=== PATIENT | female | born 1950 | race American Indian/Alaskan Native ===

== ENCOUNTER 2018-02-15 07:20 | Inpatient (IN) | payer MEDICARE, MEDICAID ==
[2018-02-15 07:21] VITALS: BMI 28.5
--- NOTE | 2018-02-15 07:53 | C.PDOC ---
History Of Present Illness 67 y/o female on hemodialysis transferred from [facility] for dialysis become [facility] does not have dialysis service at time time. The patient was found to be febrile and still having shortness of breath. Denies vomiting and diarrhea. Time Seen by Provider: 02/15/18 07:38 Chief Complaint (Nursing): Shortness Of Breath History Per: EMS History/Exam Limitations: clinical condition Onset/Duration Of Symptoms: Hrs Current Symptoms Are (Timing): Still Present Past Medical History Reviewed: Historical Data, Nursing Documentation, Vital Signs Vital Signs: Last Vital Signs Temp 101.6 F H 02/15/18 07:36 Pulse 84 02/15/18 07:36 Resp 24 02/15/18 07:41 BP 155/60 H 02/15/18 07:36 Pulse Ox 96 02/15/18 08:54 - Medical History PMH: CHF, COPD, Dementia, Diabetes, Gall Bladder Disease, HTN, Peripheral Edema , Chronic Kidney Disease, Sleep Apnea Surgical History: Cholecystectomy Denies: Pacemaker - [facility] Procedures ANGIOPLASTY OF OTHER NON-CORONARY VESSEL(S) (04/30/15) CENTRAL VENOUS CATHETER PLACEMENT WITH GUIDANCE (02/20/13) COLONOSCOPY (02/20/13) CONTRAST RENAL ARTERIOGR (04/09/06) CORONAR ARTERIOGR-2 CATH (04/09/06) DX ULTRASOUND-HEART (04/09/06) ESOPHAGOGASTRODUODENOSCOPY [EGD] W/CLOSED BIOPSY (02/20/13) HEMODIALYSIS (10/31/14) INFLUENZA VACCINATION (06/04/13) INJECT/INFUSE NEC (05/11/14) LT HEART ANGIOCARDIOGRAM (04/09/06) NON-INVASIVE MECHANICAL VENTILATION (06/04/13) OTHER ENDOSCOPY OF SM INTEST (06/04/13) PERFORMANCE OF URINARY FILTRATION, MULTIPLE (05/29/15) PROCEDURE ON SINGLE VESSEL (04/30/15) RT/LEFT HEART CARD CATH (04/09/06) Family History: States: No Known Family Hx - Social History Hx Tobacco Use: Yes (Quit years ago) Hx Alcohol Use: No Hx Substance Use: No - Immunization History Hx Tetanus Toxoid Vaccination: No Hx Influenza Vaccination: No Hx Pneumococcal Vaccination: No Review Of Systems Except As Marked, All Systems Reviewed And Found Negative. Physical Exam - Physical Exam Appears: Chronically Ill, Other (obese, bedbound at baseline) Skin: Warm, Dry, No Rash Head: Atraumatic, Normacephalic Eye(s): bilateral: PERRL, EOMI Oral Mucosa: Moist Neck: Normal ROM, Supple Chest: Symmetrical, No Tenderness Cardiovascular: Rhythm Regular, No Friction Rub, No Murmur Respiratory: Rales (scattered), No Rhonchi, No Wheezing Gastrointestinal/Abdominal: Soft, No Tenderness, No Guarding, No Rebound Extremity: No Tenderness, No Swelling Pulses: Left Radial: Normal, Right Radial: Normal Neurological/Psych: Oriented x3, Normal Speech, Other (answers questions appropriately.) ED Course And Treatment - Laboratory Results Result Diagrams: 02/15/18 08:30 O2 Sat by Pulse Oximetry: 96 (RA) Pulse Ox Interpretation: Normal Critical Care Time - Critical Care Note Total Time (in mins): 45 Comments: See Medical decision Making Documented critical care: time excludes all time spent performing seperately billable procedures. Medical Decision Making Medical Decision Making: Old records reviewed, the patient was seen at [facility] earlier today and had normal WBC, CXR reviewed there may be possible pneumonia in the RLL. Progress: D/w Dr. Monserrat Randall (hospitalist) advise to repeat labs and start septic work up. Fluids were not started because the patient is a dialysis and is fluid overloaded. Blood cultures collected. EKG at 0800: NSR at 80, normal axis. The patient does not make urine so not urine cultures collected. The patient was started on Rocephin and Zithromax for CAP as the patient is coming from home , has no recent admission and does not live in the care home. Those medications were canceled and Dr. Monserrat Randall is requesting to switch the medications to Cipro 400mg IV, Zosyn 2.275 and Vanco as the patient has history of drug resistance. Disposition - Disposition Disposition: HOSPITALIZED Disposition Time: 08:39 Condition: GUARDED Forms: [facility] (Burmese) - POA Present On Arrival: None - Clinical Impression Clinical Impression: Pneumonia, Hyperkalemia, Renal failure, Uremia - PA / VISUAL BASIC .NET DEVELOPER / Resident Statement MD/DO has reviewed & agrees with the documentation as recorded. - Scribe Statement The provider has reviewed the documentation as recorded by the Reggieibcaridad Nick All medical record entries made by the Reggieibcaridad were at my direction and personally dictated by me. I have reviewed the chart and agree that the record accurately reflects my personal performance of the history, physical exam, medical decision making, and the department course for this patient. I have also personally directed, reviewed, and agree with the discharge instructions and disposition.
--- NOTE | 2018-02-15 08:30 | RAD ---
HISTORY: Sepsis Patient COMPARISON: No prior. FINDINGS: LUNGS: Diffuse bilateral infiltrates ; findings may represent edema/CHF however bilateral pneumonia not excluded. Bilateral effusions. PLEURA: As above. No pneumothorax apparent. CARDIOVASCULAR: Heart appears enlarged OSSEOUS STRUCTURES: No significant abnormalities. VISUALIZED UPPER ABDOMEN: Normal. OTHER FINDINGS: None. IMPRESSION: Diffuse bilateral infiltrates ; findings may represent edema/CHF however bilateral pneumonia not excluded. Bilateral effusions.
[2018-02-15 08:34] LABS: BASO % 0.2 % (0.0-2.0); LYMPH # 0.7 K/uL (1.0-4.3); LYMPH % 9.1 % (20.0-40.0); MEAN CELL VOLUME 84.1 fL (81.0-99.0); MEAN CORPUSCULAR HEMOGLOBIN 27.3 pg (27.0-31.0); MEAN CORPUSCULAR HGB CONC 32.4 g/dL (33.0-37.0); MEAN PLATELET VOLUME 9.1 fL (7.2-11.7); MONO # 1.2 K/uL (0.0-0.8); MONO % 16.4 % (0.0-10.0); NEUT # 5.6 K/uL (1.8-7.0); NEUT % 74.3 % (50.0-75.0); PLATELET COUNT 164 K/uL (130-400); RED CELL DISTRIBUTION WIDTH 14.5 % (11.5-14.5); WHITE BLOOD COUNT 7.5 K/uL (4.8-10.8)
[2018-02-15] MEDS ORDERED: Acetaminophen 650mg/20.3ml solution UD ONE (08:35)
[2018-02-15] MEDS ORDERED: cefTRIAXone IV 1 gm in Dextros 50 ML IV ONE (08:36)
[2018-02-15] MEDS ORDERED: Azithromycin 500mg/250ML NS 500 MG/250 ML BAG IVPB STA (08:36)
[2018-02-15 08:41] LABS: INR 1.2; PROTHROMBIN TIME 13.3 SECONDS (9.7-12.2)
[2018-02-15 08:42] LABS: VENOUS BLOOD GAS BASE EXCESS 8.5 mmol/L (0.0-2.0); VENOUS BLOOD GAS PCO2 52 mmHg (40-60); VENOUS BLOOD GAS PO2 41 mm/Hg (30-55); VENOUS BLOOD PH 7.43 (7.32-7.43)
[2018-02-15] MEDS ORDERED: cefTRIAXone IV 1 gm in Dextros 50 ML IVPB ONE (08:45)
[2018-02-15] MEDS ORDERED: Vancomycin 1 gm/NS 200 ml 1 GM/200 ML BAG IVPB STA (08:57)
[2018-02-15] MEDS ORDERED: Piperacill/Tazo 2.25gm in Dex 2.25 GM/50 ML BAG IVPB STA (08:58)
[2018-02-15] MEDS ORDERED: Ciprofloxacin 400mg/200ml D5W 400 MG/200 ML BAG IVPB STA (08:59)
[2018-02-15] MEDS ORDERED: Oxycodone/Acetaminophen 5/325 mg Tab ONE (09:06)
[2018-02-15] MEDS ORDERED: Piperacillin/Tazobact 3.375 gm 100 ML IVPB ONE (09:06)
[2018-02-15] MEDS ORDERED: Ciprofloxacin 400mg/200ml D5W 400 MG/200 ML BAG IVPB ONE (09:06)
[2018-02-15 09:07] LABS: LYMPHOCYTE 11 % (20-40); MONOCYTE 17 % (0-10); NEUTROPHIL 72 % (50-75); PLATELET ESTIMATE NORMAL (NORMAL); TOTAL CELLS COUNTED 100
[2018-02-15 09:08] LABS: ANISOCYTOSIS SLIGHT; HYPOCHROMIC SLIGHT; POIKILOCYTOSIS SLIGHT
[2018-02-15 09:13] LABS: ALB/GLOB RATIO 1.1 (1.0-2.1); ALBUMIN 3.8 g/dL (3.5-5.0); CALCIUM 9.7 mg/dl (8.6-10.4)
[2018-02-15] MEDS ORDERED: Oxycodone/Acetaminophen 5/325 mg Tab PO STA (09:18)
--- NOTE | 2018-02-15 10:10 | CP.PCM.HP ---
<Rosalina Herrmann - Last Filed: 02/15/18 16:37> History of Present Illness - History of Present Illness History of Present Illness: CC: SOB HPI: Patient is a 67 year old female with a past medical history of ESRD on hemodialysis (Sunday, Sunday, Sunday), COPD, CHF, diabetes, hypertension, macular degeneration, peripheral neuropathy, hyperlipidemia, and CVA, who presents to the ED with complaints of shortness of breath for two days. She originally went to [facility] ER, and was transferred to [facility] as [facility] does not have dialysis center. Patient is a poor historian due to lethargy secondary to receiving pain medication in the ED. She states she felt short of breath two days ago after getting dialysis, and the dyspnea has persisted. She also reports having nausea, vomiting, and abdominal pain. Review of systems limited due to patient's lethargy secondary to medication given in ED. PMD: Dr. Gonzales Nephrology: Dr. Jacques PMHx: PER EMR- ESRD on hemodialysis (Sunday, Sunday, Sunday), COPD, CHF, diabetes, hypertension, macular degeneration, peripheral neuropathy, hyperlipidemia, and CVA SurgHx: patient denies; per EMR- pacemaker, left arm AV shunt, , right eye corneal surgery, right toe#5 amputation, cardiac cath FamHx: patient denies fam hx SocHx: denies tobacco, alcohol, and drug use; former 2pack per day smoker (did not answer when asked for how many year); lives alone; has a walker for ambulation but does not use. Allergies: NKDA Medications: per EMR- norvasc 10mg po daily, asa 81mg po daily, lipitor 10mg po hs, phoslo 667mg po tid, clonidine 0.1mg po bid, docusate 100mg po bid, pepcid 20mg po daily, gabapentin 100mg po tid, losartan 25mg po daily, metoprolol 25mg po bid, protonix 20mg po daily, renagel 800mg po tid. Present on Admission - Present on Admission Any Indicators Present on Admission: No Review of Systems - Review of Systems Review of Systems: lethargic secondary to medication; limited review of systems. - Constitutional Constitutional: absent: Headache - EENT Eyes: Other Visual Disturbances (blind bilaterally) - Cardiovascular Cardiovascular: Dyspnea. absent: Chest Pain - Respiratory Respiratory: Cough, Dyspnea. absent: Excessive Mucous Production - Gastrointestinal Gastrointestinal: Abdominal Pain, Vomiting. absent: Constipation, Diarrhea, Nausea - Genitourinary Genitourinary: Voiding Freq/Small Amts - Neurological Neurological: absent: Headaches - Endocrine Endocrine: absent: Palpitations Past Patient History - Infectious Disease Hx of Infectious Diseases: None - Tetanus Immunizations Tetanus Immunization: Unknown - Past Social History Smoking Status: Former Smoker - CARDIAC Hx Congestive Heart Failure: Yes Hx Hypertension: Yes Hx Pacemaker: No Hx Peripheral Edema: Yes - PULMONARY Hx Chronic Obstructive Pulmonary Disease (COPD): Yes Hx Sleep Apnea: Yes - NEUROLOGICAL Hx Dementia: Yes - HEENT Hx HEENT Problems: Yes Hx Blind: Yes (legally blind) - RENAL Hx Chronic Kidney Disease: Yes - ENDOCRINE/METABOLIC Hx Endocrine Disorders: Yes Hx Diabetes Mellitus Type 1: Yes Hx Diabetes Mellitus Type 2: Yes - HEMATOLOGICAL/ONCOLOGICAL Hx Blood Disorders: No - INTEGUMENTARY Hx Dermatological Problems: No - MUSCULOSKELETAL/RHEUMATOLOGICAL Hx Musculoskeletal Disorders: No Hx Back Pain: Yes (fell in [employer] 2012) Hx Falls: Yes Hx Unsteady Gait: Yes (walker) - GASTROINTESTINAL Hx Gall Bladder Disease: Yes - GENITOURINARY/GYNECOLOGICAL Hx Genitourinary Disorders: Yes (ANURIA) - PSYCHIATRIC Hx Substance Use: No - SURGICAL HISTORY Hx Cholecystectomy: Yes - ANESTHESIA Hx Anesthesia: Yes Hx Anesthesia Reactions: No Hx Malignant Hyperthermia: No Meds Allergies/Adverse Reactions: Allergies Allergy/AdvReac Type Severity Reaction Status Date / Time No Known Allergies Allergy Verified 10/31/16 19:41 Physical Exam - Constitutional Appears: No Acute Distress, Chronically Ill, Other (lethargic) - Eye Exam Eye Exam: absent: Normal appearance (right eye-cataract) - ENT Exam ENT Exam: Mucous Membranes Dry - Respiratory Exam Respiratory Exam: Decreased Breath Sounds, Rales, Rhonchi, Wheezes. absent: Clear to Auscultation Bilateral, Respiratory Distress - Cardiovascular Exam Cardiovascular Exam: REGULAR RHYTHM, +S1, +S2, Systolic Murmur - GI/Abdominal Exam GI & Abdominal Exam: Normal Bowel Sounds, Soft. absent: Distended, Firm, Tenderness - Extremities Exam Extremities exam: Positive for: pedal edema, pedal pulses present. Negative for : tenderness Additional comments: AV fistula-left arm - Neurological Exam Additional comments: lethargic; UE/LE 5/5 strength, CNII-XII intact - Psychiatric Exam Psychiatric exam: Flat Affect - Skin Skin Exam: Intact, Normal Color, Warm Results - Vital Signs Recent Vital Signs: Last Vital Signs Temp 101.6 F H 02/15/18 07:36 Pulse 84 02/15/18 07:36 Resp 24 02/15/18 07:41 BP 155/60 H 02/15/18 07:36 Pulse Ox 96 02/15/18 09:02 - Labs Result Diagrams: 02/15/18 08:30 02/15/18 08:30 Labs: Laboratory Results - last 24 hr 02/15/18 02/15/18 02/15/18 08:30 08:30 08:30 WBC 7.5 RBC 3.30 L Hgb 9.0 L Hct 27.7 L MCV 84.1 MCH 27.3 MCHC 32.4 L RDW 14.5 Plt Count 164 MPV 9.1 Neut % (Auto) 74.3 Lymph % (Auto) 9.1 L [place] % (Auto) 16.4 H Eos % (Auto) 0.0 Baso % (Auto) 0.2 Neut # (Auto) 5.6 Lymph # (Auto) 0.7 L [place] # (Auto) 1.2 H Eos # (Auto) 0.0 Baso # (Auto) 0.0 Neutrophils % (Manual) 72 Lymphocytes % (Manual) 11 L Monocytes % (Manual) 17 H Platelet Estimate Normal Hypochromasia (manual) Slight Poikilocytosis (manual Slight Anisocytosis (manual) Slight PT 13.3 H INR 1.2 APTT 34 pO2 VBG pH VBG pCO2 VBG HCO3 VBG Total CO2 VBG O2 Sat (Calc) VBG Base Excess VBG Potassium Glucose Lactate Crit Value Called To Crit Value Called By Crit Value Read Back Blood Gas Notified Time Sodium 138 Potassium 6.5 H* Chloride 95 L Carbon Dioxide 34 H Anion Gap 16 BUN 35 H Creatinine 8.9 H* Est GFR ( Amer) 5 Est GFR (Non-Af Amer) 4 Random Glucose 173 H Calcium 9.7 Phosphorus 0.9 L* Magnesium 2.2 Total Bilirubin 0.7 AST 31 ALT 28 Alkaline Phosphatase 61 Total Protein 7.3 Albumin 3.8 Globulin 3.5 Albumin/Globulin Ratio 1.1 Venous Blood Potassium 02/15/18 08:33 WBC RBC Hgb Hct MCV MCH MCHC RDW Plt Count MPV Neut % (Auto) Lymph % (Auto) [place] % (Auto) Eos % (Auto) Baso % (Auto) Neut # (Auto) Lymph # (Auto) [place] # (Auto) Eos # (Auto) Baso # (Auto) Neutrophils % (Manual) Lymphocytes % (Manual) Monocytes % (Manual) Platelet Estimate Hypochromasia (manual) Poikilocytosis (manual Anisocytosis (manual) PT INR APTT pO2 41 VBG pH 7.43 VBG pCO2 52 VBG HCO3 31.0 VBG Total CO2 36.1 H VBG O2 Sat (Calc) 82.0 H VBG Base Excess 8.5 H VBG Potassium 6.3 H* Glucose 188 H Lactate 2.8 H Crit Value Called To Dr lee Crit Value Called By Christo sommer fruit express agent Crit Value Read Back Y Blood Gas Notified Time 842 Sodium 134.0 Potassium Chloride 100.0 Carbon Dioxide Anion Gap BUN Creatinine Est GFR ( Amer) Est GFR (Non-Af Amer) Random Glucose Calcium Phosphorus Magnesium Total Bilirubin AST ALT Alkaline Phosphatase Total Protein Albumin Globulin Albumin/Globulin Ratio Venous Blood Potassium 6.3 H* Assessment & Plan - Assessment and Plan (Free Text) Plan: Bilateral Pneumonia: * Chest xray: diffuse b/l infiltrates; may represent edema/CHF however b/l pneumonia not excluded; b/l effusions * ID consulted, Dr. Cowan, help appreciated; Dr. Cowan already aware * Follow up: legionella, strep pneumo, mycoplasma, influenza * Nasal MRSA: f/u * Lactate: 2.8, repeat was 1.8 * Procalcitonin: 1.02 H * Blood cx: f/u * Urine cx via straight cath: f/u * Induced sputum cx: f/u * Medications: * Zosyn 2.25g IV Q8h at 6pm (active since 02/15/18) * Cipro 400mg IV daily at 10am (active 02/16/18) * Vanco 1gm IV daily at 10am (active 02/16/18) CHF Exacerbation, Diastolic (HFpEF) * Cardiology consulted, Dr. gunn, help appreciated * Echo in 08/19: concentric LVH, EF 65%, grade II diastolic dysfunction * Echo: f/u * Strict I/Os * HOB at 45 degree angle * Daily weights ESRD (MWF) * Nephrology consulted, Dr. Samuel- help appreciated; Dr. Samuel already aware and writtten orders for HD; * Schedule-MWF; dialysis via left arm AV fistula; patient scheduled for dialysis today * Medications: * Phoslo 667mg PO TID * Sevelamir 800mg PO TID DM * Accuchecks ACHS * A1c (2014) 6.1 * A1c: f/u * TSH/Free T4: f/u * Patient is not on any insulin or hypoglycemics * ISS * Hypoglycemic protocol HTN * Continue Norvasc 10mg PO HS, Losartan 25mg PO daily * Continue clonidine 0.1mg PO BID at 8am & 8pm * Hold metoprolol tartrate 25mg PO BID til after HD and reassess patient. * Continue to monitor COPD w/Sleep Apnea w/Bipap * Patient is not on any inhalers at home * Pulmonology consulted, Dr. Moe- help appreciated * Spiriva 18mcg daily * BiPAP 08/08 at FiO2 60% at bedtime HLD * Crestor 5mg PO HS * Lipid panel: f/u CVA affecting left side * PT/OT eval and treat and for TRINIDAD evaluation * Continue aspirin 81mg PO daily and crestor 5mg PO HS PVD, neuropathy * Continue aspirin 81mg PO daily and crestor 5mg PO HS * Continue Gabapentin 100mg PO TID Anemia secondary to CKD * Monitor Hgb/Hct Prophylaxis * Protonix 20mg PO daily * Heparin 5000u sc Q8h * No SCDs due to LE neuropathy * Heart healthy 2gm Na renal low carb diet <Ja Randall - Last Filed: 02/15/18 20:28> Results - Vital Signs Recent Vital Signs: Last Vital Signs Temp 98.3 F 02/15/18 17:10 Pulse 78 02/15/18 18:00 Resp 18 02/15/18 17:10 BP 151/50 H 02/15/18 17:10 Pulse Ox 95 02/15/18 17:10 - Labs Result Diagrams: 02/15/18 08:30 02/15/18 08:30 Labs: Laboratory Results - last 24 hr 02/15/18 02/15/18 02/15/18 08:30 08:30 08:30 WBC 7.5 RBC 3.30 L Hgb 9.0 L Hct 27.7 L MCV 84.1 MCH 27.3 MCHC 32.4 L RDW 14.5 Plt Count 164 MPV 9.1 Neut % (Auto) 74.3 Lymph % (Auto) 9.1 L [place] % (Auto) 16.4 H Eos % (Auto) 0.0 Baso % (Auto) 0.2 Neut # (Auto) 5.6 Lymph # (Auto) 0.7 L [place] # (Auto) 1.2 H Eos # (Auto) 0.0 Baso # (Auto) 0.0 Neutrophils % (Manual) 72 Lymphocytes % (Manual) 11 L Monocytes % (Manual) 17 H Platelet Estimate Normal Hypochromasia (manual) Slight Poikilocytosis (manual Slight Anisocytosis (manual) Slight PT 13.3 H INR 1.2 APTT 34 pO2 VBG pH VBG pCO2 VBG HCO3 VBG Total CO2 VBG O2 Sat (Calc) VBG Base Excess VBG Potassium Glucose Lactate Crit Value Called To Crit Value Called By Crit Value Read Back Blood Gas Notified Time Sodium 138 Potassium 6.5 H* Chloride 95 L Carbon Dioxide 34 H Anion Gap 16 BUN 35 H Creatinine 8.9 H* Est GFR ( Amer) 5 Est GFR (Non-Af Amer) 4 POC Glucose (mg/dL) Random Glucose 173 H Calcium 9.7 Phosphorus 0.9 L* Magnesium 2.2 Total Bilirubin 0.7 AST 31 ALT 28 Alkaline Phosphatase 61 Total Protein 7.3 Albumin 3.8 Globulin 3.5 Albumin/Globulin Ratio 1.1 Procalcitonin Venous Blood Potassium Influenza Typ A,B (EIA) 02/15/18 02/15/18 02/15/18 08:33 11:00 11:05 WBC RBC Hgb Hct MCV MCH MCHC RDW Plt Count MPV Neut % (Auto) Lymph % (Auto) [place] % (Auto) Eos % (Auto) Baso % (Auto) Neut # (Auto) Lymph # (Auto) [place] # (Auto) Eos # (Auto) Baso # (Auto) Neutrophils % (Manual) Lymphocytes % (Manual) Monocytes % (Manual) Platelet Estimate Hypochromasia (manual) Poikilocytosis (manual Anisocytosis (manual) PT INR APTT pO2 41 42 VBG pH 7.43 7.41 VBG pCO2 52 55 VBG HCO3 31.0 31.0 VBG Total CO2 36.1 H 36.6 H VBG O2 Sat (Calc) 82.0 H 83.7 H VBG Base Excess 8.5 H 8.4 H VBG Potassium 6.3 H* 6.8 H* Glucose 188 H 191 H Lactate 2.8 H 1.8 Crit Value Called To Dr jesus hernandez (cruz) Crit Value Called By Christo sommer fruit express agent Alden valderrama,kaitlynn Crit Value Read Back Y Y Blood Gas Notified Time 842 1122 Sodium 134.0 133.0 Potassium Chloride 100.0 100.0 Carbon Dioxide Anion Gap BUN Creatinine Est GFR ( Amer) Est GFR (Non-Af Amer) POC Glucose (mg/dL) Random Glucose Calcium Phosphorus Magnesium Total Bilirubin AST ALT Alkaline Phosphatase Total Protein Albumin Globulin Albumin/Globulin Ratio Procalcitonin 1.02 H Venous Blood Potassium 6.3 H* 6.8 H* Influenza Typ A,B (EIA) 02/15/18 02/15/18 02/15/18 11:26 13:30 16:42 WBC RBC Hgb Hct MCV MCH MCHC RDW Plt Count MPV Neut % (Auto) Lymph % (Auto) [place] % (Auto) Eos % (Auto) Baso % (Auto) Neut # (Auto) Lymph # (Auto) [place] # (Auto) Eos # (Auto) Baso # (Auto) Neutrophils % (Manual) Lymphocytes % (Manual) Monocytes % (Manual) Platelet Estimate Hypochromasia (manual) Poikilocytosis (manual Anisocytosis (manual) PT INR APTT pO2 VBG pH VBG pCO2 VBG HCO3 VBG Total CO2 VBG O2 Sat (Calc) VBG Base Excess VBG Potassium Glucose Lactate Crit Value Called To Crit Value Called By Crit Value Read Back Blood Gas Notified Time Sodium Potassium Chloride Carbon Dioxide Anion Gap BUN Creatinine Est GFR ( Amer) Est GFR (Non-Af Amer) POC Glucose (mg/dL) 184 H 155 H Random Glucose Calcium Phosphorus Magnesium Total Bilirubin AST ALT Alkaline Phosphatase Total Protein Albumin Globulin Albumin/Globulin Ratio Procalcitonin Venous Blood Potassium Influenza Typ A,B (EIA) Negative for flu a/b Attending/Attestation - Attestation I have personally seen and examined this patient.: Yes I have fully participated in the care of the patient.: Yes I have reviewed all pertinent clinical information: Yes
[2018-02-15 11:20] LABS: VENOUS BLOOD GAS BASE EXCESS 8.4 mmol/L (0.0-2.0); VENOUS BLOOD GAS PCO2 55 mmHg (40-60); VENOUS BLOOD GAS PO2 42 mm/Hg (30-55); VENOUS BLOOD PH 7.41 (7.32-7.43)
--- NOTE | 2018-02-15 15:16 | CP.PCM.CON ---
History of Present Illness - History of Present Illness History of Present Illness: Nephrology Consultation Note: Assessment: critical Pneumonia, fluid overload Hyperkalemia Diabetic chronic Kidney Disease (E11.22) Hypertensive Chronic Kidney Disease (I12.0) End stage renal disease (N18.6) dependence on hemodialysis (Z99.2) (MWF) via AVF Anemia (D64.9), Hyperphosphatemia (E83.39), Secondary Hyperparathyroidism (E21.1 ), HTN (I12.0) chronic Hep C Plan: will plan for dialysis today as ordered per MWF schedule. Continue with Nephrovite 1 tab/day. PRBC as needed for anemia. On LOUISA as epogen with HD as last Hb 9 Continue with phos binders home dose check phos level BP control with meds as ordered. continue with home meds. she is on RAAS blockade with losartan, hold due to hyperkalemia. Glycemic control, Dialysis consistent diet Further work up/management as per primary team Dose meds/antibiotics for ESRD status. Avoid fleets enema/magnesium based laxatives Thanks for allowing me to participate in care of your patient. Will follow patient with you. Please call if any Qs. d/w family and team Dr Vic Samuel Office: [phone] Chief Complaint; SOB reason for consult; ESRD HPI: Pt is a 67 F with hx of ESRD on hemodialysis (MWF) via AVF, last dialysis wed x 4 years @ [facility], chronic anemia, hyperphosphatemia, secondary hyperparathyroidism, Diabetes Mellitus, hypertension, chronic Hep C, legally blind, neuropathy presented with complaints of SOB and fever x 1 day and being admitted for pneumonia. renal consult for ESRD management. pt says she felt fine 1 day before. felt cold with chills at home with SOB x 1 day. ROS: She feels better now Denies chest pain, palpitation, better shortness of breath, denies leg swelling. makes small amount of urine has cough. all other negative Physical Examination: General Appearance: Comfortable, in no acute respiratory distress, co-operative . Vitals reviewed and noted as below Head; Atraumatic, normocephalic ENT: no ulcers no thrush. Tongue is midline. Oropharynx: no rash or ulcers. EYES: she is blind Neck; supple no lymphadenopathy, no thyromegaly or bruit Lungs: Normal respiratory rate/effort. Breath sounds bilateral decreased at bases with crackles Heart: Normal rate. s1s2 normal. No rub or gallop. Extremities: no edema. No varicose veins Neurological: Patient is alert, awake and oriented to person, place and time. No focal deficit. Strength bilateral appropriate and equal Skin: Warm and dry. Normal turgor. No rash. Palpitation: Normal elasticity for age Abdomen: Abdomen is soft. Bowel sounds +. There is no abdominal tenderness, no guarding/rigidity or organomegaly Psych: normal insight and normal affect/mood MSK: no joint tenderness or swelling. Digits and nails normal, no deformity : kidney or bladder not palpable Access: AVF LUE with thrill and bruit Labs/imaging reviewed. Past medical history, past surgical history, family history, social history, allergy reviewed and noted as below Family Hx: no hx of CKD. Non contributory normal LV function: echo aug 2017 Past Patient History - Infectious Disease Hx of Infectious Diseases: None - Tetanus Immunizations Tetanus Immunization: Unknown - Past Social History Smoking Status: Former Smoker - CARDIAC Hx Congestive Heart Failure: Yes Hx Hypertension: Yes Hx Pacemaker: No Hx Peripheral Edema: Yes - PULMONARY Hx Chronic Obstructive Pulmonary Disease (COPD): Yes Hx Sleep Apnea: Yes - NEUROLOGICAL Hx Dementia: Yes - HEENT Hx HEENT Problems: Yes Hx Blind: Yes (legally blind) - RENAL Hx Chronic Kidney Disease: Yes - ENDOCRINE/METABOLIC Hx Endocrine Disorders: Yes Hx Diabetes Mellitus Type 1: Yes Hx Diabetes Mellitus Type 2: Yes - HEMATOLOGICAL/ONCOLOGICAL Hx Blood Disorders: No - INTEGUMENTARY Hx Dermatological Problems: No - MUSCULOSKELETAL/RHEUMATOLOGICAL Hx Musculoskeletal Disorders: No Hx Back Pain: Yes (fell in shop [id number]) Hx Falls: Yes Hx Unsteady Gait: Yes (walker) - GASTROINTESTINAL Hx Gall Bladder Disease: Yes - GENITOURINARY/GYNECOLOGICAL Hx Genitourinary Disorders: Yes (ANURIA) - PSYCHIATRIC Hx Substance Use: No - SURGICAL HISTORY Hx Cholecystectomy: Yes - ANESTHESIA Hx Anesthesia: Yes Hx Anesthesia Reactions: No Hx Malignant Hyperthermia: No Meds Allergies/Adverse Reactions: Allergies Allergy/AdvReac Type Severity Reaction Status Date / Time No Known Allergies Allergy Verified 10/31/16 19:41 - Medications Medications: Current Medications Acetylcysteine (Acetylcysteine 20%) 4 ml INH ONCE ONE Stop: 02/16/18 06:31 Albuterol/Ipratropium (Duoneb 3 Mg/0.5 Mg (3 Ml) Ud) 3 ml INH ONCE ONE Stop: 02/16/18 06:31 Heparin Sodium (Porcine) (Heparin) 5,000 units SC Q12 [facility] Heparin Sodium (Porcine) (Heparin) 2,000 units IVP MWF [facility] Insulin Human Regular (Novolin R) 0 unit SC ACHS NISHANT PRN Reason: Protocol Vitamin B Complex/Vit C/Folic Acid (Nephro-Lorena) 1 tab PO 0800 [facility] Results - Vital Signs Recent Vital Signs: Last Vital Signs Temp 98.1 F 02/15/18 13:40 Pulse 66 02/15/18 13:40 Resp 20 02/15/18 13:40 BP 114/54 L 02/15/18 14:10 Pulse Ox 96 02/15/18 13:40 - Labs Result Diagrams: 02/15/18 08:30 02/15/18 08:30 Labs: Laboratory Results - last 24 hr 02/15/18 02/15/18 02/15/18 08:30 08:30 08:30 WBC 7.5 RBC 3.30 L Hgb 9.0 L Hct 27.7 L MCV 84.1 MCH 27.3 MCHC 32.4 L RDW 14.5 Plt Count 164 MPV 9.1 Neut % (Auto) 74.3 Lymph % (Auto) 9.1 L Mcmullen % (Auto) 16.4 H Eos % (Auto) 0.0 Baso % (Auto) 0.2 Neut # (Auto) 5.6 Lymph # (Auto) 0.7 L Mcmullen # (Auto) 1.2 H Eos # (Auto) 0.0 Baso # (Auto) 0.0 Neutrophils % (Manual) 72 Lymphocytes % (Manual) 11 L Monocytes % (Manual) 17 H Platelet Estimate Normal Hypochromasia (manual) Slight Poikilocytosis (manual Slight Anisocytosis (manual) Slight PT 13.3 H INR 1.2 APTT 34 pO2 VBG pH VBG pCO2 VBG HCO3 VBG Total CO2 VBG O2 Sat (Calc) VBG Base Excess VBG Potassium Glucose Lactate Crit Value Called To Crit Value Called By Crit Value Read Back Blood Gas Notified Time Sodium 138 Potassium 6.5 H* Chloride 95 L Carbon Dioxide 34 H Anion Gap 16 BUN 35 H Creatinine 8.9 H* Est GFR ( Amer) 5 Est GFR (Non-Af Amer) 4 POC Glucose (mg/dL) Random Glucose 173 H Calcium 9.7 Phosphorus 0.9 L* Magnesium 2.2 Total Bilirubin 0.7 AST 31 ALT 28 Alkaline Phosphatase 61 Total Protein 7.3 Albumin 3.8 Globulin 3.5 Albumin/Globulin Ratio 1.1 Procalcitonin Venous Blood Potassium 02/15/18 02/15/18 02/15/18 08:33 11:00 11:05 WBC RBC Hgb Hct MCV MCH MCHC RDW Plt Count MPV Neut % (Auto) Lymph % (Auto) Mcmullen % (Auto) Eos % (Auto) Baso % (Auto) Neut # (Auto) Lymph # (Auto) Mcmullen # (Auto) Eos # (Auto) Baso # (Auto) Neutrophils % (Manual) Lymphocytes % (Manual) Monocytes % (Manual) Platelet Estimate Hypochromasia (manual) Poikilocytosis (manual Anisocytosis (manual) PT INR APTT pO2 41 42 VBG pH 7.43 7.41 VBG pCO2 52 55 VBG HCO3 31.0 31.0 VBG Total CO2 36.1 H 36.6 H VBG O2 Sat (Calc) 82.0 H 83.7 H VBG Base Excess 8.5 H 8.4 H VBG Potassium 6.3 H* 6.8 H* Glucose 188 H 191 H Lactate 2.8 H 1.8 Crit Value Called To Dr jesus hernandez ([place]) Crit Value Called By Christo sommer mixer diamond powder Alden valderrama,kaitlynn Crit Value Read Back Y Y Blood Gas Notified Time 842 1122 Sodium 134.0 133.0 Potassium Chloride 100.0 100.0 Carbon Dioxide Anion Gap BUN Creatinine Est GFR ( Amer) Est GFR (Non-Af Amer) POC Glucose (mg/dL) Random Glucose Calcium Phosphorus Magnesium Total Bilirubin AST ALT Alkaline Phosphatase Total Protein Albumin Globulin Albumin/Globulin Ratio Procalcitonin 1.02 H Venous Blood Potassium 6.3 H* 6.8 H* 02/15/18 11:26 WBC RBC Hgb Hct MCV MCH MCHC RDW Plt Count MPV Neut % (Auto) Lymph % (Auto) Mcmullen % (Auto) Eos % (Auto) Baso % (Auto) Neut # (Auto) Lymph # (Auto) Mcmullen # (Auto) Eos # (Auto) Baso # (Auto) Neutrophils % (Manual) Lymphocytes % (Manual) Monocytes % (Manual) Platelet Estimate Hypochromasia (manual) Poikilocytosis (manual Anisocytosis (manual) PT INR APTT pO2 VBG pH VBG pCO2 VBG HCO3 VBG Total CO2 VBG O2 Sat (Calc) VBG Base Excess VBG Potassium Glucose Lactate Crit Value Called To Crit Value Called By Crit Value Read Back Blood Gas Notified Time Sodium Potassium Chloride Carbon Dioxide Anion Gap BUN Creatinine Est GFR ( Amer) Est GFR (Non-Af Amer) POC Glucose (mg/dL) 184 H Random Glucose Calcium Phosphorus Magnesium Total Bilirubin AST ALT Alkaline Phosphatase Total Protein Albumin Globulin Albumin/Globulin Ratio Procalcitonin Venous Blood Potassium
[2018-02-15] MEDS ORDERED: Home Med 1 UNIT (Atorvastatin [Lipitor] 10 MG) PO SCH (17:00)
[2018-02-15] MEDS: (Novolin R) Insulin Human Regular 100 units/ml vial SC SCH ×2 (17:10→21:58)
[2018-02-15] MEDS: Piperacillin/Tazobact 2.25 GM in Sodium Chloride 100 ML IVPB SCH (18:50)
--- NOTE | 2018-02-15 18:52 | CP.PCM.CON ---
History of Present Illness - History of Present Illness History of Present Illness: 67 year old female presents to the ED with complaints of shortness of breath for two days. Referred for ID leonora for antibiotic management of pneumonia Seen at bedside where her is feeding her- she is awake and says less SOB c/o leg pain denies chest pain or abd pain Left arm AV fistula with good bruit PMHx: PER EMR- ESRD on hemodialysis (Sunday, Sunday, Sunday), COPD, CHF, diabetes, hypertension, macular degeneration, peripheral neuropathy, hyperlipidemia, and CVA SurgHx: pacemaker, left arm AV shunt, , right eye corneal surgery, right toe#5 amputation, cardiac cath FamHx: patient denies fam hx SocHx: denies tobacco, alcohol, and drug use; former 2pack per day smoker (did not answer when asked for how many year); lives alone; has a walker for ambulation but does not use. Allergies: NKDA Medications: per EMR- norvasc 10mg po daily, asa 81mg po daily, lipitor 10mg po hs, phoslo 667mg po tid, clonidine 0.1mg po bid, docusate 100mg po bid, pepcid 20mg po daily, gabapentin 100mg po tid, losartan 25mg po daily, metoprolol 25mg po bid, protonix 20mg po daily, renagel 800mg po tid. Review of Systems - Review of Systems Review of Systems: lethargic secondary to medication; limited review of systems. - Constitutional Constitutional: absent: Headache - EENT Eyes: Other Visual Disturbances (blind bilaterally) - Cardiovascular Cardiovascular: Dyspnea. absent: Chest Pain - Respiratory Respiratory: Cough, Dyspnea. absent: Excessive Mucous Production - Gastrointestinal Gastrointestinal: Abdominal Pain, Vomiting. absent: Constipation, Diarrhea, Nausea - Genitourinary Genitourinary: Voiding Freq/Small Amts - Neurological Neurological: absent: Headaches - Endocrine Endocrine: absent: Palpitations Past Patient History - Infectious Disease Hx of Infectious Diseases: None - Tetanus Immunizations Tetanus Immunization: Unknown - Past Medical History & Family History Past Medical History?: Yes - Past Social History Smoking Status: Former Smoker - CARDIAC Hx Congestive Heart Failure: Yes Hx Hypertension: Yes Hx Pacemaker: No Hx Peripheral Edema: Yes - PULMONARY Hx Chronic Obstructive Pulmonary Disease (COPD): Yes Hx Sleep Apnea: Yes - NEUROLOGICAL Hx Dementia: Yes - HEENT Hx HEENT Problems: Yes Hx Blind: Yes (legally blind) - RENAL Hx Chronic Kidney Disease: Yes - ENDOCRINE/METABOLIC Hx Endocrine Disorders: Yes Hx Diabetes Mellitus Type 1: Yes Hx Diabetes Mellitus Type 2: Yes - HEMATOLOGICAL/ONCOLOGICAL Hx Blood Disorders: No - INTEGUMENTARY Hx Dermatological Problems: No - MUSCULOSKELETAL/RHEUMATOLOGICAL Hx Musculoskeletal Disorders: No Hx Back Pain: Yes (fell in shop 2012) Hx Falls: Yes Hx Unsteady Gait: Yes (walker) - GASTROINTESTINAL Hx Gall Bladder Disease: Yes - GENITOURINARY/GYNECOLOGICAL Hx Genitourinary Disorders: Yes (ANURIA) - PSYCHIATRIC Hx Substance Use: No - SURGICAL HISTORY Hx Cholecystectomy: Yes - ANESTHESIA Hx Anesthesia: Yes Hx Anesthesia Reactions: No Hx Malignant Hyperthermia: No Meds Allergies/Adverse Reactions: Allergies Allergy/AdvReac Type Severity Reaction Status Date / Time No Known Allergies Allergy Verified 10/31/16 19:41 - Medications Medications: Current Medications Acetylcysteine (Acetylcysteine 20%) 4 ml INH ONCE ONE Stop: 02/16/18 06:31 Albuterol/Ipratropium (Duoneb 3 Mg/0.5 Mg (3 Ml) Ud) 3 ml INH ONCE ONE Stop: 02/16/18 06:31 Amlodipine Besylate (Norvasc) 10 mg PO DAILY [facility] Aspirin (Ecotrin) 81 mg PO DAILY [facility] Calcium Acetate (Phoslo) 667 mg PO TID [facility] Last Admin: 02/15/18 18:00 Dose: 667 mg Clonidine HCl (Catapres) 0.1 mg PO BID [facility] Docusate Sodium (Colace) 100 mg PO BID [facility] Last Admin: 02/15/18 18:00 Dose: 100 mg Gabapentin (Neurontin) 100 mg PO TID [facility] Last Admin: 02/15/18 18:00 Dose: 100 mg Heparin Sodium (Porcine) (Heparin) 2,000 units IVP MWF [facility] Heparin Sodium (Porcine) (Heparin) 5,000 units SC Q8 [facility] Ciprofloxacin (Cipro 400mg/200ml Dsw) 400 mg in 200 mls @ 133 mls/hr IVPB DAILY [facility] PRN Reason: Protocol Piperacillin Sod/Tazobactam (Sod 2.25 gm/ Sodium Chloride) 100 mls @ 200 mls/ hr IVPB Q8H [facility] PRN Reason: Protocol Vancomycin HCl 1 gm/ Sodium (Chloride) 250 mls @ 166.7 mls/hr IVPB Q24H [facility] PRN Reason: Protocol Insulin Human Regular (Novolin R) 0 unit SC ACHS [facility] PRN Reason: Protocol Last Admin: 02/15/18 17:10 Dose: Not Given Losartan Potassium (Cozaar) 25 mg PO DAILY [facility] Pantoprazole Sodium (Protonix Ec Tab) 20 mg PO DAILY [facility] Rosuvastatin Calcium (Crestor) 5 mg PO HS [facility] Rosuvastatin Calcium (Crestor) 5 mg PO HS [facility] Sevelamer Carbonate (Renvela) 800 mg PO TID [facility] Last Admin: 02/15/18 18:00 Dose: 800 mg Tiotropium [place] (Spiriva) 18 mcg INH RQ24 [facility] Vitamin B Complex/Vit C/Folic Acid (Nephro-Lorena) 1 tab PO 0800 [facility] Physical Exam - Constitutional Appears: Non-toxic, No Acute Distress, Chronically Ill - Head Exam Head Exam: ATRAUMATIC, NORMAL INSPECTION, NORMOCEPHALIC - Eye Exam Eye Exam: absent: Scleral icterus Additional comments: opaque right cornea - ENT Exam ENT Exam: Normal External Ear Exam - Neck Exam Neck exam: Negative for: Lymphadenopathy - Respiratory Exam Respiratory Exam: Decreased Breath Sounds, Rhonchi - Cardiovascular Exam Cardiovascular Exam: REGULAR RHYTHM, +S1, +S2 - GI/Abdominal Exam GI & Abdominal Exam: Diminished Bowel Sounds, Distended, Soft. absent: Guarding , Rebound, Rigid, Tenderness - Rectal Exam Rectal Exam: Deferred - Exam Exam: NORMAL INSPECTION - Extremities Exam Extremities exam: Positive for: pedal edema, pedal pulses present. Negative for : calf tenderness, tenderness - Back Exam Back exam: absent: CVA tenderness (L), CVA tenderness (R), paraspinal tenderness - Neurological Exam Neurological exam: Alert, CN II-XII Intact, Motor Sensory Deficit, Oriented x3 - Psychiatric Exam Psychiatric exam: Depressed - Skin Skin Exam: Dry, Intact Results - Vital Signs Recent Vital Signs: Last Vital Signs Temp 98.3 F 02/15/18 17:10 Pulse 78 02/15/18 18:00 Resp 18 02/15/18 17:10 BP 151/50 H 02/15/18 17:10 Pulse Ox 95 02/15/18 17:10 - Labs Result Diagrams: 02/15/18 08:30 02/15/18 08:30 Labs: Laboratory Results - last 24 hr 02/15/18 02/15/18 02/15/18 08:30 08:30 08:30 WBC 7.5 RBC 3.30 L Hgb 9.0 L Hct 27.7 L MCV 84.1 MCH 27.3 MCHC 32.4 L RDW 14.5 Plt Count 164 MPV 9.1 Neut % (Auto) 74.3 Lymph % (Auto) 9.1 L [place] % (Auto) 16.4 H Eos % (Auto) 0.0 Baso % (Auto) 0.2 Neut # (Auto) 5.6 Lymph # (Auto) 0.7 L [place] # (Auto) 1.2 H Eos # (Auto) 0.0 Baso # (Auto) 0.0 Neutrophils % (Manual) 72 Lymphocytes % (Manual) 11 L Monocytes % (Manual) 17 H Platelet Estimate Normal Hypochromasia (manual) Slight Poikilocytosis (manual Slight Anisocytosis (manual) Slight PT 13.3 H INR 1.2 APTT 34 pO2 VBG pH VBG pCO2 VBG HCO3 VBG Total CO2 VBG O2 Sat (Calc) VBG Base Excess VBG Potassium Glucose Lactate Crit Value Called To Crit Value Called By Crit Value Read Back Blood Gas Notified Time Sodium 138 Potassium 6.5 H* Chloride 95 L Carbon Dioxide 34 H Anion Gap 16 BUN 35 H Creatinine 8.9 H* Est GFR ( Amer) 5 Est GFR (Non-Af Amer) 4 POC Glucose (mg/dL) Random Glucose 173 H Calcium 9.7 Phosphorus 0.9 L* Magnesium 2.2 Total Bilirubin 0.7 AST 31 ALT 28 Alkaline Phosphatase 61 Total Protein 7.3 Albumin 3.8 Globulin 3.5 Albumin/Globulin Ratio 1.1 Procalcitonin Venous Blood Potassium Influenza Typ A,B (EIA) 02/15/18 02/15/18 02/15/18 08:33 11:00 11:05 WBC RBC Hgb Hct MCV MCH MCHC RDW Plt Count MPV Neut % (Auto) Lymph % (Auto) [place] % (Auto) Eos % (Auto) Baso % (Auto) Neut # (Auto) Lymph # (Auto) [place] # (Auto) Eos # (Auto) Baso # (Auto) Neutrophils % (Manual) Lymphocytes % (Manual) Monocytes % (Manual) Platelet Estimate Hypochromasia (manual) Poikilocytosis (manual Anisocytosis (manual) PT INR APTT pO2 41 42 VBG pH 7.43 7.41 VBG pCO2 52 55 VBG HCO3 31.0 31.0 VBG Total CO2 36.1 H 36.6 H VBG O2 Sat (Calc) 82.0 H 83.7 H VBG Base Excess 8.5 H 8.4 H VBG Potassium 6.3 H* 6.8 H* Glucose 188 H 191 H Lactate 2.8 H 1.8 Crit Value Called To Dr jesus hernandez (cruz) Crit Value Called By Christo sommer alley worker Alden valderrama,alley worker Crit Value Read Back Y Y Blood Gas Notified Time 842 1122 Sodium 134.0 133.0 Potassium Chloride 100.0 100.0 Carbon Dioxide Anion Gap BUN Creatinine Est GFR ( Amer) Est GFR (Non-Af Amer) POC Glucose (mg/dL) Random Glucose Calcium Phosphorus Magnesium Total Bilirubin AST ALT Alkaline Phosphatase Total Protein Albumin Globulin Albumin/Globulin Ratio Procalcitonin 1.02 H Venous Blood Potassium 6.3 H* 6.8 H* Influenza Typ A,B (EIA) 02/15/18 02/15/18 02/15/18 11:26 13:30 16:42 WBC RBC Hgb Hct MCV MCH MCHC RDW Plt Count MPV Neut % (Auto) Lymph % (Auto) [place] % (Auto) Eos % (Auto) Baso % (Auto) Neut # (Auto) Lymph # (Auto) [place] # (Auto) Eos # (Auto) Baso # (Auto) Neutrophils % (Manual) Lymphocytes % (Manual) Monocytes % (Manual) Platelet Estimate Hypochromasia (manual) Poikilocytosis (manual Anisocytosis (manual) PT INR APTT pO2 VBG pH VBG pCO2 VBG HCO3 VBG Total CO2 VBG O2 Sat (Calc) VBG Base Excess VBG Potassium Glucose Lactate Crit Value Called To Crit Value Called By Crit Value Read Back Blood Gas Notified Time Sodium Potassium Chloride Carbon Dioxide Anion Gap BUN Creatinine Est GFR ( Amer) Est GFR (Non-Af Amer) POC Glucose (mg/dL) 184 H 155 H Random Glucose Calcium Phosphorus Magnesium Total Bilirubin AST ALT Alkaline Phosphatase Total Protein Albumin Globulin Albumin/Globulin Ratio Procalcitonin Venous Blood Potassium Influenza Typ A,B (EIA) Negative for flu a/b Assessment & Plan (1) Pneumonia Status: Acute (2) Renal failure Status: Acute (3) CHF (congestive heart failure) Status: Acute (4) CKD (chronic kidney disease) requiring chronic dialysis Status: Acute (5) ESRD (end stage renal disease) Status: Acute - Assessment and Plan (Free Text) Assessment: cont vanco zosyn pending cultures of blood and sputum agree with broad spectrum rx de-escalate once isolates available- preferably monotherapy
--- NOTE | 2018-02-15 21:08 | CP.PCM.CON ---
History of Present Illness - History of Present Illness History of Present Illness: CC: SOB HPI: Patient is a 67 year old female with a past medical history of ESRD on hemodialysis (Sunday, Sunday, Sunday), COPD, CHF, diabetes, hypertension, macular degeneration, peripheral neuropathy, hyperlipidemia, and CVA, who presents to the ED with complaints of shortness of breath for two days. She originally went to [facility], and was transferred to [facility] as [facility] [place] not [place] center. Patient is a poor historian due to lethargy secondary to receiving pain medication in the ED. She states she felt short of breath two days ago after getting dialysis, and the dyspnea has persisted. She also reports having nausea, vomiting, and abdominal pain. Review of systems limited due to patient's lethargy secondary to medication given in ED. PMD: Dr. Gonzales Nephrology: Dr. Jacques PMHx: PER EMR- ESRD on hemodialysis (Sunday, Sunday, Sunday), COPD, CHF, diabetes, hypertension, macular degeneration, peripheral neuropathy, hyperlipidemia, and CVA SurgHx: patient denies; per EMR- pacemaker, left arm AV shunt, , right eye corneal surgery, right toe#5 amputation, cardiac cath FamHx: patient denies fam hx SocHx: denies tobacco, alcohol, and drug use; former 2pack per day smoker (did not answer when asked for how many year); lives alone; has a walker for ambulation but does not use. Allergies: NKDA Medications: per EMR- norvasc 10mg po daily, asa 81mg po daily, lipitor 10mg po hs, phoslo 667mg po tid, clonidine 0.1mg po bid, docusate 100mg po bid, pepcid 20mg po daily, gabapentin 100mg po tid, losartan 25mg po daily, metoprolol 25mg po bid, protonix 20mg po daily, renagel 800mg po tid. Present on Admission - Present on Admission Any Indicators Present on Admission: No Review of Systems - Review of Systems Review of Systems: lethargic secondary to medication; limited review of systems. - Constitutional Constitutional: absent: Headache - EENT Eyes: Other Visual Disturbances (blind bilaterally) - Cardiovascular Cardiovascular: Dyspnea. absent: Chest Pain - Respiratory Respiratory: Cough, Dyspnea. absent: Excessive Mucous Production - Gastrointestinal Gastrointestinal: Abdominal Pain, Vomiting. absent: Constipation, Diarrhea, Nausea - Genitourinary Genitourinary: Voiding Freq/Small Amts - Neurological Neurological: absent: Headaches - Endocrine Endocrine: absent: Palpitations Physical Exam - Constitutional Appears: No Acute Distress, Chronically Ill, Other (lethargic) - Eye Exam Eye Exam: absent: Normal appearance (right eye-cataract) - ENT Exam ENT Exam: Mucous Membranes Dry - Respiratory Exam Respiratory Exam: Decreased Breath Sounds, Rales, Rhonchi, Wheezes. absent: Clear to Auscultation Bilateral, Respiratory Distress - Cardiovascular Exam Cardiovascular Exam: REGULAR RHYTHM, +S1, +S2, Systolic Murmur - GI/Abdominal Exam GI & Abdominal Exam: Normal Bowel Sounds, Soft. absent: Distended, Firm, Tenderness - Extremities Exam Extremities exam: Positive for: pedal edema, pedal pulses present. Negative for : tenderness Additional comments: AV fistula-left arm - Neurological Exam Additional comments: lethargic; UE/LE 5/5 strength, CNII-XII intact - Psychiatric Exam Psychiatric exam: Flat Affect - Skin Skin Exam: Intact, Normal Color, Warm Past Patient History - Infectious Disease Hx of Infectious Diseases: None - Tetanus Immunizations Tetanus Immunization: Unknown - Past Medical History & Family History Past Medical History?: Yes - Past Social History Smoking Status: Former Smoker - CARDIAC Hx Congestive Heart Failure: Yes Hx Hypertension: Yes Hx Pacemaker: No Hx Peripheral Edema: Yes - PULMONARY Hx Chronic Obstructive Pulmonary Disease (COPD): Yes Hx Sleep Apnea: Yes - NEUROLOGICAL Hx Dementia: Yes - HEENT Hx HEENT Problems: Yes Hx Blind: Yes (legally blind) - RENAL Hx Chronic Kidney Disease: Yes - ENDOCRINE/METABOLIC Hx Endocrine Disorders: Yes Hx Diabetes Mellitus Type 1: Yes Hx Diabetes Mellitus Type 2: Yes - HEMATOLOGICAL/ONCOLOGICAL Hx Blood Disorders: No - INTEGUMENTARY Hx Dermatological Problems: No - MUSCULOSKELETAL/RHEUMATOLOGICAL Hx Musculoskeletal Disorders: No Hx Back Pain: Yes (fell in shop 2012) Hx Falls: Yes Hx Unsteady Gait: Yes (walker) - GASTROINTESTINAL Hx Gall Bladder Disease: Yes - GENITOURINARY/GYNECOLOGICAL Hx Genitourinary Disorders: Yes (ANURIA) - PSYCHIATRIC Hx Substance Use: No - SURGICAL HISTORY Hx Cholecystectomy: Yes - ANESTHESIA Hx Anesthesia: Yes Hx Anesthesia Reactions: No Hx Malignant Hyperthermia: No Meds Allergies/Adverse Reactions: Allergies Allergy/AdvReac Type Severity Reaction Status Date / Time No Known Allergies Allergy Verified 10/31/16 19:41 - Medications Medications: Current Medications Acetylcysteine (Acetylcysteine 20%) 4 ml INH ONCE ONE Stop: 02/16/18 06:31 Albuterol/Ipratropium (Duoneb 3 Mg/0.5 Mg (3 Ml) Ud) 3 ml INH ONCE ONE Stop: 02/16/18 06:31 Amlodipine Besylate (Norvasc) 10 mg PO DAILY [facility] Aspirin (Ecotrin) 81 mg PO DAILY [facility] Calcium Acetate (Phoslo) 667 mg PO TID [facility] Last Admin: 02/15/18 18:00 Dose: 667 mg Clonidine HCl (Catapres) 0.1 mg PO BID [facility] Docusate Sodium (Colace) 100 mg PO BID [facility] Last Admin: 02/15/18 18:00 Dose: 100 mg Gabapentin (Neurontin) 100 mg PO TID [facility] Last Admin: 02/15/18 18:00 Dose: 100 mg Heparin Sodium (Porcine) (Heparin) 2,000 units IVP MWF [facility] Heparin Sodium (Porcine) (Heparin) 5,000 units SC Q8 [facility] Ciprofloxacin (Cipro 400mg/200ml Dsw) 400 mg in 200 mls @ 133 mls/hr IVPB DAILY [facility] PRN Reason: Protocol Piperacillin Sod/Tazobactam (Sod 2.25 gm/ Sodium Chloride) 100 mls @ 200 mls/ hr IVPB Q8H [facility] PRN Reason: Protocol Last Admin: 02/15/18 18:50 Dose: 200 mls/hr Vancomycin HCl 1 gm/ Sodium (Chloride) 250 mls @ 166.7 mls/hr IVPB Q24H [facility] PRN Reason: Protocol Insulin Human Regular (Novolin R) 0 unit SC ACHS [facility] PRN Reason: Protocol Last Admin: 02/15/18 17:10 Dose: Not Given Losartan Potassium (Cozaar) 25 mg PO DAILY [facility] Pantoprazole Sodium (Protonix Ec Tab) 20 mg PO DAILY [facility] Rosuvastatin Calcium (Crestor) 5 mg PO HS [facility] Rosuvastatin Calcium (Crestor) 5 mg PO HS [facility] Sevelamer Carbonate (Renvela) 800 mg PO TID [facility] Last Admin: 02/15/18 18:00 Dose: 800 mg Tiotropium [place] (Spiriva) 18 mcg INH RQ24 [facility] Vitamin B Complex/Vit C/Folic Acid (Nephro-Lorena) 1 tab PO 0800 [facility] Results - Vital Signs Recent Vital Signs: Last Vital Signs Temp 98.3 F 02/15/18 17:10 Pulse 78 02/15/18 18:00 Resp 18 02/15/18 17:10 BP 151/50 H 02/15/18 17:10 Pulse Ox 95 02/15/18 17:10 - Labs Result Diagrams: 02/15/18 08:30 02/15/18 08:30 Labs: Laboratory Results - last 24 hr 02/15/18 02/15/18 02/15/18 08:30 08:30 08:30 WBC 7.5 RBC 3.30 L Hgb 9.0 L Hct 27.7 L MCV 84.1 MCH 27.3 MCHC 32.4 L RDW 14.5 Plt Count 164 MPV 9.1 Neut % (Auto) 74.3 Lymph % (Auto) 9.1 L [place] % (Auto) 16.4 H Eos % (Auto) 0.0 Baso % (Auto) 0.2 Neut # (Auto) 5.6 Lymph # (Auto) 0.7 L [place] # (Auto) 1.2 H Eos # (Auto) 0.0 Baso # (Auto) 0.0 Neutrophils % (Manual) 72 Lymphocytes % (Manual) 11 L Monocytes % (Manual) 17 H Platelet Estimate Normal Hypochromasia (manual) Slight Poikilocytosis (manual Slight Anisocytosis (manual) Slight PT 13.3 H INR 1.2 APTT 34 pO2 VBG pH VBG pCO2 VBG HCO3 VBG Total CO2 VBG O2 Sat (Calc) VBG Base Excess VBG Potassium Glucose Lactate Crit Value Called To Crit Value Called By Crit Value Read Back Blood Gas Notified Time Sodium 138 Potassium 6.5 H* Chloride 95 L Carbon Dioxide 34 H Anion Gap 16 BUN 35 H Creatinine 8.9 H* Est GFR ( Amer) 5 Est GFR (Non-Af Amer) 4 POC Glucose (mg/dL) Random Glucose 173 H Calcium 9.7 Phosphorus 0.9 L* Magnesium 2.2 Total Bilirubin 0.7 AST 31 ALT 28 Alkaline Phosphatase 61 Total Protein 7.3 Albumin 3.8 Globulin 3.5 Albumin/Globulin Ratio 1.1 Procalcitonin Venous Blood Potassium Influenza Typ A,B (EIA) 02/15/18 02/15/18 02/15/18 08:33 11:00 11:05 WBC RBC Hgb Hct MCV MCH MCHC RDW Plt Count MPV Neut % (Auto) Lymph % (Auto) [place] % (Auto) Eos % (Auto) Baso % (Auto) Neut # (Auto) Lymph # (Auto) [place] # (Auto) Eos # (Auto) Baso # (Auto) Neutrophils % (Manual) Lymphocytes % (Manual) Monocytes % (Manual) Platelet Estimate Hypochromasia (manual) Poikilocytosis (manual Anisocytosis (manual) PT INR APTT pO2 41 42 VBG pH 7.43 7.41 VBG pCO2 52 55 VBG HCO3 31.0 31.0 VBG Total CO2 36.1 H 36.6 H VBG O2 Sat (Calc) 82.0 H 83.7 H VBG Base Excess 8.5 H 8.4 H VBG Potassium 6.3 H* 6.8 H* Glucose 188 H 191 H Lactate 2.8 H 1.8 Crit Value Called To Dr jesus hernandez ([place]) Crit Value Called By Christo sommer laser set up operator Alden valderrama,kaitlynn Crit Value Read Back Y Y Blood Gas Notified Time 842 1122 Sodium 134.0 133.0 Potassium Chloride 100.0 100.0 Carbon Dioxide Anion Gap BUN Creatinine Est GFR ( Amer) Est GFR (Non-Af Amer) POC Glucose (mg/dL) Random Glucose Calcium Phosphorus Magnesium Total Bilirubin AST ALT Alkaline Phosphatase Total Protein Albumin Globulin Albumin/Globulin Ratio Procalcitonin 1.02 H Venous Blood Potassium 6.3 H* 6.8 H* Influenza Typ A,B (EIA) 02/15/18 02/15/18 02/15/18 11:26 13:30 16:42 WBC RBC Hgb Hct MCV MCH MCHC RDW Plt Count MPV Neut % (Auto) Lymph % (Auto) [place] % (Auto) Eos % (Auto) Baso % (Auto) Neut # (Auto) Lymph # (Auto) [place] # (Auto) Eos # (Auto) Baso # (Auto) Neutrophils % (Manual) Lymphocytes % (Manual) Monocytes % (Manual) Platelet Estimate Hypochromasia (manual) Poikilocytosis (manual Anisocytosis (manual) PT INR APTT pO2 VBG pH VBG pCO2 VBG HCO3 VBG Total CO2 VBG O2 Sat (Calc) VBG Base Excess VBG Potassium Glucose Lactate Crit Value Called To Crit Value Called By Crit Value Read Back Blood Gas Notified Time Sodium Potassium Chloride Carbon Dioxide Anion Gap BUN Creatinine Est GFR ( Amer) Est GFR (Non-Af Amer) POC Glucose (mg/dL) 184 H 155 H Random Glucose Calcium Phosphorus Magnesium Total Bilirubin AST ALT Alkaline Phosphatase Total Protein Albumin Globulin Albumin/Globulin Ratio Procalcitonin Venous Blood Potassium Influenza Typ A,B (EIA) Negative for flu a/b Assessment & Plan - Assessment and Plan (Free Text) Assessment: Bilateral Pneumonia: * Chest xray: diffuse b/l infiltrates; may represent edema/CHF however b/l pneumonia not excluded; b/l effusions * ID consulted, Dr. Cowan, help appreciated; Dr. Cowan already aware * Follow up: legionella, strep pneumo, mycoplasma, influenza * Nasal MRSA: f/u * Lactate: 2.8, repeat was 1.8 * Procalcitonin: 1.02 H * Blood cx: f/u * Urine cx via straight cath: f/u * Induced sputum cx: f/u * Medications: * Zosyn 2.25g IV Q8h at 6pm (active since 02/15/18) * Cipro 400mg IV daily at 10am (active 02/16/18) * Vanco 1gm IV daily at 10am (active 02/16/18) CHF Exacerbation, Diastolic (HFpEF) * Diastolic CHF * Echo in 08/19: concentric LVH, EF 65%, grade II diastolic dysfunction * Echo: f/u * Strict I/Os * HOB at 45 degree angle * Daily weights ESRD (MWF) * Nephrology consulted, Dr. Samuel- help appreciated; Dr. Samuel already aware and writtten orders for HD; * Schedule-MWF; dialysis via left arm AV fistula; patient scheduled for dialysis today * Medications: * Phoslo 667mg PO TID * Sevelamir 800mg PO TID DM * Accuchecks ACHS * A1c (2014) 6.1 * A1c: f/u * TSH/Free T4: f/u * Patient is not on any insulin or hypoglycemics * ISS * Hypoglycemic protocol HTN * Continue Norvasc 10mg PO HS, Losartan 25mg PO daily * Continue clonidine 0.1mg PO BID at 8am & 8pm * Hold metoprolol tartrate 25mg PO BID til after HD and reassess patient. * Continue to monitor COPD w/Sleep Apnea w/Bipap * Patient is not on any inhalers at home * Pulmonology consulted, Dr. Moe- help appreciated * Spiriva 18mcg daily * BiPAP 12/6 at FiO2 60% at bedtime HLD * Crestor 5mg PO HS * Lipid panel: f/u CVA affecting left side * PT/OT eval and treat and for [facility] evaluation * Continue aspirin 81mg PO daily and crestor 5mg PO HS PVD, neuropathy * Continue aspirin 81mg PO daily and crestor 5mg PO HS * Continue Gabapentin 100mg PO TID Anemia secondary to CKD * Monitor Hgb/Hct Prophylaxis * Protonix 20mg PO daily * Heparin 5000u sc Q8h * No SCDs due to LE neuropathy * Heart healthy 2gm Na renal low carb diet
[2018-02-16] MEDS: Piperacillin/Tazobact 2.25 GM in Sodium Chloride 100 ML IVPB SCH (02:24)
[2018-02-16] MEDS ORDERED: Acetylcysteine 20% Inhal Soln (4ml) INH ONE (06:30)
[2018-02-16] MEDS ORDERED: Albuterol-Ipratrop 3 mg / 0.5 (3 ml) UD INH ONE (06:30)
[2018-02-16] MEDS: (Novolin R) Insulin Human Regular 100 units/ml vial SC SCH ×4 (07:38→22:33)
[2018-02-16 07:46] LABS: BASO % 0.3 % (0.0-2.0); EOS # 0.1 K/uL (0.0-0.7); EOS % 1.8 % (0.0-4.0); HEMOGLOBIN 8.5 g/dL (11.0-16.0); LYMPH % 20.9 % (20.0-40.0); MEAN CELL VOLUME 84.6 fL (81.0-99.0); MEAN CORPUSCULAR HEMOGLOBIN 27.7 pg (27.0-31.0); MEAN CORPUSCULAR HGB CONC 32.8 g/dL (33.0-37.0); MEAN PLATELET VOLUME 9.5 fL (7.2-11.7); MONO # 0.7 K/uL (0.0-0.8); MONO % 13.7 % (0.0-10.0); NEUT # 3.2 K/uL (1.8-7.0); NEUT % 63.3 % (50.0-75.0); RBC 3.08 Mil/uL (3.80-5.20); RED CELL DISTRIBUTION WIDTH 14.6 % (11.5-14.5)
[2018-02-16 07:50] LABS: ALBUMIN 3.5 g/dL (3.5-5.0); ALT/SGPT 27 U/L (9-52); AST/SGOT 23 U/L (14-36); BLOOD UREA NITROGEN 25 mg/dL (7-17); CALCIUM 8.7 mg/dl (8.6-10.4); GFR AFRICAN-AMERICAN 8; GFR NON-AFRICAN AMERICAN 7; HDL CHOLESTEROL 33 mg/dL (30-70)
[2018-02-16 08:04] LABS: LDL CHOLESTEROL < 30 mg/dL (0-129)
--- NOTE | 2018-02-16 08:06 | CP.PCM.CON ---
Past Patient History - Infectious Disease Hx of Infectious Diseases: None - Tetanus Immunizations Tetanus Immunization: Unknown - Past Medical History & Family History Past Medical History?: Yes - Past Social History Smoking Status: Former Smoker - CARDIAC Hx Congestive Heart Failure: Yes Hx Hypertension: Yes Hx Pacemaker: No Hx Peripheral Edema: Yes - PULMONARY Hx Chronic Obstructive Pulmonary Disease (COPD): Yes Hx Sleep Apnea: Yes - NEUROLOGICAL Hx Dementia: Yes - HEENT Hx HEENT Problems: Yes Hx Blind: Yes (legally blind) - RENAL Hx Chronic Kidney Disease: Yes - ENDOCRINE/METABOLIC Hx Endocrine Disorders: Yes Hx Diabetes Mellitus Type 1: Yes Hx Diabetes Mellitus Type 2: Yes - HEMATOLOGICAL/ONCOLOGICAL Hx Blood Disorders: No - INTEGUMENTARY Hx Dermatological Problems: No - MUSCULOSKELETAL/RHEUMATOLOGICAL Hx Musculoskeletal Disorders: No Hx Back Pain: Yes (fell in shop rit2012) Hx Falls: Yes Hx Unsteady Gait: Yes (walker) - GASTROINTESTINAL Hx Gall Bladder Disease: Yes - GENITOURINARY/GYNECOLOGICAL Hx Genitourinary Disorders: Yes (ANURIA) - PSYCHIATRIC Hx Substance Use: No - SURGICAL HISTORY Hx Cholecystectomy: Yes - ANESTHESIA Hx Anesthesia: Yes Hx Anesthesia Reactions: No Hx Malignant Hyperthermia: No Meds Allergies/Adverse Reactions: Allergies Allergy/AdvReac Type Severity Reaction Status Date / Time No Known Allergies Allergy Verified 10/31/16 19:41 - Medications Medications: Current Medications Amlodipine Besylate (Norvasc) 10 mg PO DAILY [facility] Aspirin (Ecotrin) 81 mg PO DAILY [facility] Calcium Acetate (Phoslo) 667 mg PO TID [facility] Last Admin: 02/15/18 18:00 Dose: 667 mg Clonidine HCl (Catapres) 0.1 mg PO BID [facility] Last Admin: 02/15/18 21:28 Dose: 0.1 mg Docusate Sodium (Colace) 100 mg PO BID [facility] Last Admin: 02/15/18 18:00 Dose: 100 mg Epoetin Ricardo (Procrit) 4,000 unit IV [facility] Gabapentin (Neurontin) 100 mg PO TID [facility] Last Admin: 02/15/18 18:00 Dose: 100 mg Heparin Sodium (Porcine) (Heparin) 2,000 units IVP MWF [facility] Heparin Sodium (Porcine) (Heparin) 5,000 units SC Q8 [facility] Last Admin: 02/16/18 06:17 Dose: Not Given Ciprofloxacin (Cipro 400mg/200ml Dsw) 400 mg in 200 mls @ 133 mls/hr IVPB DAILY [facility] PRN Reason: Protocol Vancomycin HCl 1 gm/ Sodium (Chloride) 200 mls @ 166.7 mls/hr IVPB Q24H [facility] PRN Reason: Protocol Piperacillin Sod/Tazobactam (Sod 2.25 gm/ Dextrose) 50 mls @ 200 mls/hr IVPB Q8H [facility] PRN Reason: Protocol Insulin Human Regular (Novolin R) 0 unit SC ACHS [facility] PRN Reason: Protocol Last Admin: 02/16/18 07:38 Dose: Not Given Losartan Potassium (Cozaar) 25 mg PO DAILY [facility] Pantoprazole Sodium (Protonix Ec Tab) 20 mg PO DAILY [facility] Rosuvastatin Calcium (Crestor) 5 mg PO HS [facility] Last Admin: 02/15/18 21:28 Dose: 5 mg Sevelamer Carbonate (Renvela) 800 mg PO TID [facility] Last Admin: 02/15/18 18:00 Dose: 800 mg Tiotropium [place] (Spiriva) 18 mcg INH RQ24 [facility] Vitamin B Complex/Vit C/Folic Acid (Nephro-Lorena) 1 tab PO 0800 [facility] Results - Vital Signs Recent Vital Signs: Last Vital Signs Temp 99.4 F 02/16/18 07:37 Pulse 68 02/16/18 07:37 Resp 20 02/16/18 07:37 BP 152/69 H 02/16/18 07:37 Pulse Ox 100 02/16/18 07:37 - Labs Result Diagrams: 02/16/18 07:21 02/16/18 07:21 Labs: Laboratory Results - last 24 hr 02/15/18 02/15/18 02/15/18 08:30 08:30 08:30 WBC 7.5 RBC 3.30 L Hgb 9.0 L Hct 27.7 L MCV 84.1 MCH 27.3 MCHC 32.4 L RDW 14.5 Plt Count 164 MPV 9.1 Neut % (Auto) 74.3 Lymph % (Auto) 9.1 L [place] % (Auto) 16.4 H Eos % (Auto) 0.0 Baso % (Auto) 0.2 Neut # (Auto) 5.6 Lymph # (Auto) 0.7 L [place] # (Auto) 1.2 H Eos # (Auto) 0.0 Baso # (Auto) 0.0 Neutrophils % (Manual) 72 Lymphocytes % (Manual) 11 L Monocytes % (Manual) 17 H Platelet Estimate Normal Hypochromasia (manual) Slight Poikilocytosis (manual Slight Anisocytosis (manual) Slight PT 13.3 H INR 1.2 APTT 34 pO2 VBG pH VBG pCO2 VBG HCO3 VBG Total CO2 VBG O2 Sat (Calc) VBG Base Excess VBG Potassium Glucose Lactate Crit Value Called To Crit Value Called By Crit Value Read Back Blood Gas Notified Time Sodium 138 Potassium 6.5 H* Chloride 95 L Carbon Dioxide 34 H Anion Gap 16 BUN 35 H Creatinine 8.9 H* Est GFR ( Amer) 5 Est GFR (Non-Af Amer) 4 POC Glucose (mg/dL) Random Glucose 173 H Calcium 9.7 Phosphorus 0.9 L* Magnesium 2.2 Total Bilirubin 0.7 AST 31 ALT 28 Alkaline Phosphatase 61 Total Protein 7.3 Albumin 3.8 Globulin 3.5 Albumin/Globulin Ratio 1.1 Triglycerides Cholesterol LDL Cholesterol Direct HDL Cholesterol Procalcitonin Venous Blood Potassium Influenza Typ A,B (EIA) 02/15/18 02/15/18 02/15/18 08:33 11:00 11:05 WBC RBC Hgb Hct MCV MCH MCHC RDW Plt Count MPV Neut % (Auto) Lymph % (Auto) [place] % (Auto) Eos % (Auto) Baso % (Auto) Neut # (Auto) Lymph # (Auto) [place] # (Auto) Eos # (Auto) Baso # (Auto) Neutrophils % (Manual) Lymphocytes % (Manual) Monocytes % (Manual) Platelet Estimate Hypochromasia (manual) Poikilocytosis (manual Anisocytosis (manual) PT INR APTT pO2 41 42 VBG pH 7.43 7.41 VBG pCO2 52 55 VBG HCO3 31.0 31.0 VBG Total CO2 36.1 H 36.6 H VBG O2 Sat (Calc) 82.0 H 83.7 H VBG Base Excess 8.5 H 8.4 H VBG Potassium 6.3 H* 6.8 H* Glucose 188 H 191 H Lactate 2.8 H 1.8 Crit Value Called To Dr jesus hernandez ([place]) Crit Value Called By Christo [facility] manager Alden valderrama,kaitlynn Crit Value Read Back Y Y Blood Gas Notified Time 842 1122 Sodium 134.0 133.0 Potassium Chloride 100.0 100.0 Carbon Dioxide Anion Gap BUN Creatinine Est GFR ( Amer) Est GFR (Non-Af Amer) POC Glucose (mg/dL) Random Glucose Calcium Phosphorus Magnesium Total Bilirubin AST ALT Alkaline Phosphatase Total Protein Albumin Globulin Albumin/Globulin Ratio Triglycerides Cholesterol LDL Cholesterol Direct HDL Cholesterol Procalcitonin 1.02 H Venous Blood Potassium 6.3 H* 6.8 H* Influenza Typ A,B (EIA) 02/15/18 02/15/18 02/15/18 11:26 13:30 16:42 WBC RBC Hgb Hct MCV MCH MCHC RDW Plt Count MPV Neut % (Auto) Lymph % (Auto) [place] % (Auto) Eos % (Auto) Baso % (Auto) Neut # (Auto) Lymph # (Auto) [place] # (Auto) Eos # (Auto) Baso # (Auto) Neutrophils % (Manual) Lymphocytes % (Manual) Monocytes % (Manual) Platelet Estimate Hypochromasia (manual) Poikilocytosis (manual Anisocytosis (manual) PT INR APTT pO2 VBG pH VBG pCO2 VBG HCO3 VBG Total CO2 VBG O2 Sat (Calc) VBG Base Excess VBG Potassium Glucose Lactate Crit Value Called To Crit Value Called By Crit Value Read Back Blood Gas Notified Time Sodium Potassium Chloride Carbon Dioxide Anion Gap BUN Creatinine Est GFR ( Amer) Est GFR (Non-Af Amer) POC Glucose (mg/dL) 184 H 155 H Random Glucose Calcium Phosphorus Magnesium Total Bilirubin AST ALT Alkaline Phosphatase Total Protein Albumin Globulin Albumin/Globulin Ratio Triglycerides Cholesterol LDL Cholesterol Direct HDL Cholesterol Procalcitonin Venous Blood Potassium Influenza Typ A,B (EIA) Negative for flu a/b 02/15/18 02/16/18 02/16/18 21:44 06:48 07:21 WBC 5.0 RBC 3.08 L Hgb 8.5 L Hct 26.0 L MCV 84.6 MCH 27.7 MCHC 32.8 L RDW 14.6 H Plt Count 142 MPV 9.5 Neut % (Auto) 63.3 Lymph % (Auto) 20.9 [place] % (Auto) 13.7 H Eos % (Auto) 1.8 Baso % (Auto) 0.3 Neut # (Auto) 3.2 Lymph # (Auto) 1.0 [place] # (Auto) 0.7 Eos # (Auto) 0.1 Baso # (Auto) 0.0 Neutrophils % (Manual) Lymphocytes % (Manual) Monocytes % (Manual) Platelet Estimate Hypochromasia (manual) Poikilocytosis (manual Anisocytosis (manual) PT INR APTT pO2 VBG pH VBG pCO2 VBG HCO3 VBG Total CO2 VBG O2 Sat (Calc) VBG Base Excess VBG Potassium Glucose Lactate Crit Value Called To Crit Value Called By Crit Value Read Back Blood Gas Notified Time Sodium Potassium Chloride Carbon Dioxide Anion Gap BUN Creatinine Est GFR ( Amer) Est GFR (Non-Af Amer) POC Glucose (mg/dL) 161 H 132 H Random Glucose Calcium Phosphorus Magnesium Total Bilirubin AST ALT Alkaline Phosphatase Total Protein Albumin Globulin Albumin/Globulin Ratio Triglycerides Cholesterol LDL Cholesterol Direct HDL Cholesterol Procalcitonin Venous Blood Potassium Influenza Typ A,B (EIA) 02/16/18 07:21 WBC RBC Hgb Hct MCV MCH MCHC RDW Plt Count MPV Neut % (Auto) Lymph % (Auto) [place] % (Auto) Eos % (Auto) Baso % (Auto) Neut # (Auto) Lymph # (Auto) [place] # (Auto) Eos # (Auto) Baso # (Auto) Neutrophils % (Manual) Lymphocytes % (Manual) Monocytes % (Manual) Platelet Estimate Hypochromasia (manual) Poikilocytosis (manual Anisocytosis (manual) PT INR APTT pO2 VBG pH VBG pCO2 VBG HCO3 VBG Total CO2 VBG O2 Sat (Calc) VBG Base Excess VBG Potassium Glucose Lactate Crit Value Called To Crit Value Called By Crit Value Read Back Blood Gas Notified Time Sodium 138 Potassium 6.0 H Chloride 96 L Carbon Dioxide 36 H Anion Gap 13 BUN 25 H Creatinine 6.2 H Est GFR ( Amer) 8 Est GFR (Non-Af Amer) 7 POC Glucose (mg/dL) Random Glucose 129 H Calcium 8.7 Phosphorus Magnesium Total Bilirubin 0.7 AST 23 ALT 27 Alkaline Phosphatase 55 Total Protein 7.0 Albumin 3.5 Globulin 3.6 Albumin/Globulin Ratio 1.0 Triglycerides 59 Cholesterol 87 LDL Cholesterol Direct < 30 HDL Cholesterol 33 Procalcitonin Venous Blood Potassium Influenza Typ A,B (EIA)
[2018-02-16 08:09] LABS: T4 5.54 ug/dL (5.5-11.0)
[2018-02-16] MEDS: Tiotropium 18 mcg Cap For Inhalation INH SCH (08:09)
[2018-02-16] MEDS: Pantoprazole 20 mg EC Tab PO SCH (08:11)
--- NOTE | 2018-02-16 08:38 | CP.PCM.PN ---
<Polo Odonnell - Last Filed: 02/16/18 20:01> Subjective - Date & Time of Evaluation Date of Evaluation: 02/16/18 Time of Evaluation: 08:30 - Subjective Subjective: PGY-[address] Randall's service: Pt seen and examined at bedside. Nursing reports no acute events overnight. Patient found at hemodialysis unit. Reports she is "breathing better today" and denies cough overnight. No chest pain, palpitations, abd pain, N/V. Objective - Vital Signs/Intake and Output Vital Signs (last 24 hours): Temp Pulse Resp BP Pulse Ox 99.4 F 64 20 152/69 H 100 02/16/18 07:37 02/16/18 08:00 02/16/18 07:37 02/16/18 07:37 02/16/18 07:37 - Medications Medications: Current Medications Amlodipine Besylate (Norvasc) 10 mg PO DAILY [facility] Aspirin (Ecotrin) 81 mg PO DAILY [facility] Calcium Acetate (Phoslo) 667 mg PO TID [facility] Last Admin: 02/15/18 18:00 Dose: 667 mg Clonidine HCl (Catapres) 0.1 mg PO BID [facility] Last Admin: 02/15/18 21:28 Dose: 0.1 mg Docusate Sodium (Colace) 100 mg PO BID [facility] Last Admin: 02/15/18 18:00 Dose: 100 mg Epoetin Ricardo (Procrit) 4,000 unit IV [facility] Gabapentin (Neurontin) 100 mg PO TID [facility] Last Admin: 02/15/18 18:00 Dose: 100 mg Heparin Sodium (Porcine) (Heparin) 2,000 units IVP [facility] Heparin Sodium (Porcine) (Heparin) 5,000 units SC Q8 [facility] Last Admin: 02/16/18 06:17 Dose: Not Given Ciprofloxacin (Cipro 400mg/200ml Dsw) 400 mg in 200 mls @ 133 mls/hr IVPB DAILY [facility] PRN Reason: Protocol Vancomycin HCl 1 gm/ Sodium (Chloride) 200 mls @ 166.7 mls/hr IVPB Q24H [facility] PRN Reason: Protocol Piperacillin Sod/Tazobactam (Sod 2.25 gm/ Dextrose) 50 mls @ 200 mls/hr IVPB Q8H [facility] PRN Reason: Protocol Insulin Human Regular (Novolin R) 0 unit SC ACHS [facility] PRN Reason: Protocol Last Admin: 02/16/18 07:38 Dose: Not Given Losartan Potassium (Cozaar) 25 mg PO DAILY [facility] Pantoprazole Sodium (Protonix Ec Tab) 20 mg PO DAILY [facility] Rosuvastatin Calcium (Crestor) 5 mg PO HS [facility] Last Admin: 02/15/18 21:28 Dose: 5 mg Sevelamer Carbonate (Renvela) 800 mg PO TID [facility] Last Admin: 02/15/18 18:00 Dose: 800 mg Tiotropium [place] (Spiriva) 18 mcg INH RQ24 [facility] Last Admin: 02/16/18 08:09 Dose: 18 mcg Vitamin B Complex/Vit C/Folic Acid (Nephro-Lorena) 1 tab PO 0800 [facility] - Labs Labs: 02/16/18 07:21 02/16/18 07:21 PT 13.3 SECONDS (9.7-12.2) H 02/15/18 08:30 INR 1.2 02/15/18 08:30 APTT 34 SECONDS (21-34) 02/15/18 08:30 - Additional Findings Additional findings: - Constitutional Appears: No Acute Distress, Chronically Ill, Other (lethargic) - Eye Exam Eye Exam: absent: Normal appearance (right eye-cataract) - ENT Exam ENT Exam: Mucous Membranes Dry - Respiratory Exam Respiratory Exam: Decreased Breath Sounds, Inspiratory Rales, Rhonchi, Wheezes. absent: Clear to Auscultation Bilateral, Respiratory Distress - Cardiovascular Exam Cardiovascular Exam: REGULAR RHYTHM, +S1, +S2, Systolic Murmur - GI/Abdominal Exam GI & Abdominal Exam: Normal Bowel Sounds, Soft. absent: Distended, Firm, Tenderness - Extremities Exam Extremities exam: Positive for: pedal edema, pedal pulses present. Negative for : tenderness Additional comments: AV fistula-left arm; + thrill - Neurological Exam Additional comments: lethargic; UE/LE 5/5 strength, CNII-XII intact - Psychiatric Exam Psychiatric exam: Flat Affect - Skin Skin Exam: Intact, Normal Color, Warm Assessment and Plan - Assessment and Plan (Free Text) Plan: Sepsis, Severe Resolved Source: ? Pneumonia Criteria Lactate: 2.8, repeat was 1.8 Elevated Procalcitonin 1.0 see below for Meds Bilateral Pneumonia: * Chest xray: diffuse b/l infiltrates; may represent edema/CHF however b/l pneumonia not excluded; b/l effusions * ID consulted, Dr. Cowan, help appreciated * Follow up: legionella, strep pneumo, mycoplasma, influenza * Nasal MRSA: f/u * Lactate: 2.8, repeat was 1.8 * Procalcitonin: 1.02 H * Blood cx: f/u * Urine cx via straight cath: f/u * Induced sputum cx: f/u * Medications: * Zosyn 2.25g IV Q8h at 6pm (active since 02/15/18) * Cipro 400mg IV daily at 10am (active 02/16/18) * Vanco 1gm IV daily at 10am (active 02/16/18) CHF Exacerbation, Diastolic (HFpEF) * Cardiology consulted, Dr. gunn, help appreciated * Echo in 08/19: concentric LVH, EF 65%, grade II diastolic dysfunction * Echo: f/u * Strict I/Os * HOB at 45 degree angle * Daily weights ESRD (MWF) * Nephrology consulted, Dr. Samuel- help appreciated; Dr. Samuel already aware and writtten orders for HD; * Schedule-MWF; dialysis via left arm AV fistula; patient scheduled for dialysis today * Medications: * Phoslo 667mg PO TID * Sevelamir 800mg PO TID DM * Accuchecks ACHS * A1c (2014) 6.1 * A1c: f/u * TSH/Free T4: WNL * Patient is not on any insulin or hypoglycemics * ISS * Hypoglycemic protocol HTN * Continue Norvasc 10mg PO HS, Losartan 25mg PO daily * Continue clonidine 0.1mg PO BID at 8am & 8pm * Hold metoprolol tartrate 25mg PO BID til after HD and reassess patient. * Continue to monitor COPD w/Sleep Apnea w/Bipap * Patient is not on any inhalers at home * Pulmonology consulted, Dr. Moe- help appreciated * Spiriva 18mcg daily * BiPAP / at FiO2 60% at bedtime HLD * Crestor 5mg PO HS * Lipid panel: T chol 87, LDL < 30, HDL 33, TG 59 CVA affecting left side * PT/OT eval and treat and for [facility] evaluation * Continue aspirin 81mg PO daily and crestor 5mg PO HS PVD, neuropathy * Continue aspirin 81mg PO daily and crestor 5mg PO HS * Continue Gabapentin 100mg PO TID Anemia of chronic disease Etiology: Secondary to CKD Hgb stable Monitor Hyperkalemia K 6.0 on AM labs - No chest pain, EKG changes Pt for dialysis today, f/u AM labs Hypophosphotemia Phos 0.9 on admission Pt on phos-lo f/u Dr. Samuel reccs Hx Legally blind Prophylaxis * Protonix 20mg PO daily * Heparin 5000u sc Q8h * No SCDs due to LE neuropathy * Heart healthy 2gm Na renal low carb diet Polo Odonnell PGY-2 D/w Dr. Randall <Ja Randall - Last Filed: 02/17/18 18:09> Objective - Vital Signs/Intake and Output Vital Signs (last 24 hours): Temp Pulse Resp BP Pulse Ox 98.2 F 58 L 18 159/69 H 99 02/17/18 15:55 02/17/18 15:55 02/17/18 15:55 02/17/18 17:48 02/17/18 15:55 Intake and Output: 02/17/18 02/17/18 06:59 18:59 Intake Total 675 480 Output Total 50 Balance 675 430 - Medications Medications: Current Medications Amlodipine Besylate (Norvasc) 10 mg PO DAILY [facility] Last Admin: 02/17/18 09:39 Dose: 10 mg Aspirin (Ecotrin) 81 mg PO DAILY [facility] Last Admin: 02/17/18 09:39 Dose: 81 mg Calcium Acetate (Phoslo) 667 mg PO TID [facility] Last Admin: 02/17/18 18:02 Dose: 667 mg Clonidine HCl (Catapres) 0.1 mg PO BID [facility] Last Admin: 02/17/18 17:48 Dose: 0.1 mg Dextrose (Dextrose 50% Inj) 0 ml IV STAT PRN; Protocol PRN Reason: Hypoglycemia Protocol Dextrose (Glutose 15) 0 gm PO ONCE PRN; Protocol PRN Reason: Hypoglycemia Protocol Docusate Sodium (Colace) 100 mg PO BID [facility] Last Admin: 02/17/18 17:48 Dose: 100 mg Epoetin Ricardo (Procrit) 8,000 unit IV MWF [facility] Gabapentin (Neurontin) 100 mg PO TID [facility] Last Admin: 02/17/18 17:48 Dose: 100 mg Glimepiride (Amaryl) 2 mg PO DAILY [facility] Glucagon (Glucagen Diagnostic Kit) 0 mg IM STAT PRN; Protocol PRN Reason: Hypoglycemia Protocol Heparin Sodium (Porcine) (Heparin) 2,000 units IVP MWF [facility] Ciprofloxacin (Cipro 400mg/200ml Dsw) 400 mg in 200 mls @ 133 mls/hr IVPB DAILY [facility] PRN Reason: Protocol Last Admin: 02/17/18 09:37 Dose: 133 mls/hr Vancomycin HCl 1 gm/ Sodium (Chloride) 200 mls @ 166.7 mls/hr IVPB Q24H [facility] PRN Reason: Protocol Last Admin: 02/17/18 11:27 Dose: 166.7 mls/hr Piperacillin Sod/Tazobactam (Sod 2.25 gm/ Dextrose) 50 mls @ 200 mls/hr IVPB Q8H [facility] PRN Reason: Protocol Last Admin: 02/17/18 17:49 Dose: 200 mls/hr Dextrose (Dextrose 5% In Water 1000 Ml) 1,000 mls @ 0 mls/hr IV .Q0M PRN; Protocol; Per Protocol PRN Reason: Hypoglycemia Protocol Insulin Human Regular (Novolin R) 0 unit SC ACHS [facility] PRN Reason: Protocol Last Admin: 02/17/18 17:57 Dose: Not Given Metoprolol Tartrate (Lopressor) 25 mg PO BID [facility] Last Admin: 02/17/18 17:48 Dose: 25 mg Pantoprazole Sodium (Protonix Ec Tab) 20 mg PO DAILY [facility] Last Admin: 02/17/18 09:39 Dose: 20 mg Rosuvastatin Calcium (Crestor) 5 mg PO HS [facility] Last Admin: 02/16/18 21:39 Dose: 5 mg Saccharomyces Boulardii (Florastor) 250 mg PO BID [facility] Last Admin: 02/17/18 17:48 Dose: 250 mg Sevelamer Carbonate (Renvela) 800 mg PO TID [facility] Last Admin: 02/17/18 17:48 Dose: 800 mg Tiotropium [place] (Spiriva) 18 mcg INH RQ24 [facility] Last Admin: 02/17/18 07:38 Dose: 18 mcg Vitamin B Complex/Vit C/Folic Acid (Nephro-Lorena) 1 tab PO 0800 [facility] Last Admin: 02/17/18 08:11 Dose: 1 tab - Labs Labs: 02/17/18 05:48 02/17/18 05:48 PT 13.3 SECONDS (9.7-12.2) H 02/15/18 08:30 INR 1.2 02/15/18 08:30 APTT 34 SECONDS (21-34) 02/15/18 08:30 Attending/Attestation - Attestation I have personally seen and examined this patient.: Yes I have fully participated in the care of the patient.: Yes I have reviewed all pertinent clinical information, including history, physical exam and plan: Yes
--- NOTE | 2018-02-16 09:18 | CP.PCM.PN ---
Subjective - Date & Time of Evaluation Date of Evaluation: 02/16/18 Time of Evaluation: 09:18 - Subjective Subjective: Nephrology Consultation Note: Assessment: stable Pneumonia, fluid overload Hyperkalemia Diabetic chronic Kidney Disease (E11.22) Hypertensive Chronic Kidney Disease (I12.0) End stage renal disease (N18.6) dependence on hemodialysis (Z99.2) (MWF) via AVF Anemia (D64.9), Hyperphosphatemia (E83.39), Secondary Hyperparathyroidism (E21.1 ), HTN (I12.0) chronic Hep C Plan: will plan for dialysis today extra as ordered then next HD per MWF schedule. Continue with Nephrovite 1 tab/day. PRBC as needed for anemia. On LOUISA as epogen with HD as last Hb 9 Continue with phos binders home dose check phos level BP control with meds as ordered. continue with home meds. she is on RAAS blockade with losartan, hold due to hyperkalemia. Glycemic control, Dialysis consistent diet Further work up/management as per primary team Dose meds/antibiotics for ESRD status. Avoid fleets enema/magnesium based laxatives Thanks for allowing me to participate in care of your patient. Will follow patient with you. Please call if any Qs. d/w family and team Dr Vic Samuel Office: [phone] Chief Complaint; SOB reason for consult; ESRD HPI: Pt is a 67 F with hx of ESRD on hemodialysis (MWF) via AVF, last dialysis wed x 4 years @ [place], chronic anemia, hyperphosphatemia, secondary hyperparathyroidism, Diabetes Mellitus, hypertension, chronic Hep C, legally blind, neuropathy presented with complaints of SOB and fever x 1 day and being admitted for pneumonia. renal consult for ESRD management. pt says she felt fine 1 day before. felt cold with chills at home with SOB x 1 day. ROS: She feels better now Denies chest pain, palpitation, better shortness of breath, denies leg swelling. makes small amount of urine has cough. all other negative Physical Examination: General Appearance: Comfortable, in no acute respiratory distress, co-operative . Vitals reviewed and noted as below Head; Atraumatic, normocephalic ENT: no ulcers no thrush. Tongue is midline. Oropharynx: no rash or ulcers. EYES: she is blind Neck; supple no lymphadenopathy, no thyromegaly or bruit Lungs: Normal respiratory rate/effort. Breath sounds bilateral decreased at bases with crackles Heart: Normal rate. s1s2 normal. No rub or gallop. Extremities: no edema. No varicose veins Neurological: Patient is alert, awake and oriented to person, place and time. No focal deficit. Strength bilateral appropriate and equal Skin: Warm and dry. Normal turgor. No rash. Palpitation: Normal elasticity for age Abdomen: Abdomen is soft. Bowel sounds +. There is no abdominal tenderness, no guarding/rigidity or organomegaly Psych: normal insight and normal affect/mood MSK: no joint tenderness or swelling. Digits and nails normal, no deformity : kidney or bladder not palpable Access: AVF LUE with thrill and bruit Labs/imaging reviewed. Past medical history, past surgical history, family history, social history, allergy reviewed and noted as below Family Hx: no hx of CKD. Non contributory normal LV function: echo aug 2017 Objective - Vital Signs/Intake and Output Vital Signs (last 24 hours): Temp Pulse Resp BP Pulse Ox 99.4 F 64 20 152/69 H 100 02/16/18 07:37 02/16/18 08:00 02/16/18 07:37 02/16/18 07:37 02/16/18 07:37 - Medications Medications: Current Medications Amlodipine Besylate (Norvasc) 10 mg PO DAILY [facility] Aspirin (Ecotrin) 81 mg PO DAILY [facility] Calcium Acetate (Phoslo) 667 mg PO TID [facility] Last Admin: 02/15/18 18:00 Dose: 667 mg Clonidine HCl (Catapres) 0.1 mg PO BID [facility] Last Admin: 02/15/18 21:28 Dose: 0.1 mg Docusate Sodium (Colace) 100 mg PO BID [facility] Last Admin: 02/15/18 18:00 Dose: 100 mg Epoetin Ricardo (Procrit) 4,000 unit IV [facility] Epoetin Ricardo (Procrit) 4,000 unit IV ONCE ONE Stop: 02/16/18 09:17 Gabapentin (Neurontin) 100 mg PO TID [facility] Last Admin: 02/15/18 18:00 Dose: 100 mg Heparin Sodium (Porcine) (Heparin) 2,000 units IVP [facility] Heparin Sodium (Porcine) (Heparin) 5,000 units SC Q8 [facility] Last Admin: 02/16/18 06:17 Dose: Not Given Heparin Sodium (Porcine) (Heparin) 2,000 units IVP ONCE ONE Stop: 02/16/18 09:18 Ciprofloxacin (Cipro 400mg/200ml Dsw) 400 mg in 200 mls @ 133 mls/hr IVPB DAILY [facility] PRN Reason: Protocol Vancomycin HCl 1 gm/ Sodium (Chloride) 200 mls @ 166.7 mls/hr IVPB Q24H [facility] PRN Reason: Protocol Piperacillin Sod/Tazobactam (Sod 2.25 gm/ Dextrose) 50 mls @ 200 mls/hr IVPB Q8H [facility] PRN Reason: Protocol Insulin Human Regular (Novolin R) 0 unit SC ACHS [facility] PRN Reason: Protocol Last Admin: 02/16/18 07:38 Dose: Not Given Losartan Potassium (Cozaar) 25 mg PO DAILY [facility] Pantoprazole Sodium (Protonix Ec Tab) 20 mg PO DAILY [facility] Rosuvastatin Calcium (Crestor) 5 mg PO HS [facility] Last Admin: 02/15/18 21:28 Dose: 5 mg Sevelamer Carbonate (Renvela) 800 mg PO TID [facility] Last Admin: 02/15/18 18:00 Dose: 800 mg Tiotropium [place] (Spiriva) 18 mcg INH RQ24 [facility] Last Admin: 02/16/18 08:09 Dose: 18 mcg Vitamin B Complex/Vit C/Folic Acid (Nephro-Lorena) 1 tab PO 0800 [facility] - Labs Labs: 02/16/18 07:21 02/16/18 07:21 PT 13.3 SECONDS (9.7-12.2) H 02/15/18 08:30 INR 1.2 02/15/18 08:30 APTT 34 SECONDS (21-34) 02/15/18 08:30
[2018-02-16] MEDS: Multivitamin Vitamin B Complex (Nephro-Vite) Tab PO SCH ×2 (09:24→10:44)
[2018-02-16] MEDS ORDERED: Epoetin Alfa Dialysis 2000 U/ML Inj IV ONE ×2 (09:30→16:00)
[2018-02-16] MEDS: WATER IVPB SCH ×2 (10:00→20:14)
[2018-02-16] MEDS: DEXTROSE 5% IVPB SCH ×2 (10:00→20:14)
[2018-02-16] MEDS: TAZOBACT IVPB SCH ×2 (10:00→20:14)
[2018-02-16] MEDS: PIPERACILLIN IVPB SCH ×2 (10:00→20:14)
[2018-02-16] MEDS ORDERED: Epoetin Alfa Dialysis 40000 UNIT/ml Inj IV ONE (10:00)
[2018-02-16] MEDS: Ciprofloxacin 400mg/200ml D5W 400 MG/200 ML BAG IVPB SCH (10:45)
[2018-02-16] MEDS: Vancomycin 1 GM in Sodium Chloride 0.9% 200 ML IVPB SCH ×2 (12:46→18:41)
--- NOTE | 2018-02-16 19:28 | CARD ---
APPROVED REPORT EXAM: Two-dimensional and M-mode echocardiogram with Doppler and color Doppler. Other Information Quality : FairRhythm : NSR INDICATION Dyspnea Congestive Heart Failure COPD TDS,PT ON BED,NOT ABLE TO TURN RISK FACTORS Obesity M-Mode DIMENSIONS RVDd2.93 (2.1-3.2cm)Left Atrium (MM)4.40 (2.5-4.0cm) IVSd1.13 (0.7-1.1cm)Aortic Root3.15 (2.2-3.7cm) LVDd5.62 (4.0-5.6cm)Aortic Cusp Exc.2.13 (1.5-2.0cm) PWd1.09 (0.7-1.1cm)FS (%) 53 % LVDs2.62 (2.0-3.8cm)LVEF (%)84 (>50%) Mitral Valve MV E Yasggywj32.5cm/sMV A Zzfeivqf62.9cm/sE/A ratio0.9 TDI E/Lateral E'0.0E/Medial E'0.0 Tricuspid Valve TR Peak [id number]/sTR Peak Gr.[id number] LEFT VENTRICLE The left ventricle is upper normal size. There is borderline concentric left ventricular hypertrophy. The Ejection Fraction is 65-70%. There is normal LV segmental wall motion. The left ventricular diastolic function is normal. RIGHT VENTRICLE The right ventricle is normal size. ATRIA The left atrium is mildly dilated. The right atrium size is normal. The interatrial septum is intact with no evidence for an atrial septal defect. AORTIC VALVE The aortic valve is trileaflet. The aortic valve is mildly sclerotic. There is trace aortic regurgitation. MITRAL VALVE The mitral valve is normal in structure. There is no mitral valve regurgitation noted. TRICUSPID VALVE The tricuspid valve is normal in structure. There is trace to mild tricuspid regurgitation. Right ventricular systolic pressure is estimated at 55 mmHg. There is moderate pulmonary hypertension. PULMONIC VALVE The pulmonary valve is normal in structure. There is mild pulmonic valvular regurgitation. GREAT VESSELS The aortic root is normal size. The aortic root displays mild sclerocalcific changes of the aortic root. ivc appears mildly dilated. PERICARDIAL EFFUSION There is no pericardial effusion. <Conclusion> poor window. tds. The left ventricle is upper normal size. There is borderline concentric left ventricular hypertrophy. The Ejection Fraction is 65-70%. The left ventricular diastolic function is normal. The left atrium is mildly dilated. There is trace to mild tricuspid regurgitation. Right ventricular systolic pressure is estimated at 55 mmHg. There is moderate pulmonary hypertension. The aortic root is normal size. The aortic root displays mild sclerocalcific changes of the aortic root. ivc appears mildly dilated.
--- NOTE | 2018-02-16 19:44 | CARD ---
APPROVED REPORT EKG Measurement Heart [id number] <Conclusion> Normal sinus rhythm Normal ECG
[2018-02-17] MEDS: TAZOBACT IVPB SCH ×3 (03:00→17:49)
[2018-02-17] MEDS: DEXTROSE 5% IVPB SCH ×3 (03:00→17:49)
[2018-02-17] MEDS: WATER IVPB SCH ×3 (03:00→17:49)
[2018-02-17] MEDS: PIPERACILLIN IVPB SCH ×3 (03:00→17:49)
[2018-02-17 05:51] LABS: BASO % 0.3 % (0.0-2.0); EOS # 0.2 K/uL (0.0-0.7); HEMOGLOBIN 8.9 g/dL (11.0-16.0); LYMPH # 0.8 K/uL (1.0-4.3); LYMPH % 18.1 % (20.0-40.0); MEAN CELL VOLUME 84.2 fL (81.0-99.0); MEAN CORPUSCULAR HEMOGLOBIN 27.6 pg (27.0-31.0); MEAN CORPUSCULAR HGB CONC 32.7 g/dL (33.0-37.0); MEAN PLATELET VOLUME 9.4 fL (7.2-11.7); MONO # 0.5 K/uL (0.0-0.8); MONO % 12.2 % (0.0-10.0); NEUT # 2.6 K/uL (1.8-7.0); NEUT % 63.4 % (50.0-75.0); NRBC % 0.1 % (0.0-2.0); RBC 3.25 Mil/uL (3.80-5.20); RED CELL DISTRIBUTION WIDTH 14.3 % (11.5-14.5); WHITE BLOOD COUNT 4.2 K/uL (4.8-10.8)
[2018-02-17 06:29] LABS: ALB/GLOB RATIO 0.9 (1.0-2.1); ALBUMIN 3.5 g/dL (3.5-5.0); CALCIUM 8.8 mg/dl (8.6-10.4)
[2018-02-17] MEDS: Tiotropium 18 mcg Cap For Inhalation INH SCH (07:38)
--- NOTE | 2018-02-17 07:47 | CP.PCM.PN ---
Subjective - Date & Time of Evaluation Date of Evaluation: 02/17/18 Time of Evaluation: 07:47 Objective - Vital Signs/Intake and Output Vital Signs (last 24 hours): Temp Pulse Resp BP Pulse Ox 98.7 F 70 20 159/71 H 97 02/17/18 04:05 02/17/18 04:05 02/17/18 04:05 02/17/18 04:05 02/16/18 23:15 Intake and Output: 02/17/18 02/17/18 06:59 18:59 Intake Total 675 Balance 675 - Medications Medications: Current Medications Amlodipine Besylate (Norvasc) 10 mg PO DAILY [facility] Last Admin: 02/16/18 09:19 Dose: 10 mg Aspirin (Ecotrin) 81 mg PO DAILY [facility] Last Admin: 02/16/18 09:19 Dose: 81 mg Calcium Acetate (Phoslo) 667 mg PO TID [facility] Last Admin: 02/16/18 18:42 Dose: 667 mg Clonidine HCl (Catapres) 0.1 mg PO BID [facility] Last Admin: 02/16/18 18:42 Dose: 0.1 mg Docusate Sodium (Colace) 100 mg PO BID [facility] Last Admin: 02/16/18 18:42 Dose: 100 mg Epoetin Ricardo (Procrit) 4,000 u IV [facility] [place] Gabapentin (Neurontin) 100 mg PO TID [facility] Last Admin: 02/16/18 18:42 Dose: 100 mg Heparin Sodium (Porcine) (Heparin) 2,000 units IVP [facility] [place] Heparin Sodium (Porcine) (Heparin) 5,000 units SC Q8 [facility] Last Admin: 02/17/18 05:29 Dose: Not Given Ciprofloxacin (Cipro 400mg/200ml Dsw) 400 mg in 200 mls @ 133 mls/hr IVPB DAILY [facility] PRN Reason: Protocol Last Admin: 02/16/18 10:45 Dose: 133 mls/hr Vancomycin HCl 1 gm/ Sodium (Chloride) 200 mls @ 166.7 mls/hr IVPB Q24H [facility] PRN Reason: Protocol Last Admin: 02/16/18 18:41 Dose: 166.7 mls/hr Piperacillin Sod/Tazobactam (Sod 2.25 gm/ Dextrose) 50 mls @ 200 mls/hr IVPB Q8H [facility] PRN Reason: Protocol Last Admin: 02/17/18 03:00 Dose: 200 mls/hr Insulin Human Regular (Novolin R) 0 unit SC ACHS [facility] PRN Reason: Protocol Last Admin: 02/16/18 22:33 Dose: Not Given Pantoprazole Sodium (Protonix Ec Tab) 20 mg PO DAILY [facility] Rosuvastatin Calcium (Crestor) 5 mg PO HS [facility] Last Admin: 02/16/18 21:39 Dose: 5 mg Sevelamer Carbonate (Renvela) 800 mg PO TID [facility] Last Admin: 02/16/18 18:42 Dose: 800 mg Tiotropium [place] (Spiriva) 18 mcg INH RQ24 [facility] Last Admin: 02/16/18 08:09 Dose: 18 mcg Vitamin B Complex/Vit C/Folic Acid (Nephro-Lorena) 1 tab PO 0800 [facility] Last Admin: 02/16/18 10:44 Dose: 1 tab - Labs Labs: 02/17/18 05:48 02/17/18 05:48 PT 13.3 SECONDS (9.7-12.2) H 02/15/18 08:30 INR 1.2 02/15/18 08:30 APTT 34 SECONDS (21-34) 02/15/18 08:30
[2018-02-17] MEDS: (Novolin R) Insulin Human Regular 100 units/ml vial SC SCH ×4 (08:10→22:38)
[2018-02-17] MEDS: Multivitamin Vitamin B Complex (Nephro-Vite) Tab PO SCH (08:11)
--- NOTE | 2018-02-17 09:24 | CP.PCM.PN ---
<Polo Odonnell - Last Filed: 02/17/18 16:06> Subjective - Date & Time of Evaluation Date of Evaluation: 02/17/18 Time of Evaluation: 09:21 - Subjective Subjective: PGY-[address] Randall's service: Pt seen and examined at bedside. Nursing reports no acute events overnight. Patient found eating breakfast with at bedside. She reports breathing better today after dialysis yesterday. Admits occasional cough that is dry. Denies fever, chills, SOB at rest, abd pain, N/v. Objective - Vital Signs/Intake and Output Vital Signs (last 24 hours): Temp Pulse Resp BP Pulse Ox 98.4 F 64 20 157/77 H 100 02/17/18 07:00 02/17/18 08:00 02/17/18 07:00 02/17/18 07:00 02/17/18 07:00 Intake and Output: 02/17/18 02/17/18 06:59 18:59 Intake Total 675 Balance 675 - Medications Medications: Current Medications Amlodipine Besylate (Norvasc) 10 mg PO DAILY [facility] Last Admin: 02/16/18 09:19 Dose: 10 mg Aspirin (Ecotrin) 81 mg PO DAILY [facility] Last Admin: 02/16/18 09:19 Dose: 81 mg Calcium Acetate (Phoslo) 667 mg PO TID [facility] Last Admin: 02/16/18 18:42 Dose: 667 mg Clonidine HCl (Catapres) 0.1 mg PO BID [facility] Last Admin: 02/16/18 18:42 Dose: 0.1 mg Docusate Sodium (Colace) 100 mg PO BID [facility] Last Admin: 02/16/18 18:42 Dose: 100 mg Epoetin Ricardo (Procrit) 4,000 u IV [facility] Gabapentin (Neurontin) 100 mg PO TID [facility] Last Admin: 02/16/18 18:42 Dose: 100 mg Heparin Sodium (Porcine) (Heparin) 2,000 units IVP [facility] Heparin Sodium (Porcine) (Heparin) 5,000 units SC Q8 [facility] Last Admin: 02/17/18 05:29 Dose: Not Given Ciprofloxacin (Cipro 400mg/200ml Dsw) 400 mg in 200 mls @ 133 mls/hr IVPB DAILY [facility] PRN Reason: Protocol Last Admin: 02/16/18 10:45 Dose: 133 mls/hr Vancomycin HCl 1 gm/ Sodium (Chloride) 200 mls @ 166.7 mls/hr IVPB Q24H [facility] PRN Reason: Protocol Last Admin: 02/16/18 18:41 Dose: 166.7 mls/hr Piperacillin Sod/Tazobactam (Sod 2.25 gm/ Dextrose) 50 mls @ 200 mls/hr IVPB Q8H [facility] PRN Reason: Protocol Last Admin: 02/17/18 03:00 Dose: 200 mls/hr Insulin Human Regular (Novolin R) 0 unit SC ACHS [facility] PRN Reason: Protocol Last Admin: 02/17/18 08:10 Dose: 2 unit Pantoprazole Sodium (Protonix Ec Tab) 20 mg PO DAILY [facility] Last Admin: 02/16/18 08:11 Dose: 20 mg Rosuvastatin Calcium (Crestor) 5 mg PO HS [facility] Last Admin: 02/16/18 21:39 Dose: 5 mg Sevelamer Carbonate (Renvela) 800 mg PO TID [facility] Last Admin: 02/16/18 18:42 Dose: 800 mg Tiotropium [place] (Spiriva) 18 mcg INH RQ24 [facility] Last Admin: 02/17/18 07:38 Dose: 18 mcg Vitamin B Complex/Vit C/Folic Acid (Nephro-Lorena) 1 tab PO 0800 [facility] Last Admin: 02/17/18 08:11 Dose: 1 tab - Labs Labs: 02/17/18 05:48 02/17/18 05:48 PT 13.3 SECONDS (9.7-12.2) H 02/15/18 08:30 INR 1.2 02/15/18 08:30 APTT 34 SECONDS (21-34) 02/15/18 08:30 - Additional Findings Additional findings: - Constitutional Appears: No Acute Distress, Chronically Ill, Other (lethargic) - Eye Exam Eye Exam: absent: Normal appearance (right eye-cataract) - ENT Exam ENT Exam: Mucous Membranes Dry - Respiratory Exam Respiratory Exam: Decreased Breath Sounds, Inspiratory Rales, Rhonchi, Wheezes. absent: Clear to Auscultation Bilateral, Respiratory Distress - Cardiovascular Exam Cardiovascular Exam: REGULAR RHYTHM, +S1, +S2, Systolic Murmur - GI/Abdominal Exam GI & Abdominal Exam: Normal Bowel Sounds, Soft. absent: Distended, Firm, Tenderness - Extremities Exam Extremities exam: Positive for: pedal edema, pedal pulses present. Negative for : tenderness Additional comments: AV fistula-left arm; + thrill - Neurological Exam Additional comments: CNII-XII intact, AAOx3 - Skin Skin Exam: Intact, Normal Color, Warm Assessment and Plan - Assessment and Plan (Free Text) Plan: Bilateral Pneumonia: * Chest xray: diffuse b/l infiltrates; may represent edema/CHF however b/l pneumonia not excluded; b/l effusions * repeat (02/17/18): Improving bibasilar infiltrates but persistent RUL opacity. * ID consulted, Dr. Cowan, help appreciated * Follow up: legionella, strep pneumo, mycoplasma, influenza * Nasal MRSA: f/u * Lactate: 2.8, repeat was 1.8 * Procalcitonin: 1.02 H * Blood cx: f/u * Urine cx via straight cath: pt refused * Induced sputum cx: f/u * Medications: * Zosyn 2.25g IV Q8h at 6pm (active since 02/15/18) * Cipro 400mg IV daily at 10am (active 02/16/18) * Vanco 1gm IV daily at 10am (active 02/16/18) CHF Exacerbation, Diastolic (HFpEF) * Cardiology consulted, Dr. zurita, help appreciated * Echo in 08/19: concentric LVH, EF 65%, grade II diastolic dysfunction * Echo (02/17/18): LV upper limit of normal. Borderline concentric LVH. EF 65-70% . LV diastolic function normal. Left atrium mildly dilated. Trace to mild Tricuspid regurgitation. Moderate pulmonary HTN. * Strict I/Os * HOB at 45 degree angle * Daily weights Pulmonary HTN Etiology: Likely JORGE Echo (02/17/18): LV upper limit of normal. Borderline concentric LVH. EF 65-70%. LV diastolic function normal. Left atrium mildly dilated. Trace to mild Tricuspid regurgitation. Moderate pulmonary HTN. f/u Dr. Moe recommendations ESRD (MWF) * Nephrology consulted, Dr. Samuel- help appreciated; Dr. Samuel already aware and writtten orders for HD; * Schedule-MWF; dialysis via left arm AV fistula; patient scheduled for dialysis today * Medications: * Phoslo 667mg PO TID * Sevelamir 800mg PO TID Sepsis, Severe Resolved Source: ? Pneumonia Criteria Lactate: 2.8, repeat was 1.8 Elevated Procalcitonin 1.0 see below for Meds f/u blood culture pt refusing urine culture Thrombocytopenia, r/o HIT Platelet count: 119 today Stop heparin VTE prophylaxis, continue small doses ordered for dialysis f/u HIT AB Monitor DM * Accuchecks ACHS * A1c (2015) 6.1 * A1c (02/16/2018): 6.1 * Start Glimepiride 2mg PO Daily * Consider Januvia if affordable for patient, superior outcomes for T2DM pts ( EMPAREG/CANVAS trials) * TSH/Free T4: WNL * Patient is not on any home insulin or hypoglycemics * ISS * Hypoglycemia protocol HTN * Continue Norvasc 10mg PO HS, Losartan 25mg PO daily * Continue clonidine 0.1mg PO BID at 8am & 8pm * Hold metoprolol tartrate 25mg PO BID til after HD and reassess patient. * Continue to monitor COPD w/Sleep Apnea w/Bipap * Patient is not on any inhalers at home * Pulmonology consulted, Dr. Moe- help appreciated * Spiriva 18mcg daily * BiPAP 12/6 at FiO2 60% at bedtime HLD * Crestor 5mg PO HS * Lipid panel: T chol 87, LDL < 30, HDL 33, TG 59 CVA affecting left side * PT/OT eval and treat and for TRINIDAD evaluation * Continue aspirin 81mg PO daily and crestor 5mg PO HS PVD, neuropathy * Continue aspirin 81mg PO daily and crestor 5mg PO HS * Continue Gabapentin 100mg PO TID Anemia of chronic disease Etiology: Secondary to CKD Hgb stable Monitor Hyperkalemia Resolved Hypophosphotemia Phos 0.9 on admission Pt on phos-lo f/u Dr. Jimmie dillon Hx Legally blind Prophylaxis * Protonix 20mg PO daily * Heparin 5000u sc Q8h * No SCDs due to LE neuropathy * Heart healthy 2gm Na renal low carb diet Disposition: F/u Dr. Payal dillon for pulm HTN. F/u if Januvia affordable for patient at discharge, if not continue glimepiride. Clinically improving pneumonia. Polo Odonnell PGY-2 D/w Dr. Randall <Randall,Ja J - Last Filed: 02/17/18 18:09> Objective - Vital Signs/Intake and Output Vital Signs (last 24 hours): Temp Pulse Resp BP Pulse Ox 98.2 F 58 L 18 159/69 H 99 02/17/18 15:55 02/17/18 15:55 02/17/18 15:55 02/17/18 15:55 02/17/18 15:55 Intake and Output: 02/17/18 02/17/18 06:59 18:59 Intake Total 675 480 Output Total 50 Balance 675 430 - Medications Medications: Current Medications Amlodipine Besylate (Norvasc) 10 mg PO DAILY [facility] Last Admin: 02/17/18 09:39 Dose: 10 mg Aspirin (Ecotrin) 81 mg PO DAILY [facility] Last Admin: 02/17/18 09:39 Dose: 81 mg Calcium Acetate (Phoslo) 667 mg PO TID [facility] Last Admin: 02/17/18 13:42 Dose: 667 mg Clonidine HCl (Catapres) 0.1 mg PO BID [facility] Last Admin: 02/17/18 09:39 Dose: 0.1 mg Dextrose (Dextrose 50% Inj) 0 ml IV STAT PRN; Protocol PRN Reason: Hypoglycemia Protocol Dextrose (Glutose 15) 0 gm PO ONCE PRN; Protocol PRN Reason: Hypoglycemia Protocol Docusate Sodium (Colace) 100 mg PO BID [facility] Last Admin: 02/17/18 09:39 Dose: 100 mg Epoetin Ricardo (Procrit) 8,000 unit IV MWF [facility] Gabapentin (Neurontin) 100 mg PO TID [facility] Last Admin: 02/17/18 13:42 Dose: 100 mg Glimepiride (Amaryl) 2 mg PO DAILY [facility] Glucagon (Glucagen Diagnostic Kit) 0 mg IM STAT PRN; Protocol PRN Reason: Hypoglycemia Protocol Heparin Sodium (Porcine) (Heparin) 2,000 units IVP MWF [facility] Ciprofloxacin (Cipro 400mg/200ml Dsw) 400 mg in 200 mls @ 133 mls/hr IVPB DAILY [facility] PRN Reason: Protocol Last Admin: 02/17/18 09:37 Dose: 133 mls/hr Vancomycin HCl 1 gm/ Sodium (Chloride) 200 mls @ 166.7 mls/hr IVPB Q24H [facility] PRN Reason: Protocol Last Admin: 02/17/18 11:27 Dose: 166.7 mls/hr Piperacillin Sod/Tazobactam (Sod 2.25 gm/ Dextrose) 50 mls @ 200 mls/hr IVPB Q8H [facility] PRN Reason: Protocol Last Admin: 02/17/18 09:37 Dose: 200 mls/hr Dextrose (Dextrose 5% In Water 1000 Ml) 1,000 mls @ 0 mls/hr IV .Q0M PRN; Protocol; Per Protocol PRN Reason: Hypoglycemia Protocol Insulin Human Regular (Novolin R) 0 unit SC ACHS [facility] PRN Reason: Protocol Last Admin: 02/17/18 12:28 Dose: 3 unit Metoprolol Tartrate (Lopressor) 25 mg PO BID [facility] Last Admin: 02/17/18 11:36 Dose: 25 mg Pantoprazole Sodium (Protonix Ec Tab) 20 mg PO DAILY [facility] Last Admin: 02/17/18 09:39 Dose: 20 mg Rosuvastatin Calcium (Crestor) 5 mg PO HS [facility] Last Admin: 02/16/18 21:39 Dose: 5 mg Saccharomyces Boulardii (Florastor) 250 mg PO BID [facility] Sevelamer Carbonate (Renvela) 800 mg PO TID [facility] Last Admin: 02/17/18 13:42 Dose: 800 mg Tiotropium [place] (Spiriva) 18 mcg INH RQ24 [facility] Last Admin: 02/17/18 07:38 Dose: 18 mcg Vitamin B Complex/Vit C/Folic Acid (Nephro-Lorena) 1 tab PO 0800 [facility] Last Admin: 02/17/18 08:11 Dose: 1 tab - Labs Labs: 02/17/18 05:48 02/17/18 05:48 PT 13.3 SECONDS (9.7-12.2) H 02/15/18 08:30 INR 1.2 02/15/18 08:30 APTT 34 SECONDS (21-34) 02/15/18 08:30 Attending/Attestation - Attestation I have personally seen and examined this patient.: Yes I have fully participated in the care of the patient.: Yes I have reviewed all pertinent clinical information, including history, physical exam and plan: Yes Notes (Text): 02/17/18 17:48 Patient was seen and examined at 11:00 AM Exam, assessment and plan were gone over with Resident Dr. Chanel Odonnell. Also on ROS: Breathing has improved much since admission two days ago: "my chest does not feel heavy" Has not moved bowels yet since 02/15/18 but typically has one in the afternoons every other day so she is due later today NO other complaints upon FULL ROS Also on Exam: Right Eye Cataract with pupil not visible Left Eye Pupil is round and reactive to light Patient not able to follow pen light as she is blind in both eyes Diffuse inspiratory rales however they have decreased in intensity and there is no longer any expiratory wheezing Bilateral edema of the legs has resolved Left Arm AV Fistula + Thrill Full body skin exam done and there are NO ulcers noted Bilateral Pneumonia: sputum never done as ordered however NO WBC and vitals are stable and she has improved clinicallly. F/U Blood Culture. F/U Vanco trough 9: 30 AM 02/18/18. Continue the Vanco, Cipro, and Zosyn to treat HCAP with risk for MDR and MRSA Pneumonia Diastolic HF: please see report for Echocardiogram done on this admission ESRD on HD MWF via Left Arm AV Fistula Questionable DM 2: NO medications at home and currently on RISS. However, blood glucose has been elevated at times in the high 200s. Considering the ESRD can not use Metformin. Have started Glimepiride 2 mg PO with breakfast starting 02/18 HTN: On Norvasc and Clonidine. The Cozaar was held due to the elevated Potassium. The Metoprolol Tartrate has been restarted at 25 mg PO 2x/day starting 02/17/18 as her HF symptoms have clinically improved. Hopefully this will help to control her blood pressure better COPD: not on medications at home. Added Spiriva upon admission. Moderate Pulmonary HTN: as seen on Echocardiogram done on this admission. Medicine Team please speak with [place] Lead Dr. Moe for recommendations Declining Platelets: they have declined significantly since admission. Therefore Heparin for DVT prophylaxis has been discontinued and Medicine Team please follow up Heparin Induced Platelet Abs which was ordered. Bilateral SCDs for DVT prophylaxis for now. May continue the Heparin being given at time of HD for now. HLD CVA Affecting Left Side: ASA, Crestor PVD/Neuropathy: ASA, Crestor, Gabapentin Anemia Secondary to ESRD: Procrit ID: Dr. Cowan Cardiology: Dr. Zurita Nephrology: Dr. Samuel Disposition: As long as patient is fever free for at least 48 hours, pending blood culture ( which was not done at time of admission as ordered) comes back negative, then we can likely discharge patient Patient will likely need TRINIDAD vs Home PT depending upon her wishes which at this time is return to home. F/U PT/OT recommendations Ja Randall D.O.
[2018-02-17] MEDS: Ciprofloxacin 400mg/200ml D5W 400 MG/200 ML BAG IVPB SCH (09:37)
[2018-02-17] MEDS: Pantoprazole 20 mg EC Tab PO SCH (09:39)
[2018-02-17] MEDS: Vancomycin 1 GM in Sodium Chloride 0.9% 200 ML IVPB SCH (11:27)
--- NOTE | 2018-02-17 13:08 | RAD ---
HISTORY: Hx CHF and Bilateral Pnuemonia COMPARISON: 02/15/2018 FINDINGS: LUNGS: Improving right basilar infiltrate. Improving left basilar infiltrate. Persistent right upper lobe opacity. PLEURA: No significant pleural effusion identified, no pneumothorax apparent. CARDIOVASCULAR: Normal heart size. Right internal jugular central venous catheter. OSSEOUS STRUCTURES: No significant abnormalities. VISUALIZED UPPER ABDOMEN: Normal. OTHER FINDINGS: None. IMPRESSION: Improving bibasilar infiltrates but persistent right upper lobe opacity.
--- NOTE | 2018-02-17 14:30 | CP.PCM.PN ---
Subjective - Date & Time of Evaluation Date of Evaluation: 02/17/18 Time of Evaluation: 14:30 - Subjective Subjective: Nephrology Consultation Note: Assessment: stable Pneumonia, fluid overload Hyperkalemia Diabetic chronic Kidney Disease (E11.22) Hypertensive Chronic Kidney Disease (I12.0) End stage renal disease (N18.6) dependence on hemodialysis (Z99.2) (MWF) via AVF Anemia (D64.9), Hyperphosphatemia (E83.39), Secondary Hyperparathyroidism (E21.1 ), HTN (I12.0) chronic Hep C Plan: will plan for next dialysis per MWF schedule. Continue with Nephrovite 1 tab/ day. PRBC as needed for anemia. On LOUISA as epogen with HD as last Hb 9 Continue with phos binders home dose check phos level BP control with meds as ordered. continue with home meds. she is on RAAS blockade with losartan, hold due to hyperkalemia. Glycemic control, Dialysis consistent diet Further work up/management as per primary team Dose meds/antibiotics for ESRD status. Avoid fleets enema/magnesium based laxatives CXR 02/01&: improvement noted Thanks for allowing me to participate in care of your patient. Will follow patient with you. Please call if any Qs. d/w family and team Dr Vic Samuel Office: [phone] Chief Complaint; SOB reason for consult; ESRD HPI: Pt is a 67 F with hx of ESRD on hemodialysis (MWF) via AVF, last dialysis wed x 4 years @ [place], chronic anemia, hyperphosphatemia, secondary hyperparathyroidism, Diabetes Mellitus, hypertension, chronic Hep C, legally blind, neuropathy presented with complaints of SOB and fever x 1 day and being admitted for pneumonia. renal consult for ESRD management. pt says she felt fine 1 day before. felt cold with chills at home with SOB x 1 day. ROS: She feels better now Denies chest pain, palpitation, better shortness of breath, denies leg swelling. makes small amount of urine has cough. all other negative Physical Examination: General Appearance: Comfortable, in no acute respiratory distress, co-operative . Vitals reviewed and noted as below Head; Atraumatic, normocephalic ENT: no ulcers no thrush. Tongue is midline. Oropharynx: no rash or ulcers. EYES: she is blind Neck; supple no lymphadenopathy, no thyromegaly or bruit Lungs: Normal respiratory rate/effort. Breath sounds bilateral improved, has few crackles Heart: Normal rate. s1s2 normal. No rub or gallop. Extremities: no edema. No varicose veins Neurological: Patient is alert, awake and oriented to person, place and time. No focal deficit. Strength bilateral appropriate and equal Skin: Warm and dry. Normal turgor. No rash. Palpitation: Normal elasticity for age Abdomen: Abdomen is soft. Bowel sounds +. There is no abdominal tenderness, no guarding/rigidity or organomegaly Psych: normal insight and normal affect/mood MSK: no joint tenderness or swelling. Digits and nails normal, no deformity : kidney or bladder not palpable Access: AVF LUE with thrill and bruit Labs/imaging reviewed. Past medical history, past surgical history, family history, social history, allergy reviewed and noted as below Family Hx: no hx of CKD. Non contributory normal LV function: echo aug 2017 Objective - Vital Signs/Intake and Output Vital Signs (last 24 hours): Temp Pulse Resp BP Pulse Ox 98.4 F 64 20 135/70 100 02/17/18 07:00 02/17/18 08:00 02/17/18 07:00 02/17/18 11:36 02/17/18 07:00 Intake and Output: 02/17/18 02/17/18 06:59 18:59 Intake Total 675 Balance 675 - Medications Medications: Current Medications Amlodipine Besylate (Norvasc) 10 mg PO DAILY [facility] Last Admin: 02/17/18 09:39 Dose: 10 mg Aspirin (Ecotrin) 81 mg PO DAILY [facility] Last Admin: 02/17/18 09:39 Dose: 81 mg Calcium Acetate (Phoslo) 667 mg PO TID [facility] Last Admin: 02/17/18 13:42 Dose: 667 mg Clonidine HCl (Catapres) 0.1 mg PO BID [facility] Last Admin: 02/17/18 09:39 Dose: 0.1 mg Docusate Sodium (Colace) 100 mg PO BID [facility] Last Admin: 02/17/18 09:39 Dose: 100 mg Epoetin Ricardo (Procrit) 8,[address] [facility] Gabapentin (Neurontin) 100 mg PO TID [facility] Last Admin: 02/17/18 13:42 Dose: 100 mg Heparin Sodium (Porcine) (Heparin) 2,000 units IVP MWF [facility] Heparin Sodium (Porcine) (Heparin) 5,000 units SC Q8 [facility] Last Admin: 02/17/18 13:36 Dose: Not Given Ciprofloxacin (Cipro 400mg/200ml Dsw) 400 mg in 200 mls @ 133 mls/hr IVPB DAILY [facility] PRN Reason: Protocol Last Admin: 02/17/18 09:37 Dose: 133 mls/hr Vancomycin HCl 1 gm/ Sodium (Chloride) 200 mls @ 166.7 mls/hr IVPB Q24H [facility] PRN Reason: Protocol Last Admin: 02/17/18 11:27 Dose: 166.7 mls/hr Piperacillin Sod/Tazobactam (Sod 2.25 gm/ Dextrose) 50 mls @ 200 mls/hr IVPB Q8H [facility] PRN Reason: Protocol Last Admin: 02/17/18 09:37 Dose: 200 mls/hr Insulin Human Regular (Novolin R) 0 unit SC ACHS [facility] PRN Reason: Protocol Last Admin: 02/17/18 12:28 Dose: 3 unit Metoprolol Tartrate (Lopressor) 25 mg PO BID [facility] Last Admin: 02/17/18 11:36 Dose: 25 mg Pantoprazole Sodium (Protonix Ec Tab) 20 mg PO DAILY [facility] Last Admin: 02/17/18 09:39 Dose: 20 mg Rosuvastatin Calcium (Crestor) 5 mg PO HS [facility] Last Admin: 02/16/18 21:39 Dose: 5 mg Saccharomyces Boulardii (Florastor) 250 mg PO BID [facility] Sevelamer Carbonate (Renvela) 800 mg PO TID [facility] Last Admin: 02/17/18 13:42 Dose: 800 mg Tiotropium [place] (Spiriva) 18 mcg INH RQ24 [facility] Last Admin: 02/17/18 07:38 Dose: 18 mcg Vitamin B Complex/Vit C/Folic Acid (Nephro-Lorena) 1 tab PO 0800 [facility] Last Admin: 02/17/18 08:11 Dose: 1 tab - Labs Labs: 02/17/18 05:48 02/17/18 05:48 PT 13.3 SECONDS (9.7-12.2) H 02/15/18 08:30 INR 1.2 02/15/18 08:30 APTT 34 SECONDS (21-34) 02/15/18 08:30
[2018-02-17] MEDS ORDERED: Dextrose 50% SYRINGE Inj (50 ml) IV PRN (14:47)
[2018-02-17] MEDS ORDERED: Glucagon Recombinant 1 mg Inj IM PRN (14:47)
--- NOTE | 2018-02-17 15:16 | CP.PCM.PN ---
Subjective - Date & Time of Evaluation Date of Evaluation: 02/17/18 Time of Evaluation: 08:00 - Subjective Subjective: APPEARS MORE COMFORTAB;E AWAKE ALERT NAD AT BEDSIDE Objective - Vital Signs/Intake and Output Vital Signs (last 24 hours): Temp Pulse Resp BP Pulse Ox 98.4 F 58 L 20 135/70 100 02/17/18 07:00 02/17/18 13:50 02/17/18 07:00 02/17/18 11:36 02/17/18 07:00 Intake and Output: 02/17/18 02/17/18 06:59 18:59 Intake Total 675 Balance 675 - Medications Medications: Current Medications Amlodipine Besylate (Norvasc) 10 mg PO DAILY [facility] Last Admin: 02/17/18 09:39 Dose: 10 mg Aspirin (Ecotrin) 81 mg PO DAILY [facility] Last Admin: 02/17/18 09:39 Dose: 81 mg Calcium Acetate (Phoslo) 667 mg PO TID [facility] Last Admin: 02/17/18 13:42 Dose: 667 mg Clonidine HCl (Catapres) 0.1 mg PO BID [facility] Last Admin: 02/17/18 09:39 Dose: 0.1 mg Dextrose (Dextrose 50% Inj) 0 ml IV STAT PRN; Protocol PRN Reason: Hypoglycemia Protocol Dextrose (Glutose 15) 0 gm PO ONCE PRN; Protocol PRN Reason: Hypoglycemia Protocol Docusate Sodium (Colace) 100 mg PO BID [facility] Last Admin: 02/17/18 09:39 Dose: 100 mg Epoetin Ricardo (Procrit) 8,000 unit IV [facility] [place] Gabapentin (Neurontin) 100 mg PO TID [facility] Last Admin: 02/17/18 13:42 Dose: 100 mg Glimepiride (Amaryl) 2 mg PO DAILY [facility] Glucagon (Glucagen Diagnostic Kit) 0 mg IM STAT PRN; Protocol PRN Reason: Hypoglycemia Protocol Heparin Sodium (Porcine) (Heparin) 2,000 units IVP MWF [facility] Ciprofloxacin (Cipro 400mg/200ml Dsw) 400 mg in 200 mls @ 133 mls/hr IVPB DAILY [facility] PRN Reason: Protocol Last Admin: 02/17/18 09:37 Dose: 133 mls/hr Vancomycin HCl 1 gm/ Sodium (Chloride) 200 mls @ 166.7 mls/hr IVPB Q24H [facility] PRN Reason: Protocol Last Admin: 02/17/18 11:27 Dose: 166.7 mls/hr Piperacillin Sod/Tazobactam (Sod 2.25 gm/ Dextrose) 50 mls @ 200 mls/hr IVPB Q8H [facility] PRN Reason: Protocol Last Admin: 02/17/18 09:37 Dose: 200 mls/hr Dextrose (Dextrose 5% In Water 1000 Ml) 1,000 mls @ 0 mls/hr IV .Q0M PRN; Protocol; Per Protocol PRN Reason: Hypoglycemia Protocol Insulin Human Regular (Novolin R) 0 unit SC ACHS [facility] PRN Reason: Protocol Last Admin: 02/17/18 12:28 Dose: 3 unit Metoprolol Tartrate (Lopressor) 25 mg PO BID [facility] Last Admin: 02/17/18 11:36 Dose: 25 mg Pantoprazole Sodium (Protonix Ec Tab) 20 mg PO DAILY [facility] Last Admin: 02/17/18 09:39 Dose: 20 mg Rosuvastatin Calcium (Crestor) 5 mg PO HS [facility] Last Admin: 02/16/18 21:39 Dose: 5 mg Saccharomyces Boulardii (Florastor) 250 mg PO BID [facility] Sevelamer Carbonate (Renvela) 800 mg PO TID [facility] Last Admin: 02/17/18 13:42 Dose: 800 mg Tiotropium [place] (Spiriva) 18 mcg INH RQ24 [facility] Last Admin: 02/17/18 07:38 Dose: 18 mcg Vitamin B Complex/Vit C/Folic Acid (Nephro-Lorena) 1 tab PO 0800 [facility] Last Admin: 02/17/18 08:11 Dose: 1 tab - Labs Labs: 02/17/18 05:48 02/17/18 05:48 PT 13.3 SECONDS (9.7-12.2) H 02/15/18 08:30 INR 1.2 02/15/18 08:30 APTT 34 SECONDS (21-34) 02/15/18 08:30 - Constitutional Appears: Non-toxic, Chronically Ill - Head Exam Head Exam: NORMOCEPHALIC - Eye Exam Eye Exam: absent: Scleral icterus Additional comments: CORNEAL OPACITY OD - ENT Exam ENT Exam: Normal Exam - Neck Exam Neck Exam: absent: Lymphadenopathy - Respiratory Exam Respiratory Exam: Decreased Breath Sounds - Cardiovascular Exam Cardiovascular Exam: REGULAR RHYTHM - GI/Abdominal Exam GI & Abdominal Exam: Distended, Soft - Rectal Exam Rectal Exam: Deferred - Exam Exam: NORMAL INSPECTION - Extremities Exam Extremities Exam: absent: Pedal Edema - Back Exam Back Exam: absent: CVA tenderness (L), CVA tenderness (R) - Neurological Exam Neurological Exam: Alert, Awake, Oriented x3 Neuro motor strength exam: Left Upper Extremity: 3, Right Upper Extremity: 3, Left Lower Extremity: 3, Right Lower Extremity: 3 - Psychiatric Exam Psychiatric exam: Normal Mood - Skin Skin Exam: Dry Assessment and Plan (1) Pneumonia Status: Acute (2) Renal failure Status: Acute (3) CHF (congestive heart failure) Status: Inactive (4) CKD (chronic kidney disease) requiring chronic dialysis Status: Acute (5) ESRD (end stage renal disease) Status: Inactive - Assessment and Plan (Free Text) Assessment: CONT IV RX AWAIT CULTURES
[2018-02-17] MEDS: Saccharomyces Boulardi 250 mg Cap PO SCH (17:48)
[2018-02-18] MEDS: PIPERACILLIN IVPB SCH ×3 (01:31→17:42)
[2018-02-18] MEDS: DEXTROSE 5% IVPB SCH ×3 (01:31→17:42)
[2018-02-18] MEDS: TAZOBACT IVPB SCH ×3 (01:31→17:42)
[2018-02-18] MEDS: WATER IVPB SCH ×3 (01:31→17:42)
[2018-02-18 05:44] LABS: BASO % 0.7 % (0.0-2.0); EOS # 0.3 K/uL (0.0-0.7); EOS % 7.2 % (0.0-4.0); HEMOGLOBIN 8.9 g/dL (11.0-16.0); LYMPH # 0.6 K/uL (1.0-4.3); LYMPH % 16.1 % (20.0-40.0); MEAN CELL VOLUME 83.7 fL (81.0-99.0); MEAN CORPUSCULAR HEMOGLOBIN 27.4 pg (27.0-31.0); MEAN CORPUSCULAR HGB CONC 32.7 g/dL (33.0-37.0); MEAN PLATELET VOLUME 9.4 fL (7.2-11.7); MONO # 0.4 K/uL (0.0-0.8); MONO % 11.7 % (0.0-10.0); NEUT # 2.3 K/uL (1.8-7.0); NEUT % 64.3 % (50.0-75.0); RBC 3.24 Mil/uL (3.80-5.20); RED CELL DISTRIBUTION WIDTH 14.1 % (11.5-14.5); WHITE BLOOD COUNT 3.6 K/uL (4.8-10.8)
[2018-02-18 06:17] LABS: ALB/GLOB RATIO 0.9 (1.0-2.1); ALBUMIN 3.4 g/dL (3.5-5.0)
[2018-02-18] MEDS: Tiotropium 18 mcg Cap For Inhalation INH SCH (07:55)
[2018-02-18] MEDS ORDERED: Epoetin Alfa Dialysis 40000 UNIT/ml Inj IV SCH (09:00)
[2018-02-18] MEDS ORDERED: Epoetin Alfa Dialysis 2000 U/ML Inj IV SCH (09:00)
[2018-02-18] MEDS ORDERED: EPOETIN ALFA 4,000 UNIT/ML ML Dialysis IV SCH (09:00)
[2018-02-18 11:17] LABS: N MENINGITIS ACY/W135 NEGATIVE (NEGATIVE); N MENINGITIS B/ECOLI K1 NEGATIVE (NEGATIVE); STREP PNEUMONIAE NEGATIVE (NEGATIVE); STREPTOCOCCUS B NEGATIVE (NEGATIVE)
[2018-02-18] MEDS: Ciprofloxacin 400mg/200ml D5W 400 MG/200 ML BAG IVPB SCH ×2 (11:19→13:20)
[2018-02-18] MEDS: Saccharomyces Boulardi 250 mg Cap PO SCH ×2 (11:20→17:42)
[2018-02-18] MEDS: Multivitamin Vitamin B Complex (Nephro-Vite) Tab PO SCH (11:20)
[2018-02-18] MEDS: Pantoprazole 20 mg EC Tab PO SCH (11:21)
[2018-02-18] MEDS: (Novolin R) Insulin Human Regular 100 units/ml vial SC SCH ×5 (11:21→21:29)
[2018-02-18] MEDS: Vancomycin 1 GM in Sodium Chloride 0.9% 200 ML IVPB SCH (11:21)
--- NOTE | 2018-02-18 11:52 | CP.PCM.PN ---
Subjective - Date & Time of Evaluation Date of Evaluation: 02/18/18 Time of Evaluation: 08:00 - Subjective Subjective: improving vanco held for now Objective - Vital Signs/Intake and Output Vital Signs (last 24 hours): Temp Pulse Resp BP Pulse Ox 98.2 F 76 20 142/62 96 02/18/18 09:08 02/18/18 09:08 02/18/18 09:08 02/18/18 10:50 02/18/18 09:08 Intake and Output: 02/18/18 02/18/18 06:59 18:59 Intake Total 50 Balance 50 - Medications Medications: Current Medications Amlodipine Besylate (Norvasc) 10 mg PO DAILY [facility] Last Admin: 02/18/18 11:21 Dose: Not Given Aspirin (Ecotrin) 81 mg PO DAILY [facility] Last Admin: 02/18/18 11:20 Dose: Not Given Calcium Acetate (Phoslo) 667 mg PO TID [facility] Last Admin: 02/18/18 11:21 Dose: Not Given Clonidine HCl (Catapres) 0.1 mg PO BID [facility] Last Admin: 02/18/18 11:19 Dose: Not Given Dextrose (Dextrose 50% Inj) 0 ml IV STAT PRN; Protocol PRN Reason: Hypoglycemia Protocol Dextrose (Glutose 15) 0 gm PO ONCE PRN; Protocol PRN Reason: Hypoglycemia Protocol Docusate Sodium (Colace) 100 mg PO BID [facility] Last Admin: 02/18/18 11:20 Dose: Not Given Epoetin Ricardo (Procrit) 8,000 unit IV [facility] Gabapentin (Neurontin) 100 mg PO TID [facility] Last Admin: 02/18/18 11:20 Dose: Not Given Glimepiride (Amaryl) 2 mg PO DAILY [facility] Last Admin: 02/18/18 11:19 Dose: Not Given Glucagon (Glucagen Diagnostic Kit) 0 mg IM STAT PRN; Protocol PRN Reason: Hypoglycemia Protocol Heparin Sodium (Porcine) (Heparin) 2,000 units IVP [facility] Last Admin: 02/18/18 11:17 Dose: Not Given Ciprofloxacin (Cipro 400mg/200ml Dsw) 400 mg in 200 mls @ 133 mls/hr IVPB DAILY [facility] PRN Reason: Protocol Last Admin: 02/18/18 11:19 Dose: Not Given Piperacillin Sod/Tazobactam (Sod 2.25 gm/ Dextrose) 50 mls @ 200 mls/hr IVPB Q8H [facility] PRN Reason: Protocol Last Admin: 02/18/18 11:21 Dose: Not Given Dextrose (Dextrose 5% In Water 1000 Ml) 1,000 mls @ 0 mls/hr IV .Q0M PRN; Protocol; Per Protocol PRN Reason: Hypoglycemia Protocol Vancomycin HCl 1 gm/ Sodium (Chloride) 200 mls @ 166.7 mls/hr IVPB MWF [facility] PRN Reason: Protocol Insulin Human Regular (Novolin R) 0 unit SC ACHS [facility] PRN Reason: Protocol Last Admin: 02/18/18 11:21 Dose: Not Given Metoprolol Tartrate (Lopressor) 25 mg PO BID [facility] Last Admin: 02/18/18 11:20 Dose: Not Given Pantoprazole Sodium (Protonix Ec Tab) 20 mg PO DAILY [facility] Last Admin: 02/18/18 11:21 Dose: Not Given Rosuvastatin Calcium (Crestor) 5 mg PO HS [facility] Last Admin: 02/17/18 21:26 Dose: 5 mg Saccharomyces Boulardii (Florastor) 250 mg PO BID [facility] Last Admin: 02/18/18 11:20 Dose: Not Given Sevelamer Carbonate (Renvela) 800 mg PO TID [facility] Last Admin: 02/18/18 11:21 Dose: Not Given Tiotropium [place] (Spiriva) 18 mcg INH RQ24 [facility] Last Admin: 02/17/18 07:38 Dose: 18 mcg Vitamin B Complex/Vit C/Folic Acid (Nephro-Lorena) 1 tab PO 0800 [facility] Last Admin: 02/18/18 11:20 Dose: Not Given - Labs Labs: 02/18/18 05:26 02/18/18 05:26 PT 13.3 SECONDS (9.7-12.2) H 02/15/18 08:30 INR 1.2 02/15/18 08:30 APTT 34 SECONDS (21-34) 02/15/18 08:30 - Constitutional Appears: Non-toxic - Head Exam Head Exam: NORMOCEPHALIC - Eye Exam Eye Exam: PERRL - ENT Exam ENT Exam: Mucous Membranes Dry - Neck Exam Neck Exam: absent: Lymphadenopathy - Respiratory Exam Respiratory Exam: Decreased Breath Sounds - Cardiovascular Exam Cardiovascular Exam: REGULAR RHYTHM - GI/Abdominal Exam GI & Abdominal Exam: Distended - Rectal Exam Rectal Exam: Deferred - Exam Exam: NORMAL INSPECTION Assessment and Plan (1) Pneumonia Status: Acute (2) Renal failure Status: Acute (3) CHF (congestive heart failure) Status: Inactive (4) CKD (chronic kidney disease) requiring chronic dialysis Status: Acute (5) ESRD (end stage renal disease) Status: Inactive
--- NOTE | 2018-02-18 11:54 | CP.PCM.PN ---
<Joana Ochoa - Last Filed: 02/18/18 13:13> Subjective - Date & Time of Evaluation Date of Evaluation: 02/18/18 Time of Evaluation: 07:00 - Subjective Subjective: PGY1- Medicine Note Patient seen and examined at bedside and in no acute distress. Patient has no complaints. Patient is very eager to go home. Patient denies any chest pain, shortness of breath, abdominal pain, nausea, vomiting, constipation, or diarrhea. Objective - Vital Signs/Intake and Output Vital Signs (last 24 hours): Temp Pulse Resp BP Pulse Ox 98.2 F 76 20 142/62 96 02/18/18 09:08 02/18/18 09:08 02/18/18 09:08 02/18/18 10:50 02/18/18 09:08 Intake and Output: 02/18/18 02/18/18 06:59 18:59 Intake Total 50 Balance 50 - Medications Medications: Current Medications Amlodipine Besylate (Norvasc) 10 mg PO DAILY [facility] Last Admin: 02/18/18 11:21 Dose: Not Given Aspirin (Ecotrin) 81 mg PO DAILY [facility] Last Admin: 02/18/18 11:20 Dose: Not Given Calcium Acetate (Phoslo) 667 mg PO TID [facility] Last Admin: 02/18/18 11:21 Dose: Not Given Clonidine HCl (Catapres) 0.1 mg PO BID [facility] Last Admin: 02/18/18 11:19 Dose: Not Given Dextrose (Dextrose 50% Inj) 0 ml IV STAT PRN; Protocol PRN Reason: Hypoglycemia Protocol Dextrose (Glutose 15) 0 gm PO ONCE PRN; Protocol PRN Reason: Hypoglycemia Protocol Docusate Sodium (Colace) 100 mg PO BID [facility] Last Admin: 02/18/18 11:20 Dose: Not Given Epoetin Ricardo (Procrit) 8,000 unit IV [facility] Gabapentin (Neurontin) 100 mg PO TID [facility] Last Admin: 02/18/18 11:20 Dose: Not Given Glimepiride (Amaryl) 2 mg PO DAILY [facility] Last Admin: 02/18/18 11:19 Dose: Not Given Glucagon (Glucagen Diagnostic Kit) 0 mg IM STAT PRN; Protocol PRN Reason: Hypoglycemia Protocol Heparin Sodium (Porcine) (Heparin) 2,000 units IVP [facility] Last Admin: 02/18/18 11:17 Dose: Not Given Ciprofloxacin (Cipro 400mg/200ml Dsw) 400 mg in 200 mls @ 133 mls/hr IVPB DAILY [facility] PRN Reason: Protocol Last Admin: 02/18/18 11:19 Dose: Not Given Piperacillin Sod/Tazobactam (Sod 2.25 gm/ Dextrose) 50 mls @ 200 mls/hr IVPB Q8H [facility] PRN Reason: Protocol Last Admin: 02/18/18 11:21 Dose: Not Given Dextrose (Dextrose 5% In Water 1000 Ml) 1,000 mls @ 0 mls/hr IV .Q0M PRN; Protocol; Per Protocol PRN Reason: Hypoglycemia Protocol Vancomycin HCl 1 gm/ Sodium (Chloride) 200 mls @ 166.7 mls/hr IVPB MWF [facility] PRN Reason: Protocol Insulin Human Regular (Novolin R) 0 unit SC ACHS [facility] PRN Reason: Protocol Last Admin: 02/18/18 11:21 Dose: Not Given Metoprolol Tartrate (Lopressor) 25 mg PO BID [facility] Last Admin: 02/18/18 11:20 Dose: Not Given Pantoprazole Sodium (Protonix Ec Tab) 20 mg PO DAILY [facility] Last Admin: 02/18/18 11:21 Dose: Not Given Rosuvastatin Calcium (Crestor) 5 mg PO HS [facility] Last Admin: 02/17/18 21:26 Dose: 5 mg Saccharomyces Boulardii (Florastor) 250 mg PO BID [facility] Last Admin: 02/18/18 11:20 Dose: Not Given Sevelamer Carbonate (Renvela) 800 mg PO TID [facility] Last Admin: 02/18/18 11:21 Dose: Not Given Tiotropium [place] (Spiriva) 18 mcg INH RQ24 [facility] Last Admin: 02/17/18 07:38 Dose: 18 mcg Vitamin B Complex/Vit C/Folic Acid (Nephro-Hugo) 1 tab PO 0800 [facility] Last Admin: 02/18/18 11:20 Dose: Not Given - Labs Labs: 02/18/18 05:26 02/18/18 05:26 PT 13.3 SECONDS (9.7-12.2) H 02/15/18 08:30 INR 1.2 02/15/18 08:30 APTT 34 SECONDS (21-34) 02/15/18 08:30 - Additional Findings Additional findings: - Constitutional Appears: No Acute Distress, Chronically Ill, Other (lethargic) - Eye Exam Eye Exam: absent: Normal appearance (right eye-cataract) - ENT Exam ENT Exam: Mucous Membranes Dry - Respiratory Exam Respiratory Exam: Decreased Breath Sounds, Inspiratory Rales, Rhonchi, Wheezes. absent: Clear to Auscultation Bilateral, Respiratory Distress - Cardiovascular Exam Cardiovascular Exam: REGULAR RHYTHM, +S1, +S2, Systolic Murmur - GI/Abdominal Exam GI & Abdominal Exam: Normal Bowel Sounds, Soft. absent: Distended, Firm, Tenderness - Extremities Exam Extremities exam: Positive for: pedal edema, pedal pulses present. Negative for : tenderness Additional comments: AV fistula-left arm; + thrill - Neurological Exam Additional comments: CNII-XII intact, AAOx3 - Skin Skin Exam: Intact, Normal Color, Warm Assessment and Plan - Assessment and Plan (Free Text) Assessment: Bilateral Pneumonia: * Chest xray: diffuse b/l infiltrates; may represent edema/CHF however b/l pneumonia not excluded; b/l effusions * repeat (02/17/18): Improving bibasilar infiltrates but persistent RUL opacity. * ID consulted, Dr. Cowan, help appreciated * Follow up: legionella, strep pneumo, mycoplasma, influenza * Nasal MRSA: f/u * Lactate: 2.8, repeat was 1.8 * Procalcitonin: 1.02 H * Blood cx: f/u * Urine cx via straight cath: pt refused * Induced sputum cx: f/u * Medications: * Zosyn 2.25g IV Q8h at 6pm (active since 02/15/18) * Cipro 400mg IV daily at 10am (active 02/16/18) * Vanco 1gm IV daily at 10am (active 02/16/18), held on 02/18 due to elevated trough (25.4) CHF Exacerbation, Diastolic * Cardiology consulted, Dr. gunn, help appreciated * Echo in 08/19: concentric LVH, EF 65%, grade II diastolic dysfunction * Echo (02/17/18): LV upper limit of normal. Borderline concentric LVH. EF 65-70% . LV diastolic function normal. Left atrium mildly dilated. Trace to mild Tricuspid regurgitation. Moderate pulmonary HTN. * Strict I/Os * HOB at 45 degree angle * Daily weights Pulmonary HTN Etiology: Likely JORGE Echo (02/17/18): LV upper limit of normal. Borderline concentric LVH. EF 65-70%. LV diastolic function normal. Left atrium mildly dilated. Trace to mild Tricuspid regurgitation. Moderate pulmonary HTN. As per Dr. Moe, patient will need pulmonary f/u as an outpatient ESRD (MWF) * Nephrology consulted, Dr. Samuel- help appreciated; Dr. Samuel already aware and writtten orders for HD; * Schedule-MWF; dialysis via left arm AV fistula; patient scheduled for dialysis today * Medications: * Phoslo 667mg PO TID * Sevelamir 800mg PO TID Sepsis, Severe Resolved Source: ? Pneumonia Criteria Lactate: 2.8, repeat was 1.8 Elevated Procalcitonin 1.0 see below for Meds blood cultures negative for 24 hours pt refusing urine culture Thrombocytopenia, r/o HIT Platelet count: 124 (02/18) no heparin VTE prophylaxis, continue small doses ordered for dialysis f/u HIT AB and serotonin release assay Monitor DMII * Accuchecks ACHS * A1c (2014) 6.1 * A1c (02/16/2018): 6.1 * Start Glimepiride 2mg PO Daily * Consider Januvia if affordable for patient, superior outcomes for T2DM pts ( EMPAREG/CANVAS trials) * TSH/Free T4: WNL * Patient is not on any home insulin or hypoglycemics * ISS * Hypoglycemia protocol HTN * Continue Norvasc 10mg PO HS, Losartan 25mg PO daily * Continue clonidine 0.1mg PO BID at 8am & 8pm * Metoprolol tartrate 25mg PO BID * Continue to monitor COPD w/Sleep Apnea w/Bipap * Patient is not on any inhalers at home * Pulmonology consulted, Dr. Moe- help appreciated * Spiriva 18mcg daily * BiPAP /6 at FiO2 60% at bedtime HLD * Crestor 5mg PO HS * Lipid panel: T chol 87, LDL < 30, HDL 33, TG 59 CVA affecting left side * PT/OT eval and treat and for TRINIDAD evaluation * Continue aspirin 81mg PO daily and crestor 5mg PO HS PVD, neuropathy * Continue aspirin 81mg PO daily and crestor 5mg PO HS * Continue Gabapentin 100mg PO TID Anemia of chronic disease Etiology: Secondary to CKD Hgb stable Monitor Hyperkalemia, resolved Hypophosphotemia, resolved Phos 0.9 on admission Pt on phos-lo Hx Legally blind Prophylaxis * Protonix 20mg PO daily * Heparin 5000u sc Q8h * No SCDs due to LE neuropathy * Heart healthy 2gm Na renal low carb diet <Sherly Golden V - Last Filed: 02/18/18 20:53> Objective - Vital Signs/Intake and Output Vital Signs (last 24 hours): Temp Pulse Resp BP Pulse Ox 98.5 F 68 20 156/72 H 94 L 02/18/18 15:12 02/18/18 15:12 02/18/18 15:12 02/18/18 17:41 02/18/18 15:12 - Medications Medications: Current Medications Amlodipine Besylate (Norvasc) 10 mg PO DAILY [facility] Last Admin: 02/18/18 13:20 Dose: 10 mg Aspirin (Ecotrin) 81 mg PO DAILY [facility] Last Admin: 02/18/18 13:22 Dose: 81 mg Calcium Acetate (Phoslo) 667 mg PO TID [facility] Last Admin: 02/18/18 17:42 Dose: 667 mg Clonidine HCl (Catapres) 0.1 mg PO BID [facility] Last Admin: 02/18/18 17:41 Dose: 0.1 mg Dextrose (Dextrose 50% Inj) 0 ml IV STAT PRN; Protocol PRN Reason: Hypoglycemia Protocol Dextrose (Glutose 15) 0 gm PO ONCE PRN; Protocol PRN Reason: Hypoglycemia Protocol Docusate Sodium (Colace) 100 mg PO BID [facility] Last Admin: 02/18/18 17:42 Dose: 100 mg Epoetin Ricardo (Procrit) 8,000 unit IV [facility] Last Admin: 02/18/18 12:08 Dose: 8,000 unit Gabapentin (Neurontin) 100 mg PO TID [facility] Last Admin: 02/18/18 17:42 Dose: 100 mg Glimepiride (Amaryl) 2 mg PO DAILY [facility] Last Admin: 02/18/18 11:19 Dose: Not Given Glucagon (Glucagen Diagnostic Kit) 0 mg IM STAT PRN; Protocol PRN Reason: Hypoglycemia Protocol Heparin Sodium (Porcine) (Heparin) 2,000 units IVP [facility] Last Admin: 02/18/18 11:17 Dose: Not Given Ciprofloxacin (Cipro 400mg/200ml Dsw) 400 mg in 200 mls @ 133 mls/hr IVPB DAILY [facility] PRN Reason: Protocol Last Admin: 02/18/18 13:20 Dose: 133 mls/hr Piperacillin Sod/Tazobactam (Sod 2.25 gm/ Dextrose) 50 mls @ 200 mls/hr IVPB Q8H [facility] PRN Reason: Protocol Last Admin: 02/18/18 17:42 Dose: 200 mls/hr Dextrose (Dextrose 5% In Water 1000 Ml) 1,000 mls @ 0 mls/hr IV .Q0M PRN; Protocol; Per Protocol PRN Reason: Hypoglycemia Protocol Vancomycin HCl 1 gm/ Sodium (Chloride) 200 mls @ 133.333 mls/hr IVPB MWF [facility] PRN Reason: Protocol Insulin Human Regular (Novolin R) 0 unit SC ACHS [facility] PRN Reason: Protocol Last Admin: 02/18/18 17:43 Dose: 2 unit Metoprolol Tartrate (Lopressor) 25 mg PO BID [facility] Last Admin: 02/18/18 17:41 Dose: 25 mg Pantoprazole Sodium (Protonix Ec Tab) 20 mg PO DAILY [facility] Last Admin: 02/18/18 11:21 Dose: Not Given Rosuvastatin Calcium (Crestor) 5 mg PO HS [facility] Last Admin: 02/17/18 21:26 Dose: 5 mg Saccharomyces Boulardii (Florastor) 250 mg PO BID [facility] Last Admin: 02/18/18 17:42 Dose: 250 mg Sevelamer Carbonate (Renvela) 800 mg PO TID [facility] Last Admin: 02/18/18 17:41 Dose: 800 mg Tiotropium [place] (Spiriva) 18 mcg INH RQ24 [facility] Last Admin: 02/17/18 07:38 Dose: 18 mcg Vitamin B Complex/Vit C/Folic Acid (Nephro-Hugo) 1 tab PO 0800 [facility] Last Admin: 02/18/18 11:20 Dose: Not Given - Labs Labs: 02/18/18 05:26 02/18/18 05:26 PT 13.3 SECONDS (9.7-12.2) H 02/15/18 08:30 INR 1.2 02/15/18 08:30 APTT 34 SECONDS (21-34) 02/15/18 08:30 Attending/Attestation - Attestation I have personally seen and examined this patient.: Yes I have fully participated in the care of the patient.: Yes I have reviewed all pertinent clinical information, including history, physical exam and plan: Yes Notes (Text): Patient seen, examined and case discussed with day-time resident. Patient seen during dialysis. Patient is legally blind but very spry lady. Patient reports her goal is to go home from hospitalization. She does not want to go to rehab and wants antibiotics by mouth. I have spoken with infectious disease-->we will wait until the blood cultures are negative for another day, patient is afebrile since 02/15/18, vancomycin held since it was elevated, possible will need vancomycin x1 week and PO antibiotic. Updated assessment and plan as noted below: 1) Sepsis Bilateral Pneumonia Fluid Overload Assessment/Plan * SIRS: fever, tachypneic; suspected source: pneumonia lactate >2.0 * Chest xray: diffuse b/l infiltrates; may represent edema/CHF however b/l pneumonia not excluded; b/l effusions * sputum never done as ordered however NO WBC and vitals are stable and she has improved clinicallly. * Infectious Disease (Dr. Cowan) on board-->help appreciated * Ciprofloxacin 400mg IVPB Q daily (active since 02/16/18) * Vancomycin 1gm IVPB MWF (active since 02/20/18) adjusted by ID * Zosyn 2.25g IVPB Q8H (active since 02/16/18) * Continue the Vanco, Cipro, and Zosyn to treat HCAP with risk for MDR and MRSA Pneumonia * Florastor 250mg PO BID * Procalcitonin: 1.02 (elevated on 02/15/18) not can be elevated in light of kidney disease * Will repeat procalcitonin * Lactate acid: 2.8-->1.8 * Blood culture (02/16/18): no growth after 48 hours 2) Chronic Diastolic HF Assessment/Plan: please see report for Echocardiogram done on this admission * Aspirin 81mg PO daily * Crestor 5mg POqHS * Norvasc 10mg PO daily * Lopressor 25mg PO BID * Echocardiogram: left ventricle upper normal size. Borderline concentric left ventricular hypertrophy, ef:65-70%, left ventricular diastolic function is normal, left atrium is mildly dilated (further findings per official report) 3) ESRD on HD MWF via Left Arm AV Fistula Assessment/Plan: * Dr. Samuel (nephrology) on case-->help appreciated * Epocrit 8000 unit IV MWF * Heparin 2000 unit IVP MWF * Renvela 800mg PO TID * Neprho-hugo 1tab PO daily * Phoslo 667mg PO TID 4) Impaired Glucose Tolerance Assessment/Plan: * NO medications at home and currently on RISS. However, blood glucose has been elevated at times in the high 200s. Considering the ESRD can not use Metformin. Have started Glimepiride 2 mg PO with breakfast starting 02/18/18 * hgba1c: 6.1 * Hypoglycemic protocol 5) Hypertension Assessment/Plan: * ESRD on MWF * Norvasc 10mg PO daily * Lopressor 25mg PO BID 6) History of COPD Pulmonary Hypertension: Assessment/Plan: * Pulmonary (Dr. Yun) on the case-->help appreciated * not on medications at home. Added Spiriva upon admission. * Resident has spoken with Dr. Moe: no additional recommendations * Spiriva 18mcg inhaled qdaily 7) Thrombocytopenia Assessment/Plan: * ordered for HIT and OCTAVIO * patient is receiving Heparin with dialysis 8) History of CVA Assessment/Plan: * Aspirin 81mg PO daily * Crestor 5mg POqHS 9) History of Peripheral vascular disease Assessment/Plan: * Aspirin 81mg PO daily * Crestor 5mg POqHS 10) Anemia of Chronic Disease Assessment/Plan: * secondary to ESRD * Patient is receiving Procrit with dialysis 11) Prophylactic measure Assessment/Plan: * Chemical anticoagulation contraindication secondary to thrombocytopenia * Protonix 20mg PO daily * Florastor 250mg PO BID Disposition: pending blood cultures; will f/u with ID to determine antibiotic on discharge. Patient placed is for home. She refuses TRINIDAD.
--- NOTE | 2018-02-18 13:20 | CP.PCM.PN ---
Subjective - Date & Time of Evaluation Date of Evaluation: 02/18/18 Time of Evaluation: 13:17 - Subjective Subjective: Nephrology Consultation Note: Assessment: stable Pneumonia, fluid overload Hyperkalemia Diabetic chronic Kidney Disease (E11.22) Hypertensive Chronic Kidney Disease (I12.0) End stage renal disease (N18.6) dependence on hemodialysis (Z99.2) (MWF) via AVF Anemia (D64.9), Hyperphosphatemia (E83.39), Secondary Hyperparathyroidism (E21.1 ), HTN (I12.0) chronic Hep C Plan: plan for next dialysis today as per MWF schedule. Continue with Nephrovite 1 tab /day. PRBC as needed for anemia. On LOUISA as epogen with HD as last Hb 8.9 Continue with phos binders home dose check phos level BP control with meds as ordered. continue with home meds. she is on RAAS blockade with losartan, hold due to hyperkalemia. Glycemic control, Dialysis consistent diet Further work up/management as per primary team Dose meds/antibiotics for ESRD status. Avoid fleets enema/magnesium based laxatives CXR 02/18: improvement noted Thanks for allowing me to participate in care of your patient. Will follow patient with you. Please call if any Qs. had d/w family and team Dr Vic Samuel Office: [phone] reason for consult; ESRD HPI: Pt is a 67 F with hx of ESRD on hemodialysis (MWF) via AVF, last dialysis wed x 4 years @ [facility], chronic anemia, hyperphosphatemia, secondary hyperparathyroidism, Diabetes Mellitus, hypertension, chronic Hep C, legally blind, neuropathy presented with complaints of SOB and fever x 1 day and being admitted for pneumonia. renal consult for ESRD management. pt says she felt fine 1 day before. felt cold with chills at home with SOB x 1 day. ROS: She feels better now Denies chest pain, palpitation, better shortness of breath, denies leg swelling. makes small amount of urine has cough. all other negative upset about extra HD done on sat Physical Examination: seen on HD General Appearance: Comfortable, in no acute respiratory distress, co-operative . Vitals reviewed and noted as below Head; Atraumatic, normocephalic ENT: no ulcers no thrush. Tongue is midline. Oropharynx: no rash or ulcers. EYES: she is blind Neck; supple no lymphadenopathy, no thyromegaly or bruit Lungs: Normal respiratory rate/effort. Breath sounds bilateral improved, has few crackles Heart: Normal rate. s1s2 normal. No rub or gallop. Extremities: no edema. No varicose veins Neurological: Patient is alert, awake and oriented to person, place and time. No focal deficit. Strength bilateral appropriate and equal Skin: Warm and dry. Normal turgor. No rash. Palpitation: Normal elasticity for age Abdomen: Abdomen is soft. Bowel sounds +. There is no abdominal tenderness, no guarding/rigidity or organomegaly Psych: normal insight and normal affect/mood MSK: no joint tenderness or swelling. Digits and nails normal, no deformity : kidney or bladder not palpable Access: AVF LUE with thrill and bruit Labs/imaging reviewed. Past medical history, past surgical history, family history, social history, allergy reviewed and noted as below Family Hx: no hx of CKD. Non contributory normal LV function: echo aug 2017 Objective - Vital Signs/Intake and Output Vital Signs (last 24 hours): Temp Pulse Resp BP Pulse Ox 98 F 64 16 144/71 98 02/18/18 12:34 02/18/18 12:34 02/18/18 12:34 02/18/18 12:34 02/18/18 12:34 Intake and Output: 02/18/18 02/18/18 06:59 18:59 Intake Total 50 Balance 50 - Medications Medications: Current Medications Amlodipine Besylate (Norvasc) 10 mg PO DAILY [facility] Last Admin: 02/18/18 11:21 Dose: Not Given Aspirin (Ecotrin) 81 mg PO DAILY [facility] Last Admin: 02/18/18 11:20 Dose: Not Given Calcium Acetate (Phoslo) 667 mg PO TID [facility] Last Admin: 02/18/18 11:21 Dose: Not Given Clonidine HCl (Catapres) 0.1 mg PO BID [facility] Last Admin: 02/18/18 11:19 Dose: Not Given Dextrose (Dextrose 50% Inj) 0 ml IV STAT PRN; Protocol PRN Reason: Hypoglycemia Protocol Dextrose (Glutose 15) 0 gm PO ONCE PRN; Protocol PRN Reason: Hypoglycemia Protocol Docusate Sodium (Colace) 100 mg PO BID [facility] Last Admin: 02/18/18 11:20 Dose: Not Given Epoetin Ricardo (Procrit) 8,000 unit IV [facility] Last Admin: 02/18/18 12:08 Dose: 8,000 unit Gabapentin (Neurontin) 100 mg PO TID [facility] Last Admin: 02/18/18 11:20 Dose: Not Given Glimepiride (Amaryl) 2 mg PO DAILY [facility] Last Admin: 02/18/18 11:19 Dose: Not Given Glucagon (Glucagen Diagnostic Kit) 0 mg IM STAT PRN; Protocol PRN Reason: Hypoglycemia Protocol Heparin Sodium (Porcine) (Heparin) 2,000 units IVP [facility] Last Admin: 02/18/18 11:17 Dose: Not Given Ciprofloxacin (Cipro 400mg/200ml Dsw) 400 mg in 200 mls @ 133 mls/hr IVPB DAILY [facility] PRN Reason: Protocol Last Admin: 02/18/18 11:19 Dose: Not Given Piperacillin Sod/Tazobactam (Sod 2.25 gm/ Dextrose) 50 mls @ 200 mls/hr IVPB Q8H [facility] PRN Reason: Protocol Last Admin: 02/18/18 11:21 Dose: Not Given Dextrose (Dextrose 5% In Water 1000 Ml) 1,000 mls @ 0 mls/hr IV .Q0M PRN; Protocol; Per Protocol PRN Reason: Hypoglycemia Protocol Vancomycin HCl 1 gm/ Sodium (Chloride) 200 mls @ 133.333 mls/hr IVPB [facility] PRN Reason: Protocol Insulin Human Regular (Novolin R) 0 unit SC [facility] PRN Reason: Protocol Last Admin: 02/18/18 12:30 Dose: Not Given Metoprolol Tartrate (Lopressor) 25 mg PO BID [facility] Last Admin: 02/18/18 11:20 Dose: Not Given Pantoprazole Sodium (Protonix Ec Tab) 20 mg PO DAILY [facility] Last Admin: 02/18/18 11:21 Dose: Not Given Rosuvastatin Calcium (Crestor) 5 mg PO [facility] Last Admin: 02/17/18 21:26 Dose: 5 mg Saccharomyces Boulardii (Florastor) 250 mg PO BID [facility] Last Admin: 02/18/18 11:20 Dose: Not Given Sevelamer Carbonate (Renvela) 800 mg PO TID [facility] Last Admin: 02/18/18 11:21 Dose: Not Given Tiotropium [place] (Spiriva) 18 mcg INH RQ24 [facility] Last Admin: 02/17/18 07:38 Dose: 18 mcg Vitamin B Complex/Vit C/Folic Acid (Nephro-Lorena) 1 tab PO 0800 [facility] Last Admin: 02/18/18 11:20 Dose: Not Given - Labs Labs: 02/18/18 05:26 02/18/18 05:26 PT 13.3 SECONDS (9.7-12.2) H 02/15/18 08:30 INR 1.2 02/15/18 08:30 APTT 34 SECONDS (21-34) 02/15/18 08:30
[2018-02-18 16:13] VITALS: RESP 20
[2018-02-19] MEDS: PIPERACILLIN IVPB SCH ×2 (01:04→09:30)
[2018-02-19] MEDS: DEXTROSE 5% IVPB SCH ×2 (01:04→09:30)
[2018-02-19] MEDS: WATER IVPB SCH ×2 (01:04→09:30)
[2018-02-19] MEDS: TAZOBACT IVPB SCH ×2 (01:04→09:30)
[2018-02-19] MEDS: Tiotropium 18 mcg Cap For Inhalation INH SCH (07:54)
[2018-02-19 08:07] LABS: BASO % 0.6 % (0.0-2.0); EOS # 0.2 K/uL (0.0-0.7); EOS % 5.1 % (0.0-4.0); HEMOGLOBIN 9.1 g/dL (11.0-16.0); LYMPH # 0.7 K/uL (1.0-4.3); LYMPH % 22.6 % (20.0-40.0); MEAN CORPUSCULAR HEMOGLOBIN 27.7 pg (27.0-31.0); MEAN CORPUSCULAR HGB CONC 33.3 g/dL (33.0-37.0); MEAN PLATELET VOLUME 9.3 fL (7.2-11.7); MONO # 0.5 K/uL (0.0-0.8); MONO % 15.3 % (0.0-10.0); NEUT # 1.7 K/uL (1.8-7.0); NEUT % 56.4 % (50.0-75.0); NRBC % 0.2 % (0.0-2.0); RBC 3.3 Mil/uL (3.80-5.20); RED CELL DISTRIBUTION WIDTH 13.8 % (11.5-14.5)
[2018-02-19 08:28] LABS: ALB/GLOB RATIO 0.9 (1.0-2.1); ALBUMIN 3.6 g/dL (3.5-5.0); CALCIUM 8.7 mg/dl (8.6-10.4)
[2018-02-19 08:37] VITALS: BP 166/75; TEMP 98.2; O2SAT 99
[2018-02-19] MEDS: (Novolin R) Insulin Human Regular 100 units/ml vial SC SCH ×2 (08:43→13:36)
[2018-02-19] MEDS: Multivitamin Vitamin B Complex (Nephro-Vite) Tab PO SCH (08:43)
[2018-02-19] MEDS: Ciprofloxacin 400mg/200ml D5W 400 MG/200 ML BAG IVPB SCH (10:00)
[2018-02-19] MEDS: Pantoprazole 20 mg EC Tab PO SCH (10:58)
[2018-02-19] MEDS: Saccharomyces Boulardi 250 mg Cap PO SCH (11:05)
--- NOTE | 2018-02-19 12:14 | RAD ---
HISTORY: Pneumonia, fluid overload COMPARISON: Comparison made with prior study 02/17/2018 FINDINGS: No change right IJ central line with tip in the SVC LUNGS: Mild central pulmonary vascular congestive changes with questionable small bilateral effusions PLEURA: As above. No pneumothorax apparent. CARDIOVASCULAR: Heart remains enlarged. OSSEOUS STRUCTURES: Mild multilevel degenerative spondylosis of the thoracic spine VISUALIZED UPPER ABDOMEN: Normal. OTHER FINDINGS: None. IMPRESSION: Mild central pulmonary vascular congestive changes with questionable small bilateral effusions
--- NOTE | 2018-02-19 12:24 | CP.PCM.DIS ---
Addendum entered and electronically signed by Joana Ochoa 02/19/18 17:22 : Condition: Stable Original Note: <Joana Ochoa - Last Filed: 02/19/18 16:49> Provider - Provider Date of Admission: 02/15/18 09:00 Attending physician: Ja Randall MD Primary care physician: PMD: Dr. Gonzales Consults: ID:[email or web address] Cardio: Parminder Nephro: Jimmie Pulm: Payal Time Spent in preparation of Discharge (in minutes): 45 Diagnosis - Discharge Diagnosis (1) Pneumonia Status: Resolved (2) CHF (congestive heart failure) Status: Chronic (3) CKD (chronic kidney disease) requiring chronic dialysis Status: Chronic (4) Hypertension Status: Chronic (5) Chronic hepatitis Status: Chronic (6) Pulmonary hypertension Status: Chronic Hospital Course - Lab Results Lab Results: Micro Results 02/16/18 19:30 Blood-Venous Blood Culture - Preliminary NO GROWTH AFTER 48 HOURS 02/16/18 19:00 Blood-Venous Blood Culture - Preliminary NO GROWTH AFTER 48 HOURS Most Recent Lab Values WBC 3.0 K/uL (4.8-10.8) L 02/19/18 07:52 RBC 3.30 Mil/uL (3.80-5.20) L 02/19/18 07:52 Hgb 9.1 g/dL (11.0-16.0) L 02/19/18 07:52 Hct 27.3 % (34.0-47.0) L 02/19/18 07:52 MCV 83.0 fL (81.0-99.0) 02/19/18 07:52 MCH 27.7 pg (27.0-31.0) 02/19/18 07:52 MCHC 33.3 g/dL (33.0-37.0) 02/19/18 07:52 RDW 13.8 % (11.5-14.5) 02/19/18 07:52 Plt Count 154 K/uL (130-400) 02/19/18 07:52 MPV 9.3 fL (7.2-11.7) 02/19/18 07:52 Neut % (Auto) 56.4 % (50.0-75.0) 02/19/18 07:52 Lymph % (Auto) 22.6 % (20.0-40.0) 02/19/18 07:52 Freestone % (Auto) 15.3 % (0.0-10.0) H 02/19/18 07:52 Eos % (Auto) 5.1 % (0.0-4.0) H 02/19/18 07:52 Baso % (Auto) 0.6 % (0.0-2.0) 02/19/18 07:52 Neut # (Auto) 1.7 K/uL (1.8-7.0) L 02/19/18 07:52 Lymph # (Auto) 0.7 K/uL (1.0-4.3) L 02/19/18 07:52 Freestone # (Auto) 0.5 K/uL (0.0-0.8) 02/19/18 07:52 Eos # (Auto) 0.2 K/uL (0.0-0.7) 02/19/18 07:52 Baso # (Auto) 0.0 K/uL (0.0-0.2) 02/19/18 07:52 Neutrophils % (Manual) 72 % (50-75) 02/15/18 08:30 Lymphocytes % (Manual) 11 % (20-40) L 02/15/18 08:30 Monocytes % (Manual) 17 % (0-10) H 02/15/18 08:30 Platelet Estimate Normal (NORMAL) 02/15/18 08:30 Hypochromasia (manual) Slight 02/15/18 08:30 Poikilocytosis (manual Slight 02/15/18 08:30 Anisocytosis (manual) Slight 02/15/18 08:30 PT 13.3 SECONDS (9.7-12.2) H 02/15/18 08:30 INR 1.2 02/15/18 08:30 APTT 34 SECONDS (21-34) 02/15/18 08:30 pO2 42 mm/Hg (30-55) 02/15/18 11:05 VBG pH 7.41 (7.32-7.43) 02/15/18 11:05 VBG pCO2 55 mmHg (40-60) 02/15/18 11:05 VBG HCO3 31.0 mmol/L 02/15/18 11:05 VBG Total CO2 36.6 mmol/L (22-28) H 02/15/18 11:05 VBG O2 Sat (Calc) 83.7 % (40-65) H 02/15/18 11:05 VBG Base Excess 8.4 mmol/L (0.0-2.0) H 02/15/18 11:05 VBG Potassium 6.8 mmol/L (3.6-5.2) H* 02/15/18 11:05 Sodium 133.0 mmol/l (132-148) 02/15/18 11:05 Chloride 100.0 mmol/L (98-107) 02/15/18 11:05 Glucose 191 mg/dl (65-105) H 02/15/18 11:05 Lactate 1.8 mmol/L (0.7-2.1) 02/15/18 11:05 Crit Value Called To Kelle hernandez (cruz) 02/15/18 11:05 Crit Value Called By Alden valderrama,[employer] customer experience specialist 02/15/18 11:05 Crit Value Read Back Y 02/15/18 11:05 Blood Gas Notified Time 1122 02/15/18 11:05 Sodium 133 mmol/L (132-148) 02/19/18 07:52 Potassium 4.9 mmol/L (3.6-5.2) 02/19/18 07:52 Chloride 91 mmol/L (98-107) L 02/19/18 07:52 Carbon Dioxide 31 mmol/L (22-30) H 02/19/18 07:52 Anion Gap 16 (10-20) 02/19/18 07:52 BUN 20 mg/dL (7-17) H 02/19/18 07:52 Creatinine 5.6 mg/dL (0.7-1.2) H 02/19/18 07:52 Est GFR ( Amer) 9 02/19/18 07:52 Est GFR (Non-Af Amer) 8 02/19/18 07:52 POC Glucose (mg/dL) 159 mg/dL (65-110) H 02/19/18 11:17 Random Glucose 162 mg/dL (65-105) H 02/19/18 07:52 Hemoglobin A1c 6.1 % (4.2-6.5) 02/16/18 07:21 Calcium 8.7 mg/dl (8.6-10.4) 02/19/18 07:52 Phosphorus 2.8 mg/dL (2.5-4.5) 02/19/18 07:52 Magnesium 2.0 mg/dL (1.6-2.3) 02/19/18 07:52 Total Bilirubin 0.6 mg/dL (0.2-1.3) 02/19/18 07:52 AST 41 U/L (14-36) H D 02/19/18 07:52 ALT 31 U/L (9-52) 02/19/18 07:52 Alkaline Phosphatase 57 U/L (38-126) 02/19/18 07:52 Total Protein 7.5 g/dL (6.3-8.3) 02/19/18 07:52 Albumin 3.6 g/dL (3.5-5.0) 02/19/18 07:52 Globulin 3.9 gm/dL (2.2-3.9) 02/19/18 07:52 Albumin/Globulin Ratio 0.9 (1.0-2.1) L 02/19/18 07:52 Triglycerides 59 mg/dL (0-149) 02/16/18 07:21 Cholesterol 87 mg/dL (0-199) 02/16/18 07:21 LDL Cholesterol Direct < 30 mg/dL (0-129) 02/16/18 07:21 HDL Cholesterol 33 mg/dL (30-70) 02/16/18 07:21 Procalcitonin 1.02 NG/ML (0.19-0.49) H 02/15/18 11:00 Thyroxine (T4) 5.54 ug/dL (5.5-11.0) 02/16/18 07:21 TSH 3rd Generation 2.69 mIU/L (0.46-4.68) 02/16/18 07:21 Venous Blood Potassium 6.8 mmol/L (3.6-5.2) H* 02/15/18 11:05 Vancomycin Trough 25.4 ug/mL (5.0-10.0) H 02/18/18 09:22 Influenza Typ A,B (EIA) Negative for flu a/b (NEGATIVE) 02/15/18 13:30 H.influenzae Type B Ag Negative (NEGATIVE) 02/15/18 17:49 Mycoplasma pneumon IgG 4.89 (<=0.90) H 02/15/18 10:00 N.meningitidis ACY/W135 Negative (NEGATIVE) 02/15/18 17:49 N.meningi B/E.coli K1 Ag Negative (NEGATIVE) 02/15/18 17:49 Group B Strep Antigen Negative (NEGATIVE) 02/15/18 17:49 S. pneumoniae Antigen Negative (NEGATIVE) 02/15/18 17:49 - Hospital Course Hospital Course: "HPI: Patient is a 67 year old female with a past medical history of ESRD on hemodialysis (Sunday, Sunday, Sunday), COPD, CHF, diabetes, hypertension, macular degeneration, peripheral neuropathy, hyperlipidemia, and CVA, who presents to the ED with complaints of shortness of breath for two days. She originally went to [facility] ER, and was transferred to [facility] as [facility] does not have dialysis center. Patient is a poor historian due to lethargy secondary to receiving pain medication in the ED. She states she felt short of breath two days ago after getting dialysis, and the dyspnea has persisted. She also reports having nausea, vomiting, and abdominal pain. Review of systems limited due to patient's lethargy secondary to medication given in ED." Patient admitted for bilateral pneumonia and acute on chronic diastolic CHF exacerbation with sepsis. Patient's lactate found to be 2.8 on admission. Chest xray on admission showed diffuse b/l infiltrates; may represent edema/CHF however b/l pneumonia not excluded; b/l effusions. Patient treated with Zosyn, Cipro, and Vanco. Dr. Cowan (ID) was consulted. Influenza Type A, B, n. meningitidis, group b strep, strep pneumo were negative. Blood culture was negative after 48 hours. For patient's CHF, echo was done(02/17/18) which showed LV upper limit of normal. Borderline concentric LVH. EF 65-70%. LV diastolic function normal. Left atrium mildly dilated. Trace to mild Tricuspid regurgitation. Moderate pulmonary HTN. Dr. Zurita and Dr. Moe were consulted. Patient will need further workup as an outpatient. Patient has a history of COPD and Spiriva 18mcg daily was given. Patient's ESRD was managed by Dr. Samuel (nephro). Patient received dialysis via left arm AV fistula MWF. Patient also treated with Phoslo 667mg PO TID and Sevelamir 800mg PO TID. For patient's chronic HTN, patient was treated with Norvasc 10mg PO daily and Lopressor 25mg PO BID. Patient's platelet count dropped down to 119 on 02/17. Heparin prophylaxis was stopped. HIT antibodies and serotonin release assay were ordered and will need to be followed up as an outpatient. Patient's platelets upon discharge were 154. Patient found to have HgA1c of 6.1 with blood glucose elevations at times in the high 200s. Considering the ESRD could not use Metformin. Patient was started on Glimepiride 2 mg daily. For patient's history of CVA and peripheral vascular disease patient was continued on Aspirin 81mg PO daily and Crestor 5mg POqHS. For patient's anemia of chronic disease secondary to ESRD, Procrit given with dialysis. Upon discharge patient feeling well with no complaints. Patient will receive three more doses of Vanco with dialysis and Levaquin by mouth as per infectious disease. Patient will continue to get dialysis MWF as an outpatient. This is a summary of the patient's hospital course, please see chart for full details. Discharge Exam - Additional Findings Additional findings: - Constitutional Appears: No Acute Distress, Chronically Ill, Other (lethargic) - Eye Exam Eye Exam: absent: Normal appearance (right eye-cataract) - ENT Exam ENT Exam: Mucous Membranes Dry - Respiratory Exam Respiratory Exam: Decreased Breath Sounds absent:Rales, Rhonchi, Wheezes. - Cardiovascular Exam Cardiovascular Exam: REGULAR RHYTHM, +S1, +S2, Systolic Murmur - GI/Abdominal Exam GI & Abdominal Exam: Normal Bowel Sounds, Soft. absent: Distended, Firm, Tenderness - Extremities Exam Extremities exam: Positive for: pedal edema, pedal pulses present. Negative for : tenderness Additional comments: AV fistula-left arm; + thrill - Neurological Exam Additional comments: CNII-XII intact, AAOx3 - Skin Skin Exam: Intact, Normal Color, Warm Discharge Plan - Discharge Medications Prescriptions: RX: amLODIPine [Norvasc] 10 mg PO DAILY #30 tab RX: Aspirin [Ecotrin] 81 mg PO DAILY #30 tabec RX: Atorvastatin [Lipitor] 10 mg PO DIN #30 tab RX: Calcium Acetate [Phoslo] 667 mg PO TID #90 tab RX: cloNIDine [Catapres] 0.1 mg PO BID #60 tab RX: Gabapentin [Neurontin] 100 mg PO TID #90 cap RX: Glimepiride [amaRYL] 2 mg PO DAILY #30 tab Levofloxacin [Levaquin] 500 mg PO Q48H #3 tablet RX: Metoprolol Tartrate [Lopressor] 25 mg PO BID #60 tab RX: Pantoprazole Sodium [Protonix] 20 mg PO DAILY 30 Days #30 ect RX: Saccharomyces Boulardi [Florastor] 250 mg PO BID #28 cap RX: Sevelamer [Renagel] 800 mg PO TID #90 tab RX: Tiotropium [Spiriva] 18 mcg INH RQ24 #1 inhaler RX: Vancomycin [Vancomycin Inj] 1 gm IVPB MWF 3 Days vial - Follow Up Plan Condition: GUARDED Disposition: HOME/ ROUTINE Instructions: Saccharomyces boulardii, Dialysis Diet , Heart Failure, Adult (DC ), Hyperkalemia (DC), Hemodialysis (DC), Levofloxacin (Systemic), Kidney Failure (DC), Pneumonia, Adult (DC), Atorvastatin, Gabapentin, Metoprolol, End Stage Kidney Disease (DC) Additional Instructions: Patient stable for discharge as per Dr. Golden. Patient to take prescriptions as prescribed. Patient will need Vanco 1 g with dialysis for 3 total doses. Patient to also take Levaquin 500mg every other day for 3 total doses. Patient explained instructions who understands and agrees. Patient explained instructions who understands and agrees. <Sherly Golden V - Last Filed: 02/19/18 21:10> Provider - Provider Date of Admission: 02/15/18 09:00 Attending physician: Ja Randall MD Hospital Course - Lab Results Lab Results: Micro Results 02/16/18 19:30 Blood-Venous Blood Culture - Preliminary NO GROWTH AFTER 3 DAYS 02/16/18 19:00 Blood-Venous Blood Culture - Preliminary NO GROWTH AFTER 3 DAYS Most Recent Lab Values WBC 3.0 K/uL (4.8-10.8) L 02/19/18 07:52 RBC 3.30 Mil/uL (3.80-5.20) L 02/19/18 07:52 Hgb 9.1 g/dL (11.0-16.0) L 02/19/18 07:52 Hct 27.3 % (34.0-47.0) L 02/19/18 07:52 MCV 83.0 fL (81.0-99.0) 02/19/18 07:52 MCH 27.7 pg (27.0-31.0) 02/19/18 07:52 MCHC 33.3 g/dL (33.0-37.0) 02/19/18 07:52 RDW 13.8 % (11.5-14.5) 02/19/18 07:52 Plt Count 154 K/uL (130-400) 02/19/18 07:52 MPV 9.3 fL (7.2-11.7) 02/19/18 07:52 Neut % (Auto) 56.4 % (50.0-75.0) 02/19/18 07:52 Lymph % (Auto) 22.6 % (20.0-40.0) 02/19/18 07:52 Freestone % (Auto) 15.3 % (0.0-10.0) H 02/19/18 07:52 Eos % (Auto) 5.1 % (0.0-4.0) H 02/19/18 07:52 Baso % (Auto) 0.6 % (0.0-2.0) 02/19/18 07:52 Neut # (Auto) 1.7 K/uL (1.8-7.0) L 02/19/18 07:52 Lymph # (Auto) 0.7 K/uL (1.0-4.3) L 02/19/18 07:52 Freestone # (Auto) 0.5 K/uL (0.0-0.8) 02/19/18 07:52 Eos # (Auto) 0.2 K/uL (0.0-0.7) 02/19/18 07:52 Baso # (Auto) 0.0 K/uL (0.0-0.2) 02/19/18 07:52 Neutrophils % (Manual) 72 % (50-75) 02/15/18 08:30 Lymphocytes % (Manual) 11 % (20-40) L 02/15/18 08:30 Monocytes % (Manual) 17 % (0-10) H 02/15/18 08:30 Platelet Estimate Normal (NORMAL) 02/15/18 08:30 Hypochromasia (manual) Slight 02/15/18 08:30 Poikilocytosis (manual Slight 02/15/18 08:30 Anisocytosis (manual) Slight 02/15/18 08:30 PT 13.3 SECONDS (9.7-12.2) H 02/15/18 08:30 INR 1.2 02/15/18 08:30 APTT 34 SECONDS (21-34) 02/15/18 08:30 pO2 42 mm/Hg (30-55) 02/15/18 11:05 VBG pH 7.41 (7.32-7.43) 02/15/18 11:05 VBG pCO2 55 mmHg (40-60) 02/15/18 11:05 VBG HCO3 31.0 mmol/L 02/15/18 11:05 VBG Total CO2 36.6 mmol/L (22-28) H 02/15/18 11:05 VBG O2 Sat (Calc) 83.7 % (40-65) H 02/15/18 11:05 VBG Base Excess 8.4 mmol/L (0.0-2.0) H 02/15/18 11:05 VBG Potassium 6.8 mmol/L (3.6-5.2) H* 02/15/18 11:05 Sodium 133.0 mmol/l (132-148) 02/15/18 11:05 Chloride 100.0 mmol/L (98-107) 02/15/18 11:05 Glucose 191 mg/dl (65-105) H 02/15/18 11:05 Lactate 1.8 mmol/L (0.7-2.1) 02/15/18 11:05 Crit Value Called To Kelle hernandez (cruz) 02/15/18 11:05 Crit Value Called By Alden valderrama,[employer] customer experience specialist 02/15/18 11:05 Crit Value Read Back Y 02/15/18 11:05 Blood Gas Notified Time 1122 02/15/18 11:05 Sodium 133 mmol/L (132-148) 02/19/18 07:52 Potassium 4.9 mmol/L (3.6-5.2) 02/19/18 07:52 Chloride 91 mmol/L (98-107) L 02/19/18 07:52 Carbon Dioxide 31 mmol/L (22-30) H 02/19/18 07:52 Anion Gap 16 (10-20) 02/19/18 07:52 BUN 20 mg/dL (7-17) H 02/19/18 07:52 Creatinine 5.6 mg/dL (0.7-1.2) H 02/19/18 07:52 Est GFR ( Amer) 9 02/19/18 07:52 Est GFR (Non-Af Amer) 8 02/19/18 07:52 POC Glucose (mg/dL) 159 mg/dL (65-110) H 02/19/18 11:17 Random Glucose 162 mg/dL (65-105) H 02/19/18 07:52 Hemoglobin A1c 6.1 % (4.2-6.5) 02/16/18 07:21 Calcium 8.7 mg/dl (8.6-10.4) 02/19/18 07:52 Phosphorus 2.8 mg/dL (2.5-4.5) 02/19/18 07:52 Magnesium 2.0 mg/dL (1.6-2.3) 02/19/18 07:52 Total Bilirubin 0.6 mg/dL (0.2-1.3) 02/19/18 07:52 AST 41 U/L (14-36) H D 02/19/18 07:52 ALT 31 U/L (9-52) 02/19/18 07:52 Alkaline Phosphatase 57 U/L (38-126) 02/19/18 07:52 Total Protein 7.5 g/dL (6.3-8.3) 02/19/18 07:52 Albumin 3.6 g/dL (3.5-5.0) 02/19/18 07:52 Globulin 3.9 gm/dL (2.2-3.9) 02/19/18 07:52 Albumin/Globulin Ratio 0.9 (1.0-2.1) L 02/19/18 07:52 Triglycerides 59 mg/dL (0-149) 02/16/18 07:21 Cholesterol 87 mg/dL (0-199) 02/16/18 07:21 LDL Cholesterol Direct < 30 mg/dL (0-129) 02/16/18 07:21 HDL Cholesterol 33 mg/dL (30-70) 02/16/18 07:21 Procalcitonin 2.05 NG/ML (0.19-0.49) H 02/19/18 07:52 Thyroxine (T4) 5.54 ug/dL (5.5-11.0) 02/16/18 07:21 TSH 3rd Generation 2.69 mIU/L (0.46-4.68) 02/16/18 07:21 Venous Blood Potassium 6.8 mmol/L (3.6-5.2) H* 02/15/18 11:05 Vancomycin Trough 25.4 ug/mL (5.0-10.0) H 02/18/18 09:22 Influenza Typ A,B (EIA) Negative for flu a/b (NEGATIVE) 02/15/18 13:30 H.influenzae Type B Ag Negative (NEGATIVE) 02/15/18 17:49 Mycoplasma pneumon IgG 4.89 (<=0.90) H 02/15/18 10:00 Mycoplasma pneumon IgM 14 U/mL (<770) 02/15/18 10:00 N.meningitidis ACY/W135 Negative (NEGATIVE) 02/15/18 17:49 N.meningi B/E.coli K1 Ag Negative (NEGATIVE) 02/15/18 17:49 Group B Strep Antigen Negative (NEGATIVE) 02/15/18 17:49 S. pneumoniae Antigen Negative (NEGATIVE) 02/15/18 17:49 Attending/Attestation - Attestation I have personally seen and examined this patient.: Yes I have fully participated in the care of the patient.: Yes I have reviewed all pertinent clinical information, including history, physical exam and plan: Yes Notes (Text): Patient seen, examined and case discussed with medical scientific liaison. Patient seen this morning. Patient reports she feels well denies acute complaints and wants to go home. Resident has spoken with infectious disease who has recommend PO Levaquin upon discharge and vancomycin with post dialysis sessions. We have also spoken with nephrology who has asked script to Vancomycin to be sent to patient's dialysis so she can resume tomorrow on her normal dialysis. I have discussed patient's uncontrolled blood pressure who is familiar with the patient. Recommends against increasing the Lopressor dose because her blood pressure has been labile and particularly her heart rate which he has known to go into the 40-50s. He recommends to continue current regiment in regards to anti-hypertensive therapy. Repeat procalcitonin is elevated but i do suspect it is falsely elevated since the value is impacted by her chronic kidney disease. Patient has been afebrile since her initial fever on 02/15/18. Blood cultures are negative for 3 days and chest xray is improved since 02/17/18. 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 Medications upon discharge include: Patient to continue Levaquin every 2 days to complete in 6 days total. patient to complete Vancomycin 1 gram IVPB Q MWF for 3 sessions. Patient given prescription for aspirin, statin, beta-mitch, amlodipine, glipizde, spiriva, protonix, and florastor. Patient's TLC removed prior to admission. No complications noted. Patient is stable for discharge home. This is a summary of patient's hospitalization. Please see EMR for further details of record. Discharge Diagnoses: 1) Sepsis->Stable Bilateral Pneumonia-->Stable Fluid Overload-->stable Assessment/Plan * SIRS: fever, tachypneic; suspected source: pneumonia lactate >2.0 * Chest xray: diffuse b/l infiltrates; may represent edema/CHF however b/l pneumonia not excluded; b/l effusions * sputum never done as ordered however NO WBC and vitals are stable and she has improved clinicallly. * Infectious Disease (Dr. Cowan) on board-->help appreciated * Ciprofloxacin 400mg IVPB Q daily (active since 02/16/18) * Vancomycin 1gm IVPB MWF (active since 02/20/18) adjusted by ID * Zosyn 2.25g IVPB Q8H (active since 02/16/18) * On discharge, ID has recommended for Patient to continue Levaquin every 2 days to complete in 6 days total. patient to complete Vancomycin 1 gram IVPB Q MWF for 3 sessions. * Florastor 250mg PO BID * Procalcitonin: 1.02 (elevated on 02/15/18) *error in my prior note: this value can be elevated in light of kidney disease * Repeat procalcitonin is elevated but i do suspect it is falsely elevated since the value is impacted by her chronic kidney disease. Patient has been afebrile since her initial fever on 02/15/18. Blood cultures are negative for 3 days and chest xray is improved since 02/17/18. * Lactate acid: 2.8-->1.8 * Blood culture (02/16/18): no growth after 3 days 2) Chronic Diastolic HF--Chronic Assessment/Plan: please see report for Echocardiogram done on this admission * Aspirin 81mg PO daily * Crestor 5mg POqHS * Norvasc 10mg PO daily * Lopressor 25mg PO BID * Echocardiogram: left ventricle upper normal size. Borderline concentric left ventricular hypertrophy, ef:65-70%, left ventricular diastolic function is normal, left atrium is mildly dilated (further findings per official report) * Heart failure core measures completed upon discharge 3) ESRD on HD MWF via Left Arm AV Fistula---Chronic Assessment/Plan: * Dr. Samuel (nephrology) on case-->help appreciated * Epocrit 8000 unit IV MWF * Heparin 2000 unit IVP MWF * Renvela 800mg PO TID * Neprho-hugo 1tab PO daily * Phoslo 667mg PO TID * Patient to resume dialysis per nephrology 4) Impaired Glucose Tolerance--Chronic Assessment/Plan: * NO medications at home and currently on RISS. However, blood glucose has been elevated at times in the high 200s. Considering the ESRD can not use Metformin. Have started Glimepiride 2 mg PO with breakfast starting 02/18/18 * hgba1c: 6.1 * Hypoglycemic protocol 5) Hypertension--Chronic Assessment/Plan: * ESRD on MWF * Norvasc 10mg PO daily * Lopressor 25mg PO BID 6) History of COPD--Chronic Pulmonary Hypertension: Assessment/Plan: * Pulmonary (Dr. Yun) on the case-->help appreciated * not on medications at home. Added Spiriva upon admission. * Resident has spoken with Dr. Moe: no additional recommendations * Spiriva 18mcg inhaled qdaily * To follow up outpatient 7) Thrombocytopenia-->Resolved Assessment/Plan: * ordered for HIT and OCTAVIO * patient is receiving Heparin with dialysis * Platelets have normalized 8) History of CVA--Chronic Assessment/Plan: * Aspirin 81mg PO daily * Crestor 5mg POqHS 9) History of Peripheral vascular disease--Chronic Assessment/Plan: * Aspirin 81mg PO daily * Crestor 5mg POqHS 10) Anemia of Chronic Disease--Chronic Assessment/Plan: * secondary to ESRD * Patient is receiving Procrit with dialysis 11) Prophylactic measure Assessment/Plan: * Chemical anticoagulation contraindication secondary to thrombocytopenia * Protonix 20mg PO daily * Florastor 250mg PO BID
[2018-02-19 12:47] VITALS: PULSE 55
--- NOTE | 2018-02-19 14:42 | CP.PCM.PN ---
Subjective - Date & Time of Evaluation Date of Evaluation: 02/19/18 Time of Evaluation: 14:40 - Subjective Subjective: Nephrology Consultation Note: Assessment: stable Pneumonia, fluid overload Hyperkalemia Diabetic chronic Kidney Disease (E11.22) Hypertensive Chronic Kidney Disease (I12.0) End stage renal disease (N18.6) dependence on hemodialysis (Z99.2) (MWF) via AVF Anemia (D64.9), Hyperphosphatemia (E83.39), Secondary Hyperparathyroidism (E21.1 ), HTN (I12.0) chronic Hep C Plan: plan for next dialysis tomorrow as per MWF schedule. Continue with Nephrovite 1 tab/day. PRBC as needed for anemia. On LOUISA as epogen with HD as last Hb 9.1 Continue with phos binders home dose check phos level BP control with meds as ordered. continue with home meds. she is on RAAS blockade with losartan, hold due to hyperkalemia. Glycemic control, Dialysis consistent diet Further work up/management as per primary team Dose meds/antibiotics for ESRD status. Avoid fleets enema/magnesium based laxatives CXR 02/18: improvement noted pt stable for d/c from renal perspective when planned Thanks for allowing me to participate in care of your patient. Will follow patient with you. Please call if any Qs. had d/w family and team Dr Vic Samuel Office: [phone] reason for consult; ESRD HPI: Pt is a 67 F with hx of ESRD on hemodialysis (MWF) via AVF, last dialysis wed x 4 years @ [place], chronic anemia, hyperphosphatemia, secondary hyperparathyroidism, Diabetes Mellitus, hypertension, chronic Hep C, legally blind, neuropathy presented with complaints of SOB and fever x 1 day and being admitted for pneumonia. renal consult for ESRD management. pt says she felt fine 1 day before. felt cold with chills at home with SOB x 1 day. ROS: She feels better now Denies chest pain, palpitation, better shortness of breath, denies leg swelling. makes small amount of urine has cough. all other negative says I am ready to go home Physical Examination: General Appearance: Comfortable, in no acute respiratory distress, co-operative . Vitals reviewed and noted as below Head; Atraumatic, normocephalic ENT: no ulcers no thrush. Tongue is midline. Oropharynx: no rash or ulcers. EYES: she is blind Neck; supple no lymphadenopathy, no thyromegaly or bruit Lungs: Normal respiratory rate/effort. Breath sounds bilateral improved, has few crackles at bases Heart: Normal rate. s1s2 normal. No rub or gallop. Extremities: no edema. No varicose veins Neurological: Patient is alert, awake and oriented to person, place and time. No focal deficit. Strength bilateral appropriate and equal Skin: Warm and dry. Normal turgor. No rash. Palpitation: Normal elasticity for age Abdomen: Abdomen is soft. Bowel sounds +. There is no abdominal tenderness, no guarding/rigidity or organomegaly Psych: normal insight and normal affect/mood MSK: no joint tenderness or swelling. Digits and nails normal, no deformity : kidney or bladder not palpable Access: AVF LUE with thrill and bruit Labs/imaging reviewed. Past medical history, past surgical history, family history, social history, allergy reviewed and noted as below Family Hx: no hx of CKD. Non contributory normal LV function: echo aug 2017 Objective - Vital Signs/Intake and Output Vital Signs (last 24 hours): Temp Pulse Resp BP Pulse Ox 98.2 F 55 L 20 166/75 H 99 02/19/18 07:40 02/19/18 12:07 02/19/18 07:40 02/19/18 07:40 02/19/18 07:40 Intake and Output: 02/19/18 02/19/18 06:59 18:59 Intake Total 200 Balance 200 - Labs Labs: 02/19/18 07:52 02/19/18 07:52 PT 13.3 SECONDS (9.7-12.2) H 02/15/18 08:30 INR 1.2 02/15/18 08:30 APTT 34 SECONDS (21-34) 02/15/18 08:30
--- NOTE | 2018-02-19 17:18 | PCM.HF ---
Heart Failure Core Measure - Heart Failure Ejection Fraction: 40 % or Greater PAULO Inhibitor Prescribed: No Contraindication/Reason for not providing: ESRD Beta-Lana Prescribed: Metoprolol Succinate Angiotensin II Receptor Lana Prescribed: No Contraindication/Reason for not providing: not clinically indicated AnticoagulationTherapy for Atrial Fibrillation/Atrialflutter: No Contraindication/Reason for not providing: no a fib Aldosterone Antagonist Prescribed: No Contraindication/Reason for not providing: not clinically indicated Hydralazine Nitrate Prescribed: No Contraindication/Reason for not providing: not clinically indicated Implantable Cardioverter Defibrillator Therapy: No Contraindication/Reason for not providing: not clinically indicated Cardiac Resynchronization Therapy Prescribed: No Contraindication/Reason for not providing: not clinically indicated - Follow up Will be discharged to: Home Follow Up Date (must be within 7 days from discharge): 02/26/18 Follow Up Time: 09:00
[2018-02-20] MEDS ORDERED: Vancomycin 1 GM in Sodium Chloride 0.9% 200 ML IVPB SCH (10:00)
== END 2018-02-19 14:38 | disposition home or self-care (01) | DRG 193 ==
LOC: C.ER 07:20 → C.9E 09:00 → C.6T 10:36
PROVIDERS: ADMIT Family Medicine; ATTEND Family Medicine
PROC: 5A1D70Z Performance of Urinary Filtration, Intermittent, Less than 6 Hours Per Day (ICD-10-PCS; principal; 2018-02-16)
PROC: 5A1D70Z Performance of Urinary Filtration, Intermittent, Less than 6 Hours Per Day (ICD-10-PCS; 2018-02-18)
DX: J18.9 Pneumonia, unspecified organism (principal); A41.9 Sepsis, unspecified organism; I50.33 Acute on chronic diastolic (congestive) heart failure; N18.6 End stage renal disease; J44.0 Chronic obstructive pulmonary disease with (acute) lower respiratory infection; N25.81 Secondary hyperparathyroidism of renal origin; I13.2 Hypertensive heart and chronic kidney disease with heart failure and with stage 5 chronic kidney disease, or end stage renal disease; I27.20 Pulmonary hypertension, unspecified; H54.8 Legal blindness, as defined in USA; H35.30 Unspecified macular degeneration; E87.5 Hyperkalemia; E10.51 Type 1 diabetes mellitus with diabetic peripheral angiopathy without gangrene; E11.42 Type 2 diabetes mellitus with diabetic polyneuropathy; E11.22 Type 2 diabetes mellitus with diabetic chronic kidney disease; E11.51 Type 2 diabetes mellitus with diabetic peripheral angiopathy without gangrene; E83.39 Other disorders of phosphorus metabolism; D63.1 Anemia in chronic kidney disease; D69.6 Thrombocytopenia, unspecified; E78.5 Hyperlipidemia, unspecified; B18.2 Chronic viral hepatitis C; G47.30 Sleep apnea, unspecified; F03.90 Unspecified dementia, unspecified severity, without behavioral disturbance, psychotic disturbance, mood disturbance, and anxiety; Z99.2 Dependence on renal dialysis; Z89.421 Acquired absence of other right toe(s); Z79.4 Long term (current) use of insulin; Z79.899 Other long term (current) drug therapy; Z86.73 Personal history of transient ischemic attack (TIA), and cerebral infarction without residual deficits; Z79.82 Long term (current) use of aspirin; Z87.891 Personal history of nicotine dependence; Z90.49 Acquired absence of other specified parts of digestive tract

== ENCOUNTER 2018-11-10 06:59 | Emergency (ER) | payer MEDICARE, MEDICAID ==
[2018-11-10 07:00] VITALS: BMI 28.5
[2018-11-10 07:11] VITALS: RESP 20; TEMP 97.8
--- NOTE | 2018-11-10 07:56 | C.PDOC ---
History Of Present Illness 68 years old female presents to ED for complaints of bleeding to her left arm dialysis shunt. Patient states blood was "all over the bed." Patient reports her found her bleeding this morning then applied gauze and tape then came to the ER. Patient reports last dialysis was on Sunday and next dialysis is on Sunday. Patient also reports similar complaints 2 weeks ago but she controlled the bleeding at home. Denies any pain, shortness of breath, or any other physical complaints. [employer]: * Christo Cervantes Time Seen by Provider: 11/10/18 07:10 Chief Complaint (Nursing): Abnormal Skin Integrity History Per: Patient History/Exam Limitations: no limitations Onset/Duration Of Symptoms: Hrs Current Symptoms Are (Timing): Still Present Location Of Injury: Left: Arm Recent travel outside of the [place]: No Past Medical History Reviewed: Historical Data, Nursing Documentation, Vital Signs Vital Signs: Last Vital Signs Temp 97.8 F 11/10/18 07:08 Pulse 56 L 11/10/18 07:08 Resp 20 11/10/18 07:08 BP 121/48 L 11/10/18 07:08 Pulse Ox 100 11/10/18 07:08 - Medical History PMH: CHF, COPD, Dementia, Diabetes, Gall Bladder Disease, HTN, Peripheral Edema, Chronic Kidney Disease, Sleep Apnea Surgical History: Cholecystectomy - [facility] (02/15/18) ANGIOPLASTY OF OTHER NON-CORONARY VESSEL(S) (04/30/15) CENTRAL VENOUS CATHETER PLACEMENT WITH GUIDANCE (02/20/13) COLONOSCOPY (02/20/13) CONTRAST RENAL ARTERIOGR (04/09/06) CORONAR ARTERIOGR-2 CATH (04/09/06) DX ULTRASOUND-HEART (04/09/06) ESOPHAGOGASTRODUODENOSCOPY [EGD] W/CLOSED BIOPSY (02/20/13) HEMODIALYSIS (10/31/14) INFLUENZA VACCINATION (06/04/13) INJECT/INFUSE NEC (05/11/14) LT HEART ANGIOCARDIOGRAM (04/09/06) NON-INVASIVE MECHANICAL VENTILATION (06/04/13) OTHER ENDOSCOPY OF SM INTEST (06/04/13) PERFORMANCE OF URINARY FILTRATION, MULTIPLE (05/29/15) PROCEDURE ON SINGLE VESSEL (04/30/15) RT/LEFT HEART CARD CATH (04/09/06) Family History: States: No Known Family Hx - Social History Hx Tobacco Use: Yes (Quit years ago) Hx Alcohol Use: No Hx Substance Use: No - Immunization History Hx Tetanus Toxoid Vaccination: No Hx Influenza Vaccination: No Hx Pneumococcal Vaccination: No Review Of Systems Except As Marked, All Systems Reviewed And Found Negative. Constitutional: Negative for: Fever, Chills Cardiovascular: Negative for: Chest Pain Respiratory: Negative for: Shortness of Breath Skin: Positive for: Other (Bleeding from left arm dialysis shunt ). Negative for: Rash Neurological: Negative for: Weakness, Numbness Physical Exam - Physical Exam Appears: Non-toxic, No Acute Distress Skin: Normal Color, Warm, Dry Head: Atraumatic, Normacephalic Eye(s): right: Other (opacified), left: Normal Inspection, PERRL, EOMI Oral Mucosa: Moist Neck: Normal ROM, Supple Chest: Symmetrical Cardiovascular: Rhythm Regular, Other (Normal S1, S2) Respiratory: Normal Breath Sounds, No Rales, No Rhonchi, No Wheezing, Other (Good air movement, Lungs CTA bilaterally) Gastrointestinal/Abdominal: Soft, No Tenderness, No Guarding, No Rebound Extremity: Normal ROM, Other (Thrill in left arm) Extremity: Bilateral: Atraumatic, Normal Color And Temperature, Normal ROM, Other (no cyanosis or edema) Neurological/Psych: Oriented x3, Normal Speech, Normal Motor (5/5 muscle strength), Normal Sensation, Other ( GCS 15, CN 2-12 intact) Gait: Steady ED Course And Treatment - Laboratory Results Result Diagrams: 11/10/18 09:29 O2 Sat by Pulse Oximetry: 100 (RA) Pulse Ox Interpretation: Normal Medical Decision Making Medical Decision Makin:00: There is no pressure dresser on patient's arm. Patient only has gauze and tape. There is no active bleeding. 9:05: Spoke with Dr. Dowling (Doctor patient transportation driver instead of doctor Sawyer) which recommends hemoglobin check. He suggests if at baseline then patient will be stable for discharge home but if hemoglobin is not at baseline then patient will have to follow up for a fistulagram. Plan: * Blood work 10:09: Patient's Hemoglobin is normal and she will be discharged home. Care instru ctions provided for patient and patient is in agreement. Patient denies any complaints at this time. Patient is stable for discharge and will be discharged. Return if symptoms persist, worsen, or return. Disposition Counseled Patient/Family Regarding: Studies Performed, Diagnosis, Need For Followup - Disposition Referrals: Christo Jacques MD [Staff Provider] - Disposition: HOME/ ROUTINE Disposition Time: 10:13 Additional Instructions: LAMONT NEFF, thank you for letting us take care of you today. Your provider was Tisha Schulz MD and you were treated for BLEEDING. The emergency medical care you received today was directed at your acute symptoms. If you were prescribed any medication, please fill it and take as directed. It may take several days for your symptoms to resolve. Return to the Emergency Department if your symptoms worsen, do not improve, or if you have any other problems. Please contact your doctor in one day for further evaluation regarding your dialysis access to find out why it was bleeding. Bring any paperwork you were given at discharge with you along with any medications you are taking to your follow up visit. Our treatment cannot replace ongoing medical care by a primary care provider outside of the emergency department. Thank you for allowing the [facility] team to be part of your care today. Instructions: Arteriovenous Fistula for Dialysis (DC) Forms: [employer] (Nepalese), General Discharge Instructions - Clinical Impression Clinical Impression: Complication of arteriovenous dialysis fistula - Scribe Statement The provider has reviewed the documentation as recorded by the Reggieibcaridad Jones All medical record entries made by the Scribe were at my direction and personally dictated by me. I have reviewed the chart and agree that the record accurately reflects my personal performance of the history, physical exam, medical decision making, and the department course for this patient. I have also personally directed, reviewed, and agree with the discharge instructions and disposition.
[2018-11-10 09:23] VITALS: BP 116/69; PULSE 54
[2018-11-10 09:41] LABS: BASO % 0.4 % (0.0-2.0); EOS # 0.2 K/uL (0.0-0.7); EOS % 3.1 % (0.0-4.0); LYMPH # 1.7 K/uL (1.0-4.3); LYMPH % 29.2 % (20.0-40.0); MEAN CORPUSCULAR HEMOGLOBIN 27.3 pg (27.0-31.0); MEAN CORPUSCULAR HGB CONC 30.9 g/dL (33.0-37.0); MEAN PLATELET VOLUME 10.2 fL (7.2-11.7); MONO # 0.6 K/uL (0.0-0.8); MONO % 9.8 % (0.0-10.0); NEUT # 3.3 K/uL (1.8-7.0); NEUT % 57.5 % (50.0-75.0); NRBC % 0.1 % (0.0-2.0); RBC 4.28 Mil/uL (3.80-5.20); RED CELL DISTRIBUTION WIDTH 15.1 % (11.5-14.5)
[2018-11-10 09:46] LABS: HEMOGLOBIN 11.7 g/dL (11.0-16.0); WHITE BLOOD COUNT 5.8 K/uL (4.8-10.8)
[2018-11-10 09:47] LABS: MEAN CELL VOLUME 88.4 fL (81.0-99.0)
[2018-11-10 10:11] VITALS: O2SAT 100
== END 2018-11-10 10:17 | disposition home or self-care (01) ==
LOC: C.ER 06:59
DX: T82.838A Hemorrhage due to vascular prosthetic devices, implants and grafts, initial encounter (principal); Y84.9 Medical procedure, unspecified as the cause of abnormal reaction of the patient, or of later complication, without mention of misadventure at the time of the procedure